=== PATIENT | male | born 1960 | race Caucasian/White ===

== ENCOUNTER → 2016-06-09 | Outpatient (CLI) | payer BC ==
[~2016-06-09] MED LIST: CEPH500C PO; LEVO75TA5 PO; LEVO88TA PO; LISI-729 PO
[2016-06-09 09:52] LABS: BASO % 1.8 %; BASO ABS # 0.08 K/uL (0-0.2); COMPLETE YES; EOS % 4.5 %; HEMATOCRIT 45.4 % (42-52); IG% 1.8 %; LYMPH % 21.5 %; LYMPH ABS # 0.96 K/uL (1.2-3.4); MEAN CELL VOLUME 89.7 fL (80-100); MEAN CORPUSCULAR HGB CONC 34.6 g/dl (32-36); MEAN PLATELET VOLUME 11.6 fL (7.4-10.4); NEUT % 57.4 %; PLATELET COUNT 213 K/uL (130-400); RED BLOOD COUNT 5.06 M/uL (4.7-6.1); WHITE BLOOD COUNT 4.46 K/uL (4.8-10.8)
[2016-06-09 10:09] LABS: ALB/GLOB RATIO 1.5 (0.9-2); ALKALINE PHOSPHATASE 71 U/L (45-117); ALT/SGPT 38 U/L (12-78); AST/SGOT 19 U/L (15-37); BLOOD UREA NITROGEN 24 mg/dl (7-18); BUN/CREATININE RATIO 25.1 (10-20); CARBON DIOXIDE 26 mmol/L (21-32); CHLORIDE 110 mmol/L (98-107); CHOLESTEROL 160 mg/dl (0-200); CHOLESTEROL/HDL RATIO 3.9; CREATININE 0.96 mg/dl (0.60-1.40); GLUCOSE 102 mg/dl (70-99); HDL CHOLESTEROL 41 mg/dl; LDL CHOLESTEROL CALCULATED 87 mg/dl; POTASSIUM 4.1 mmol/L (3.5-5.1); SODIUM 142 mmol/L (136-145); TRIGLYCERIDES 161 mg/dl (0-150); VERY LOW DENSITY LIPOPROT CALC 32 mg/dl
[2016-06-09 10:13] LABS: CALCIUM 9.3 mg/dl (8.5-10.1); ESTIMATED AVERAGE GLUCOSE 111 mg/dl; HA1C FLAG Normal (Normal)
== END | disposition home or self-care (01) ==
LOC: C.LAB1850 07:51
PROVIDERS: ATTEND Nurse Practitioner Family
DX: E03.9 Hypothyroidism, unspecified (principal); E88.81 Metabolic syndrome and other insulin resistance

== ENCOUNTER → 2016-07-31 | Outpatient (CLI) | payer BC ==
[2016-07-31 10:14] LABS: CALCIUM 9.8 mg/dl (8.5-10.1)
[2016-07-31 10:16] LABS: BLOOD UREA NITROGEN 22 mg/dl (7-18); BUN/CREATININE RATIO 22.1 (10-20); CARBON DIOXIDE 25 mmol/L (21-32); CHLORIDE 108 mmol/L (98-107); GLUCOSE 103 mg/dl (70-99); SODIUM 142 mmol/L (136-145)
== END | disposition home or self-care (01) ==
LOC: C.LAB1850 08:42
PROVIDERS: ATTEND Nurse Practitioner Family
DX: Z11.59 Encounter for screening for other viral diseases (principal); I10 Essential (primary) hypertension; E03.9 Hypothyroidism, unspecified

== ENCOUNTER 2016-08-12 15:04 | Emergency (ER) | payer BC ==
[~2016-08-12] VITALS: Ht 177.8 cm; Wt 97.3 kg
[~2016-08-12 15:04] MED LIST changes: -CEPH500C PO; -LEVO88TA PO; -LISI-729 PO
[2016-08-12 15:15] VITALS: TEMP 36.4; Ht 177.8 cm; Wt 97.3 kg
[2016-08-12] MEDS ORDERED: LEVO88TA PO (15:23)
[2016-08-12] MEDS ORDERED: LISI-729 PO (15:23)
[2016-08-12] MEDS ORDERED: XYLOCAINE 1%/SOD BICARB 20 ML VIAL INFIL ONE (15:45)
[2016-08-12] MEDS ORDERED: BUPIVACAINE 0.5 % 5 MG/1 ML MPF 30ML VIAL INFIL ONE (15:45)
[2016-08-12] MEDS ORDERED: DIPHTHERIA/TETANUS/PERTUSSIS 0.5 ML SYR/VIAL IM. ONE (16:15)
--- NOTE | 2016-08-12 16:40 | DIAGNOSTIC IMAGING REPORT ---
RIGHT HAND 3 VIEWS CLINICAL HISTORY: Right hand pain. Crushing injury. Fifth digit laceration. FINDINGS: 3 views of the right hand are obtained. No prior studies are available for comparison at the time of dictation. The skeletal structures are well mineralized. No fracture is seen. The joint spaces of the hand are well-maintained. Minimal degenerative change is seen at the distal radial ulnar joint. Soft tissue swelling is present dorsally, greatest overlying the fifth digit. No radiodense foreign body is seen. IMPRESSION: 1. There is no radiographic evidence of fracture in the right hand. 2. Soft tissue swelling is seen dorsally, greatest overlying the fifth finger. Electronically signed by: Aneesh Ivey M.D. 08/12/2016 4:39 PM Dictated Date/Time: 08/12/2016 4:37 PM
[2016-08-12] MEDS ORDERED: CEPH500C PO (17:14)
--- NOTE | 2016-08-12 17:18 | EMERGENCY ROOM VISIT NOTE ---
ED Visit Note First contact with patient: 15:30 CHIEF COMPLAINT: Finger laceration HISTORY OF PRESENT ILLNESS: This 55-year-old male patient presents to the emergency department approximately one hour after cutting the medial and lateral aspects of the right fifth finger as well as the dorsal aspect of his right hand when he dropped a transmission on his hand. The bleeding has mostly stopped, however he continues to experience bleeding with agitation of the wound. Denies weakness or numbness of the finger. The patient has full range of motion of the fingers. The patient rates the pain as throbbing and 9/10. The patient denies any other injuries. The patient's tetanus shot is not up to date. He should and is right-handed. He denies wrist discomfort. REVIEW OF SYSTEMS: A 6 system review of systems was completed with positives and pertinent negatives listed in the HPI. ALLERGIES: None MEDICATIONS: Synthroid, lisinopril PMH: Hypothyroidism, hypertension SOCIAL HISTORY: Lives locally with his family. He denies tobacco, alcohol, drug use. PHYSICAL EXAM: Vital Signs: Reviewed Nurse's notes, vital signs stable. GENERAL : 55-year-old male, in no acute distress, well developed, well nourished. SKIN : There are 2- 1.5 cm long lacerations on the medial and lateral aspect of the right fifth finger. There is also a 2 cm laceration on the medial, dorsal aspect of the right hand. The edges of all lacerations gape apart with traction. There are no foreign materials in the wounds and they look clean. There is minimal active bleeding. No deep structures such as tendons, bones, or significant blood vessels are seen in the base of the wounds. Extension and flexion of the finger is full and strong. Full range of motion of the wrist and other fingers. Capillary refill less than 2 seconds. Normal sensation to light and sharp touch. Strength in fingers and hand 5/5. EMERGENCY DEPARTMENT COURSE: I examined the patient. Verbal consent was obtained to perform the procedure. Using sterile technique the wound was cleansed with Betadine. 5 ml of 1% buffered lidocaine with 0.5% bupivocaine was used to perform a digital block to anesthetize the patient. 2ml of 1% buffered lidocaine was used to locally anesthetize the wound on the hand. The area was sterilely draped. Once the patient was anesthetized, the wound was copiously irrigated under pressure with sterile saline. The wounds were explored and there were no deep structures injured. The laceration of the hand was repaired using 7 simple interrupted 5-0 nylon sutures. The laceration on the medial aspect of the finger was repaired using 5 simple interrupted 5-0 nylon sutures. The laceration on the lateral aspect of the finger was repaired using 4 simple interrupted 5-0 nylon sutures. The patient tolerated the procedure well. Hemostasis was achieved. The area was cleaned with sterile saline and dressed with bacitracin ointment and bandage. The patient was given a tetanus booster. An X-ray of the hand was performed to r/o FB or fracture. Results were read by myself and radiology and are as follow: FINDINGS: 3 views of the right hand are obtained. No prior studies are available for comparison at the time of dictation. The skeletal structures are well mineralized. No fracture is seen. The joint spaces of the hand are well-maintained. Minimal degenerative change is seen at the distal radial ulnar joint. Soft tissue swelling is present dorsally, greatest overlying the fifth digit. No radiodense foreign body is seen. IMPRESSION: 1. There is no radiographic evidence of fracture in the right hand. 2. Soft tissue swelling is seen dorsally, greatest overlying the fifth finger. Results were reviewed and the patient was discharged home in good condition. DIAGNOSIS: Finger laceration, hand laceration DIFFERENTIAL DIAGNOSIS: Metacarpal fracture, phalange fracture, abrasion, contusion, soft-tissue damage such as tendon or ligamentous rupture or sprain, and others. DISCHARGE INSTRUCTIONS & TREATMENT: Cephalexin(Keflex) 500mg: Take one pill four times daily for 10 days for your skin infection. All antibiotics can cause diarrhea. If this occurs and you feel worse or it does not resolve in 1-2 days follow up with your doctor or return to the Emergency Department as this could be signs of serious underlying problems. Any medication can cause an allergic reaction, stop the pills immediately and return to the ER for rash, hives, breathing difficulties, or swelling. You have received 16 total sutures on your right pinky and hand. These sutures are NOT dissolvable and WILL need to be removed by a health care provider in 8- 10 days. You can return to the Emergency Department or contact your Primary Care Provider to have the sutures removed. Proper wound care is essential for adequate wound healing and infection prevention. You can shower and clean the wound with soap and water. Do not scour over the wound, pat dry with a towel. Do not submerse the wound (i.e. bathe or dish wash) until the sutures have been removed. You can use an antibiotic ointment with a dressing over the wound for the next 3-4 days. After this time you may leave the wound dry and open to the air. If crust develops over the wound you can use a Q-tip to apply a 1:1 peroxide:water solution to clean the wound. Look for signs of infection of the wound including: increased pain, swelling, foul discharge, streaking, or increased temperature. If any of these are noticed you should return to the Emergency Department for further assessment and treatment. As with any laceration you may have received nerve damage to the surrounding tissues. This damage may or may not be permanent. You should keep the area covered with sunscreen for the first 6 months to 1 year when at risk for exposure to help minimize scarring. You can also use scar reducing creams or Vitamin E oil to help minimize scarring. For pain control, you can use the following [id number] medicines (if >12 yo): - Regular strength (325mg/tab) Tylenol (acetaminophen) 2 tabs every 4-6 hours as needed. Do not exceed 12 tablets in a 24 hour period. Avoid taking more than 4 grams (4000 mg) of Tylenol per day. This includes any other sources of acetaminophen you may take on a regular basis. - Regular strength (200 mg/tab) Advil (ibuprofen) 1-2 tabs every 4-6 hours as needed. Do not exceed a dose of 3200 mg per day. Return to the emergency department if your symptoms worsen despite treatment course outlined above. Follow-up with your PCP in 2-3 days for recheck. Current/Historical Medications Scheduled Cephalexin Monohydrate (Keflex), 500 MG PO QID Levothyroxine Sodium (Synthroid), 88 MCG PO DAILY Lisinopril (Zestril), 5 MG PO DAILY Allergies Coded Allergies: No Known Allergies (Unverified , 12/29/15) Vital Signs Date Time Temp Pulse Resp B/P (MAP) Pulse Ox O2 Delivery O2 Flow Rate FiO2 08/12/16 17:26 62 18 120/62 97 08/12/16 15:15 36.4 59 18 115/56 96 Room Air Medications Administered Medications (Trade) Dose Ordered Sig/Ronnie Route Start Time Stop Time Status Last Admin Dose Admin Diphtheria/ Pertussis/Tetanus Vacc (Adacel Inj) 0.5 ml ONCE ONCE IM. 08/12/16 16:15 08/12/16 16:16 DC 08/12/16 16:18 0.5 ML Departure Information Impression Primary Impression: Laceration of finger Additional Impression: Laceration of hand Dispostion Home / Self-Care Condition GOOD Prescriptions Cephalexin Monohydrate (Keflex) 500 Mg Cap 500 MG PO QID for 10 Days, #40 CAP Prov: Tiffany Barney PA-C 08/12/16 Referrals No Doctor, Assigned (PCP) Patient Instructions [facility], [facility] Additional Instructions Cephalexin(Keflex) 500mg: Take one pill four times daily for 10 days for your skin infection. All antibiotics can cause diarrhea. If this occurs and you feel worse or it does not resolve in 1-2 days follow up with your doctor or return to the Emergency Department as this could be signs of serious underlying problems. Any medication can cause an allergic reaction, stop the pills immediately and return to the ER for rash, hives, breathing difficulties, or swelling. You have received 16 total sutures on your right pinky and hand. These sutures are NOT dissolvable and WILL need to be removed by a health care provider in 8- 10 days. You can return to the Emergency Department or contact your Primary Care Provider to have the sutures removed. Proper wound care is essential for adequate wound healing and infection prevention. You can shower and clean the wound with soap and water. Do not scour over the wound, pat dry with a towel. Do not submerse the wound (i.e. bathe or dish wash) until the sutures have been removed. You can use an antibiotic ointment with a dressing over the wound for the next 3-4 days. After this time you may leave the wound dry and open to the air. If crust develops over the wound you can use a Q-tip to apply a 1:1 peroxide:water solution to clean the wound. Look for signs of infection of the wound including: increased pain, swelling, foul discharge, streaking, or increased temperature. If any of these are noticed you should return to the Emergency Department for further assessment and treatment. As with any laceration you may have received nerve damage to the surrounding tissues. This damage may or may not be permanent. You should keep the area covered with sunscreen for the first 6 months to 1 year when at risk for exposure to help minimize scarring. You can also use scar reducing creams or Vitamin E oil to help minimize scarring. For pain control, you can use the following jucc-sth-rpqscia medicines (if >12 yo): - Regular strength (325mg/tab) Tylenol (acetaminophen) 2 tabs every 4-6 hours as needed. Do not exceed 12 tablets in a 24 hour period. Avoid taking more than 4 grams (4000 mg) of Tylenol per day. This includes any other sources of acetaminophen you may take on a regular basis. - Regular strength (200 mg/tab) Advil (ibuprofen) 1-2 tabs every 4-6 hours as needed. Do not exceed a dose of 3200 mg per day. Return to the emergency department if your symptoms worsen despite treatment course outlined above. Follow-up with your PCP in 2-3 days for recheck. Problem Qualifiers Primary Impression: Laceration of finger Encounter type: initial encounter Finger: little finger Damage to nail status: without damage Foreign body presence: without foreign body Laterality: right Qualified Codes: S61.216A - Laceration without foreign body of right little finger without damage to nail, initial encounter Additional Impression: Laceration of hand Encounter type: initial encounter Foreign body presence: without foreign body Laterality: right Qualified Codes: S61.411A - Laceration without foreign body of right hand, initial encounter
[2016-08-12 17:26] VITALS: BP 120/62; PULSE 62; O2SAT 97
== END 2016-08-12 17:26 | disposition home or self-care (01) ==
LOC: C.EDB 15:05 → C.EDD 17:26
DX: S61.216A Laceration without foreign body of right little finger without damage to nail, initial encounter (principal); S61.411A Laceration without foreign body of right hand, initial encounter; W22.8XXA Striking against or struck by other objects, initial encounter; I10 Essential (primary) hypertension; E03.9 Hypothyroidism, unspecified; Z79.899 Other long term (current) drug therapy; Z23 Encounter for immunization

== ENCOUNTER 2016-08-22 11:29 | Emergency (ER) | payer BC ==
[~2016-08-22] VITALS: Ht 177.8 cm; Wt 100.2 kg
[~2016-08-22 11:29] MED LIST changes: +CEPH500C PO; -LEVO75TA5 PO; +LEVO88TA PO; +LISI-729 PO
[2016-08-22 11:40] VITALS: BP 138/83; PULSE 62; TEMP 36.7; O2SAT 97; Ht 177.8 cm; Wt 100.2 kg
--- NOTE | 2016-08-22 15:43 | EMERGENCY ROOM VISIT NOTE ---
ED Visit Note First contact with patient: 11:47 CHIEF COMPLAINT: Suture removal This patient returns to the ED today for removal of sutures that were placed 10 days ago. There has been no swelling, redness, or drainage from the wound. The patient feels like the laceration is healing well. REVIEW OF SYSTEMS: Head: No headache, injury or neck pain. Skin: No rash, new lesions, or masses. General: No fever or chills, fatigue, loss of appetite , or significant recent weight gain or loss. PMH: Reviewed and unchanged from prior visit. SOCIAL HISTORY: Patient lives at home. PHYSICAL EXAM: Vital Signs: Reviewed Nurse's notes. There are 3 sutured wounds on the right fifth finger with no signs of infection. There is no erythema, swelling, or tenderness. EMERGENCY DEPARTMENT COURSE: The sutures were removed without any difficulty and there was no separation of the wound edges. DIAGNOSIS: Healing laceration and suture removal DISCHARGE INSTRUCTIONS AND TREATMENT: Wash any remaining crusts off of the wound today and resume your normal activities. Current/Historical Medications Scheduled Cephalexin Monohydrate (Keflex), 500 MG PO QID Levothyroxine Sodium (Synthroid), 88 MCG PO DAILY Lisinopril (Zestril), 5 MG PO DAILY Allergies Coded Allergies: No Known Allergies (Unverified , 08/22/16) Vital Signs Date Time Temp Pulse Resp B/P (MAP) Pulse Ox O2 Delivery O2 Flow Rate FiO2 08/22/16 11:40 36.7 62 18 138/83 97 Room Air Departure Information Impression Primary Impression: Encounter for removal of sutures Dispostion Home / Self-Care Condition GOOD Referrals No Doctor, Assigned (PCP) Forms HOME CARE DOCUMENTATION FORM, IMPORTANT VISIT INFORMATION Patient Instructions [facility]
== END 2016-08-22 12:07 | disposition home or self-care (01) ==
LOC: C.EDB 11:30 → C.EDD 12:07
DX: S61.216D Laceration without foreign body of right little finger without damage to nail, subsequent encounter (principal); X58.XXXD Exposure to other specified factors, subsequent encounter

== ENCOUNTER 2020-02-07 09:50 | Inpatient (IN) ==
[2020-02-07] MEDS ORDERED: NITROGLYCERIN SL 0.4 MG/TAB TAB SL PRN (10:00)
[2020-02-07] MEDS ORDERED: ASPIRIN CHEW 324 MG PO STA (10:00)
--- NOTE | 2020-02-07 10:04 | Emergency Department Note ---
Impression & Plan ST elevation (STEMI) myocardial infarction, Chest pain ED Provider Note NAME: MICHAEL CARTAGENA AGE: 59 SEX: M : 1960 ARRIVES VIA: Walk-In INFORMANT: Patient, ED PROVIDER(S): Miller Jay MD Chief Complaint: Chest pain HPI: Patient does present with chest pain beginning approximately 1 hour prior to arrival. The patient states he was drinking a protein shake and developed a centralized chest and throat discomfort. Patient does not have any difficulty swallowing but states that it improved after walking for about 15 minutes but recurred while sitting down at his computer and this presented. Patient denies any fevers chills or shortness of breath. The patient states that his pain does go into the bilateral arms. Patient denies any nausea or vomiting or lower extremity swelling. No prior history of DVT or PE. The patient denies any recent travel or surgical procedures. Patient does have family history of DC in his father who had an DC in his 50s. ROS: See HPI for pertinent positives and negatives. A total of 10 systems were reviewed and otherwise negative. Past medical history: See below Surgical history: See below Social history: See below Physical Exam: GENERAL: Patient wearing a mask. NAD, non-toxic. EYE EXAM: Normal conjunctiva. PERRL, no anisocoria and EOM's grossly intact w/o pain. NECK: Supple, no nuchal rigidity, no adenopathy, non-tender. No signs of meningismus. LUNGS: Clear to auscultation. Normal chest wall mechanics. HEART: NSR, no MRG. ABDOMEN: Abdomen soft, non-tender, normo-active bowel sounds, no masses, no rebound or guarding. BACK: No CVA TTP. SKIN: No rashes and no bruising. UPPER EXTREMITIES: Upper extremities are grossly normal. LOWER EXTREMITIES: Grossly normal, no edema. NEURO EXAM: A&O x3, cranial nerves II-XII grossly intact, normal speech, moves all 4 extremities on command w/o issue. Differential diagnoses: Cardiac ischemia, aortic dissection, pulmonary embolism, pneumothorax, pneumonia, pericarditis, myocarditis, esophageal rupture, GERD, cholecystitis, pancreatitis, musculoskeletal, as well as other pathologies. Course: Patient was seen and evaluated the bedside. Full history physical exam was performed. EKG: Indication: Chest pain Sinus rhythm rate of 74, normal intervals, normal axis, ST downward sloping inferiorly with possible hyperacute T waves in V3 and V4. No priors for comparison. Repeat EKG completed at 1005 Normal sinus rhythm, rate 87, normal intervals, normal axis, persistent downward sloping ST segment inferiorly with hyperacute T waves seen anteriorly. Imaging Studies: None Cardiac monitoring: An order was placed for continuous cardiac monitoring. The monitor shows a rate of 88 with sinus rhythm. MDM: Patient was seen due to concerns for chest pain. Repeat EKG was obtained which did show concern for hyperacute T waves. The patient did receive full dose aspirin 1 nitro with improvement in pain. Heparin bolus and drip were ordered. Heart alert had been initiated upon viewing the second EKG. I did speak with the patient's at the patient's behest. She understood the plan. I did talk with the loading unit tool setter Dr. Raman and the patient was taken to the S[facility]per. The patient was admitted to the medicine service by Dr. Gould. Critical Care: I have personally spent 55 minutes of critical care time in direct management of this patient. This includes bedside care, interpretation of diagnostic studies, and testing, discussion with consultants, patient, and family members, and other require inpatient management activities. This 55 minutes is in excess of all separately billable procedures. Past Med/Surg History Medical History (Updated 02/07/20 @ 11:47 by Miller Jay MD) BPH (benign prostatic hyperplasia) Dysmetabolic syndrome X Hypertension Hypothyroidism Surgical History History of bilateral cataract extraction History of colonoscopy History of tooth extraction [place] teeth removed Family History Sister Colonic polyp Mother Hypothyroidism Colorectal cancer Father Cardiac disorder Myocardial infarction Other No family history of adverse response to anesthesia Denies family history of Ovarian cancer Prostate cancer Breast cancer Social History Smoking Status: Former smoker Tobacco Type: Cigarettes Age Started Using Tobacco: 13; Age Quit Using Tobacco: 21; packs per day: 1; Years Smoked: 8; Second Hand Exposure: Yes (parents smoked); Hx Alcohol Use: No Hx Substance Use: No Preferred Language: Stateless Communication Ability: Effective Visual Impairment: No Limitations Hearing Ability: Normal Mainframe Systems Administrator Required: No Beliefs That Will Affect Care: None marital status: Current Living Situation: Spouse current occupational status: employed 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 Feels Safe at Home: Yes Childhood Exposure to Second-Hand Smoke: Yes Dental Care, Regularly: Yes Physical Activity Frequency: 5-6 Times per Week Seatbelt Use: always Sunscreen Use: No Assistive Devices: Glasses Allergies Allergies Allergy/AdvReac Type Severity Reaction Status Date / Time No Known Allergies Allergy Verified 02/07/20 10:14 Home Meds Home Medications Medication Instructions Recorded Confirmed levothyroxine 100 mcg PO QAM 02/07/20 02/07/20 Previous Rx's Medication Instructions Recorded tamsulosin 0.4 mg capsule 0.4 mg PO HS #30 cap 02/18/19 Results & Data (ED) Vital Signs Vital Signs - 24 hr 02/07/20 09:56 02/07/20 09:59 02/07/20 10:00 Temperature 36.6 C Temperature Source Oral Pulse Rate 90 100 H 93 H Pulse Rate from SpO2 Sensor 92 H 100 H 93 H Pulse Rhythm Respiratory Rate 12 17 19 Respiratory Effort / Characteristics Non-Labored Spontaneous Respiratory Depth Normal Respiratory Pattern Regular Blood Pressure 172/101 H 158/97 H Blood Pressure Mean 123 113 Blood Pressure Position Lying Pulse Oximetry 100 100 100 Oxygen Delivery Method Room Air Sepsis Recent Fever Within 48 Hours No Sepsis New/Unexplained Change in Mental Status N/A Sepsis Action Taken by Nursing No Action Required 02/07/20 10:01 02/07/20 10:15 02/07/20 10:19 Temperature Temperature Source Pulse Rate 92 H 85 77 Pulse Rate from SpO2 Sensor 93 H 84 78 Pulse Rhythm Regular Respiratory Rate 18 19 18 Respiratory Effort / Characteristics Respiratory Depth Respiratory Pattern Blood Pressure 134/88 Blood Pressure Mean 102 Blood Pressure Position Pulse Oximetry 100 100 100 Oxygen Delivery Method Room Air Sepsis Recent Fever Within 48 Hours Sepsis New/Unexplained Change in Mental Status Sepsis Action Taken by Nursing 02/07/20 10:30 02/07/20 10:31 02/07/20 10:44 Temperature 36.6 C Temperature Source Oral Pulse Rate 72 69 69 Pulse Rate from SpO2 Sensor 72 72 Pulse Rhythm Respiratory Rate 20 20 20 Respiratory Effort / Characteristics Respiratory Depth Respiratory Pattern Blood Pressure 145/89 H 145/89 H Blood Pressure Mean 95 Blood Pressure Position Pulse Oximetry 97 99 99 Oxygen Delivery Method Room Air Sepsis Recent Fever Within 48 Hours Sepsis New/Unexplained Change in Mental Status Sepsis Action Taken by [facility] Medications Current Medication List: was personally reviewed by me Laboratory Data Attestation: I reviewed the patient's lab results. Result diagrams: 02/07/20 10:05 02/07/20 10:05 Lab Results 02/07/20 02/07/20 02/07/20 Range/Units 10:05 10:05 10:05 WBC 6.41 (4.8-10.8) K/uL RBC 5.20 (4.7-6.1) M/uL Hgb 16.5 (14.0-18.0) g/dL Hct 46.4 (42-52) % MCV 89.2 (80-100) fL MCH 31.7 (25-34) pg MCHC 35.6 (32-36) g/dL RDW Std Deviation 40.9 (36.4-46.3) fL RDW Coeff of Gary 12.6 (11.5-14.5) % Plt Count 222 (130-400) K/uL MPV 11.0 H (7.4-10.4) fL Immature Gran % (Auto) 1.4 % Neut % (Auto) 61.3 % Lymph % (Auto) 21.2 % [place] % (Auto) 11.9 % Eos % (Auto) 3.7 % Baso % (Auto) 0.5 % Neut # (Auto) 3.93 (1.4-6.5) K/uL Lymph # (Auto) 1.36 (1.2-3.4) K/uL [place] # (Auto) 0.76 H (0.11-0.59) K/uL Eos # (Auto) 0.24 (0-0.5) K/uL Baso # (Auto) 0.03 (0-0.2) K/uL Immature Gran # (Auto) 0.09 H (0.00-0.02) K/uL PT 11.4 (9.0-12.0) Seconds INR 1.1 (0.9-1.1) APTT 24.3 (21.0-31.0) Seconds PTT Ratio 0.9 Sodium 140 (136-145) mmol/L Potassium 3.3 L (3.5-5.1) mmol/L Chloride 107 (98-107) mmol/L Carbon Dioxide 26 (21-32) mmol/L Anion Gap 7.0 (3-11) BUN 19 H (7-18) mg/dl Creatinine 1.07 (0.6-1.4) mg/dl Est Cr Clr Drug Dosing 87.5 ml/min Est GFR ( Amer) 87.0 Est GFR (Non-Af Amer) 75.1 BUN/Creatinine Ratio 17.5 (10-20) Glucose 139 H (70-99) mg/dl Calcium 9.1 (8.5-10.1) mg/dl Total Bilirubin 0.9 (0.2-1) mg/dl AST 29 (15-37) U/L ALT 43 (12-78) U/L Alkaline Phosphatase 84 (45-117) U/L Troponin I 0.036 (0-0.045) ng/ml Total Protein 7.6 (6.4-8.2) gm/dl Albumin 4.3 (3.4-5.0) gm/dl Globulin 3.3 (2.5-4.0) gm/dl Albumin/Globulin Ratio 1.3 (0.9-2) Lipase 122 (73-393) U/L Specimen Hemolysis COVID-19 Eval Order SARS-CoV-2, RNA, NAAT (NEGATIVE) 02/07/20 02/07/20 Range/Units 10:10 10:10 WBC (4.8-10.8) K/uL RBC (4.7-6.1) M/uL Hgb (14.0-18.0) g/dL Hct (42-52) % MCV (80-100) fL MCH (25-34) pg MCHC (32-36) g/dL RDW Std Deviation (36.4-46.3) fL RDW Coeff of Gary (11.5-14.5) % Plt Count (130-400) K/uL MPV (7.4-10.4) fL Immature Gran % (Auto) % Neut % (Auto) % Lymph % (Auto) % [place] % (Auto) % Eos % (Auto) % Baso % (Auto) % Neut # (Auto) (1.4-6.5) K/uL Lymph # (Auto) (1.2-3.4) K/uL [place] # (Auto) (0.11-0.59) K/uL Eos # (Auto) (0-0.5) K/uL Baso # (Auto) (0-0.2) K/uL Immature Gran # (Auto) (0.00-0.02) K/uL PT (9.0-12.0) Seconds INR (0.9-1.1) APTT (21.0-31.0) Seconds PTT Ratio Sodium (136-145) mmol/L Potassium (3.5-5.1) mmol/L Chloride (98-107) mmol/L Carbon Dioxide (21-32) mmol/L Anion Gap (3-11) BUN (7-18) mg/dl Creatinine (0.6-1.4) mg/dl Est Cr Clr Drug Dosing ml/min Est GFR ( Amer) Est GFR (Non-Af Amer) BUN/Creatinine Ratio (10-20) Glucose (70-99) mg/dl Calcium (8.5-10.1) mg/dl Total Bilirubin (0.2-1) mg/dl AST (15-37) U/L ALT (12-78) U/L Alkaline Phosphatase (45-117) U/L Troponin I (0-0.045) ng/ml Total Protein (6.4-8.2) gm/dl Albumin (3.4-5.0) gm/dl Globulin (2.5-4.0) gm/dl Albumin/Globulin Ratio (0.9-2) Lipase (73-393) U/L Specimen Hemolysis COVID[facility]19 [facility], [facility], NAAT NEGATIVE (NEGATIVE) Administered Medications Heparin Sodium/Dextrose (Heparin Sodium/Dextrose) 25,000 units in 500 mls @ 20 mls/hr IV .Q24H [facility]; Protocol Stop: 03/08/20 10:14 Last Admin: 02/07/20 10:21 Dose: 1,000 units/hr, 20 mls/hr Documented by: [id number] Cosigned by: [id number] Nitroglycerin (Nitroglycerin Sl 0.4 Mg/Tab Tab) 0.4 mg SL UD PRN PRN Reason: Chest Pain Stop: 03/08/20 09:59 Last Admin: 02/07/20 10:06 Dose: 0.4 mg Documented by: [id number] Discontinued Medications Aspirin (Aspirin Chew 324 Mg) 324 mg PO NOW STA Stop: 02/07/20 10:01 Last Admin: 02/07/20 10:06 Dose: 324 mg Documented by: [id number] Heparin Sodium (Porcine) (Heparin Sod (Porcine) 1000 Unit/Ml 10 Ml Vial) 4,000 units IV NOW STA Stop: 02/07/20 10:16 Last Admin: 02/07/20 10:21 Dose: 4,000 units Documented by: [id number] Cosigned by: [id number] Heparin Sodium/Dextrose (Heparin Iv Low Dose With Bolus) 1 ea IV NOW STA; Protocol Stop: 02/07/20 10:11 Last Admin: 02/07/20 10:26 Dose: Not Given Documented by: [id number] Discharge Plan Visit Data Chief Complaint: Chest Pain Stated Complaint: CHEST PAIN ED Provider: Miller Jay Discharge Problem: ST elevation (STEMI) myocardial infarction, Chest pain Discharge Instructions Interventions: ED Discharge Assessment Last Done: 02/07/20 10:44 Discharge Problem: ST elevation (STEMI) myocardial infarction Qualifiers: Involved coronary artery: unspecified coronary artery Qualified Code(s): I21.3 - ST elevation (STEMI) myocardial infarction of unspecified site Chest pain Qualifiers: Chest pain type: unspecified Qualified Code(s): R07.9 - Chest pain, unspecified
[2020-02-07] MEDS ORDERED: Heparin IV Adult Wt-Based Low-Dose WITH Bolus Protocol IV STA (10:10)
[2020-02-07 10:12] LABS: Basophils # (auto) 0.03 K/uL (0-0.2); Basophils % (auto) 0.5 %; Eosinophils # (auto) 0.24 K/uL (0-0.5); Eosinophils % (auto) 3.7 %; Hematocrit (blood only) 46.4 % (42-52); Hemoglobin 16.5 g/dL (14.0-18.0); Immature Granulocytes # (auto) 0.09 K/uL (0.00-0.02); Immature Granulocytes % (auto) 1.4 %; Lymphocytes # (auto) 1.36 K/uL (1.2-3.4); Lymphocytes % (auto) 21.2 %; Mean Corpuscular Hemoglobin 31.7 pg (25-34); Mean Corpuscular Hgb Conc 35.6 g/dL (32-36); Mean Corpuscular Volume 89.2 fL (80-100); Monocytes # (auto) 0.76 K/uL (0.11-0.59); Monocytes % (auto) 11.9 %; Neutrophils # (auto) 3.93 K/uL (1.4-6.5); Neutrophils % (auto) 61.3 %; Platelet Count 222 K/uL (130-400); RDW Coefficient of Variation 12.6 % (11.5-14.5); RDW Standard Deviation 40.9 fL (36.4-46.3); White Blood Count 6.41 K/uL (4.8-10.8)
[2020-02-07] MEDS ORDERED: HEPARIN SODIUM/DEXTROSE 25,000 UNITS/500 ML BAG IV SCH (10:15)
[2020-02-07] MEDS ORDERED: HEPARIN SOD (PORCINE) 1000 UNIT/ML 10 ML VIAL IV STA (10:15)
[2020-02-07] MEDS ORDERED: niCARdipine HCL INJ 2.5 MG/ML 10 ML AMP ONE (10:30)
[2020-02-07] MEDS ORDERED: HEPARIN (PORCINE) 1000 UNIT/ML 10 ML (CATH LAB USE ONLY) ONE ×2 (10:30→11:14)
[2020-02-07] MEDS ORDERED: MIDAZOLAM HCL 1 MG/ML 2ML VIAL ONE ×2 (10:30→11:01)
[2020-02-07] MEDS ORDERED: fentaNYL citrate 100 MCG/2 ML VIAL ONE (10:31)
[2020-02-07] MEDS ORDERED: NITROGLYCERIN/D5W 100MCG/ML 20ML SYR ONE (10:31)
[2020-02-07 10:43] LABS: Albumin Globulin Ratio 1.3 (0.9-2); Albumin Level 4.3 gm/dl (3.4-5.0); BUN Creatinine Ratio 17.5 (10-20); Bilirubin,Total 0.9 mg/dl (0.2-1); Calcium 9.1 mg/dl (8.5-10.1); Creatinine Clr Calc Pharmacy 87.5 ml/min; Est GFR (Non-African American) 75.1; Globulin 3.3 gm/dl (2.5-4.0); Potassium 3.3 mmol/L (3.5-5.1); Total Protein 7.6 gm/dl (6.4-8.2); Troponin I 0.036 ng/ml (0-0.045)
[2020-02-07 10:47] LABS: INR 1.1 (0.9-1.1); Partial Thromboplastin Ratio 0.9; Partial Thromboplastin Time 24.3 Seconds (21.0-31.0); Prothrombin Time 11.4 Seconds (9.0-12.0)
--- NOTE | 2020-02-07 10:49 | Pre Anesthesia Assessment ---
Date of Service February 07, 2020 Pre Sedation Assessment Vital Signs Temp Pulse Resp BP Pulse Ox 02/07/20 10:44 97.9 F 69 20 145/89 H 99 02/07/20 10:31 69 20 99 02/07/20 10:30 72 20 145/89 H 97 02/07/20 10:19 77 18 134/88 100 02/07/20 10:15 85 19 100 02/07/20 10:01 92 H 18 100 02/07/20 10:00 93 H 19 158/97 H 100 02/07/20 09:59 100 H 17 100 02/07/20 09:56 97.9 F 90 12 172/101 H 100 Cardiovascular RRR, no murmur, no edema Respiratory normal respiratory effort, lungs clear to auscultation Pre-Sedation Airway Assessment Smoking Status: Former smoker Hx Sleep Apnea: No Hx Difficult Intubation: No Short, Thick Neck: No Thyromental Distance: > or= 3.5 Finger Breadths Oral Cavity: + WNL Mallampati Class: III ASA: ASA3 Procedure Planning Contraindications for Sedation: none Current Medications Reviewed: Yes Notes The planned sedation has been discussed with the patient. Informed Consent was obtained. I have identified the patient, determined the appropriateness of sedation and have assessed the patient immediately prior to the procedure. All medicine(s) and interventions are by my order.
--- NOTE | 2020-02-07 10:53 | Cardiology Consultation ---
Date of Consultation February 07, 2020 Assessment & Plan (1) Acute [place]: Presentation consistent with anterior STEMI and recommend proceeding with emergent cardiac catheterization and likely primary PCI. No apparent contraindications to procedure. Discussed risks, benefits, alternatives of procedure with patient and they are willing to proceed. Given IV heparin in the ED. Further recommendations pending findings of coronary angiography. History of Present Illness History of Present Illness 59-year-old man here with acute chest pain and ECG concerning for acute NY. Patient seen emergently in the ED after heart alert activated upon arrival. No prior cardiac history. Cardiac risk factors include family history of CAD, father had an [place] at 59, from cardiac complications age 60. Other medical issues include BPH, hypothyroidism. Chest pain began approximately 830 this morning while getting ready to exercise, approximately an hour and a half before arrival to ED. Describes diffuse chest pain with associated nausea and weakness in both arms. Denies similar symptoms in the past. Given aspirin, heparin, nitroglycerin in ED. Chest pain at its worst 6 out of 10, currently 2 out of 10. Hemodynamically stable. EKG showed anterior ST the patient with hyperacute T waves. Allergies Allergy/AdvReac Type Severity Reaction Status Date / Time No Known Allergies Allergy Verified 02/07/20 10:14 Home Medications Medication Instructions Recorded Confirmed Type tamsulosin 0.4 mg capsule 0.4 mg PO HS #30 cap 02/18/19 02/07/20 Rx levothyroxine 100 mcg PO QAM 02/07/20 02/07/20 History Patient History Medical History (Updated 02/07/20 @ 11:47 by Miller Jay MD) BPH (benign prostatic hyperplasia) Dysmetabolic syndrome X Hypertension Hypothyroidism Surgical History History of bilateral cataract extraction History of colonoscopy History of tooth extraction [place] teeth removed Family History Sister Colonic polyp Mother Hypothyroidism Colorectal cancer Father Cardiac disorder Myocardial infarction Other No family history of adverse response to anesthesia Denies family history of Ovarian cancer Prostate cancer Breast cancer Social History Smoking Status: Former smoker Tobacco Type: Cigarettes Age Started Using Tobacco: 13; Age Quit Using Tobacco: 21; packs per day: 1; Years Smoked: 8; Second Hand Exposure: Yes (parents smoked); Hx Alcohol Use: No Hx Substance Use: No Preferred Language: Danish Communication Ability: Effective Visual Impairment: No Limitations Hearing Ability: Normal Hospital Corpsman Required: No Beliefs That Will Affect Care: None marital status: Current Living Situation: Spouse current occupational status: employed 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 Feels Safe at Home: Yes Childhood Exposure to Second-Hand Smoke: Yes Dental Care, Regularly: Yes Physical Activity Frequency: 5-6 Times per Week Seatbelt Use: always Sunscreen Use: No Assistive Devices: Glasses Review of Systems Review of Systems: Not completed in the setting of emergent situation Physical Exam Physical Exam: General: Comfortable, no acute distress Eyes: Sclerae anicteric, extraocular movements intact HENT: Mask in place Lungs: Clear anteriorly Cardiac: Regular rate and rhythm, no murmurs Abdomen: Soft, nontender Neuro: Nonfocal Psych: Alert orient x3, normal affect and mood Extremities/Vascular: -- 2+ radial bilaterally -- No edema Results & Data ([facility]) Vital Signs (Past 12 Hours) Vital Signs Temp Pulse Resp BP Pulse Ox 02/07/20 10:44 97.9 F 69 20 145/89 H 99 02/07/20 10:31 69 20 99 02/07/20 10:30 72 20 145/89 H 97 02/07/20 10:19 77 18 134/88 100 02/07/20 10:15 85 19 100 02/07/20 10:01 92 H 18 100 02/07/20 10:00 93 H 19 158/97 H 100 02/07/20 09:59 100 H 17 100 02/07/20 09:56 97.9 F 90 12 172/101 H 100 PG Care Time/CCT Total # of Minutes Spent Total Time Spent with Patient: Total time spent is greater than 50% in coordination of care (as documented) at patient's floor/unit and/or counseling patient: Coding Level of Care Code 46034 Inpt Consult Level 5 Diagnoses Acute [place] I21.9
[2020-02-07] MEDS ORDERED: TICAGRELOR 90 MG TAB PO ONE (11:45)
[2020-02-07] MEDS ORDERED: PROTAMINE SULFATE 10 MG/ML 5 ML VIAL ONE (11:46)
[2020-02-07] MEDS ORDERED: ONDANSETRON INJ 2 MG/ML 2 ML VIAL IV PRN (12:37)
[2020-02-07] MEDS ORDERED: ACETAMINOPHEN 325 MG TAB PO PRN (12:37)
[2020-02-07] MEDS ORDERED: SODIUM CHLORIDE 0.9% 1000ML 1,000 ML IV SCH (12:45)
[2020-02-07] MEDS ORDERED: ICU PROTOCOL FOR HYPERGLYCEMIA PRN (12:50)
[2020-02-07] MEDS ORDERED: INFLUENZA ADMINISTRATION CHARGE ONE (13:29)
[2020-02-07] MEDS ORDERED: INFLUENZA VIRUS QUAD VACCINE 0.5 ML SYR IM ONE (13:29)
--- NOTE | 2020-02-07 13:33 | Cardiac Catheterization ---
[facility] Data: Glass Inserter Cardiac Status Clinical evaluation leading to the procedure CAD Presenation: STEMI Anginal Classification: CCS IV Heart Failure: No Cardiogenic Shock within 24 Hours: No Cardiac Arrest within 24 Hours: No Imaging Studies Past 6 Months: No Stress Studies Past 6 Months: No Diagnostic Physicians Name: Ronal Raman MD Status: Emergency Closure Device Percutaneous Entry Location: Radial Closure Device: Radial Band Recommendations: PCI without planned CABG PCI Indication: Immediate PCI for STEMI First Noted: First EKG Lesion Segment Name: Mid LAD Culprit Artery: Yes Stenosis Prior to Rx (%): 100 Chronic Total Occlusion: No IVUS: No FFR: No Pre-Procedure JENNIFER Flow: 0 Previously Treated Lesion: No Lesion Complexity: Non-High/Non-C Lesion Length (mm): 15 Thrombus Present: Yes Bifurcation Lesion: Yes Guidewire Across Lesion: Stenosis Post-Procedure (%): 0 Post-Procedure JENNIFER Flow: 3 Devices(s) Deployed: Yes Yes Intraprocedure Events Significant Disection: No Perforation: No Cardiac Cath Procedure Full Procedure Date February 07, 2020 Pre-Procedure Diagnosis Pre-Procedure Diagnosis: STEMI AUC Score AUC Score: 9 Post-Procedure Diagnosis Post-Procedure Diagnosis: Severe CAD and Successful PCI Procedure(s) Performed Procedure(s) Performed: Coronary Angiography, Left Heart Cath and Drug Eluting Stent Insole Lip Turner Ronal Raman MD Detective Lieutenant(s) [place] Estimated Blood Loss Estimated Blood Loss: 20 Medication(s) Medication(s): Fentanyl, Heparin, Lidocaine 1%, Nicardipine, Nitroglycerin and Versed Medication(s): Ticagrelor, protamine Summary of Findings Indication: STEMI/Heart Alert Access: 6Fr right radial artery Catheters: EBU 3.5 guide, diagnostic JR4 Findings: LM - Large caliber, no significant disease LAD -medium caliber, calcified, 20 to 30% proximal disease, 100% acute mid occlusion after first septal. After flow reestablished 80% latemid stenosis after takeoff of large second diagonal. Distal vessel small, mild diffuse disease extends to apex. Circumflex -large caliber vessel, proximal/mid luminal regularities, 30% distal disease. OM 3, left PLB without significant disease. RCA -very large caliber vessel, dominant, proximal irregularities, distal vessel tortuous, mildly ectatic. Large PDA, PLB without significant disease. LVEDP -28 -- PCI -- Antithrombotic therapy: Heparin, ticagrelor Procedure: Left main cannulated with EBU 3.5 guide BMW wire wire passed across lesion into distal D2 Mid LAD lesion predilated with 2.5 compliant balloon Dilated lesion stented with 3.5 x 18 mm [place] drug-eluting stent Stent post-dilated with 4.0 noncompliant balloon IC vasodilators administered for spasm JENNIFER-3 flow and stent. JENNIFER I flow and jailed first diagonal. Hazy 80% stenosis in latemid LAD after takeoff of D2. Late to distal LAD dilated with 2.5 balloon Late to distal LAD stented right after takeoff of D2 with 2.25 x 18 mm [place] drug-eluting Stent postdilated with stent balloon Questionable contrast extravasation noted from small distal branch off of apical LAD Prolonged balloon inflation completed with 1.5 balloon in small branch of LAD. Given 10 mg of protamine Post balloon inflation contrast extravasation again noted. In addition contrast appeared to flow into the ventricular cavity Bedside echocardiogram performed. No pericardial effusion noted. Normal RV function. No clear fistula noted. Patient remained hemodynamically, electrically stable. Chest pain resolved Post procedure JENNIFER 3 flow and stents well expanded. Apparent coronarycameral fistula persists Arterial Closure: TR Band Summary: 1. Anterior STEMI/acute 100% mid LAD occlusion 2. Minimal non-culprit coronary artery disease 3. Elevated intracardiac filling pressure 4. Successful PCI of earlymid LAD with 3.5 x 18 mm [place] drug-eluting stent (postdilated with 4.0 NC). 5. Successful PCI of latemid LAD with 2.25 x 18 mm [place] drug-eluting stent. 6. 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 No evidence of pericardial effusion or tamponade. 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 Trend troponins until peak Repeat limited echocardiogram later this afternoon to rule out pericardial effusion Hold off on beta-jose m, ALTAGRACIA initially High-dose statin Consult cardiac Rehab Hemodynamics Rest Ao:: 118/79/103 Final Ao: 136/82/20 LV: 127/28 Recommendations Recommendations: PCI without planned CABG Specimens Specimens: None Radiation Exposure (mGy) 2931 Contrast (mls) 140 Fluids (cc crystalloids) Fluids (cc crystalloids): 165 Drains Drains: None Anesthesia Moderate Procedural Complication(s) None Disposition PCU I attest to the content of the Intraoperative Record and any orders documented therein. Any exceptions are noted below. [facility] Card Cath Procedure Codes Cardiac Catheterization Procedure 1: Cardiovascular Cath Procedures: 48422 Coronaries and LHC (+/-LV) Moderate Sedation Procedure 1: Sedation/Anesthesia: 70076 Mod Sedation by the same physician;Init15 Min Child Age 5 & Up Procedure 2: Sedation/Anesthesia: 92066 Mod Sedation by the same physician; Ea [id number] Minutes Stenting Procedure 1: Cardiovascular Stent Procedures: 33356 Perc transluminal revascularization of acute sub/total occl, aMI PG Care Time/CCT Total # of Minutes Spent Total Time Spent with Patient: Total time spent is greater than 50% in coordination of care (as documented) at patient's floor/unit and/or counseling patient:
--- NOTE | 2020-02-07 14:04 | History & Physical Report ---
Date of Service February 07, 2020 Assessment & Plan (1) ST elevation (STEMI) myocardial infarction: s/p PCI and x2 MIKE to LAD Continue aspirin 81mg PO daily, Brilinta 90mg PO BID Atorvastatin 80mg PO daily Metoprolol/lisinopril per cardiology recommendations (holding off initially). Repeat limited echo due to concern for possible perforation of distal vessel per cardiology recommendations to assess for pericardial effusion. Appreciate ongoing cardiology management (2) Hypothyroidism: Continue levothyroxine 100 mcg PO daily (3) BPH associated with nocturia: Continue tamsulosin 0.4mg PO HS Admission and Anticipated Discharge Date Admission Date: February 07, 2020 History of Present Illness Chief Complaint: STEMI Primary Care Provider: Abdon Soto III, CRNP Armando Castaneda is a 59 year old male who presents to the ER as a heart alert due to chest pain with ST elevation in anterior leads. Chest pain was substernal with radiation down both arms, sudden onset, severity 6/10, occurred at 830 this morning after drinking a protein shake, currently chest pain-free post cardiac catheterization. Significant family history of his father having an AL in 59 and dying the ER after this from complications. He was taken emergently to the [facility]. Discussed with Dr. Raman post cardiac catheterization The patient was seen after cardiac catheterization. He was given aspirin, heparin and nitroglycerin in the ED. PCI with x2 MIKE to LAD, some concern for possible perforation/coronary-cameral fistula and patient will be monitored with serial echocardiograms to assess for pericardial effusion. Allergies Allergy/AdvReac Type Severity Reaction Status Date / Time No Known Allergies Allergy Verified 02/07/20 10:14 Home Medications Medication Instructions Recorded Confirmed Type tamsulosin 0.4 mg capsule 0.4 mg PO HS #30 cap 02/18/19 02/07/20 Rx levothyroxine 100 mcg PO QAM 02/07/20 02/07/20 History Past Med/Surg History Medical History BPH (benign prostatic hyperplasia) Dysmetabolic syndrome X Hypertension Hypothyroidism Surgical History History of bilateral cataract extraction History of colonoscopy History of tooth extraction [place] teeth removed Family History Sister Colonic polyp Mother Hypothyroidism Colorectal cancer Father Cardiac disorder Myocardial infarction Other No family history of adverse response to anesthesia Denies family history of Ovarian cancer Prostate cancer Breast cancer Social History Smoking Status: Former smoker Tobacco Type: Cigarettes Age Started Using Tobacco: 13; Age Quit Using Tobacco: 21; packs per day: 1; Years Smoked: 8; Second Hand Exposure: No; Hx Alcohol Use: No Hx Substance Use: No Preferred Language: [place] Citizen Communication Ability: Effective Visual Impairment: No Limitations Hearing Ability: Normal Machine Steak Tenderizer Required: No Beliefs That Will Affect Care: None marital status: Current Living Situation: Spouse current occupational status: employed 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 Feels Safe at Home: Yes Childhood Exposure to Second-Hand Smoke: Yes Dental Care, Regularly: Yes Physical Activity Frequency: 5-6 Times per Week Seatbelt Use: always Sunscreen Use: No Assistive Devices: None Review of Systems Review of Systems: All systems reviewed & are unremarkable except as noted in HPI & below Genitourinary: + nocturia Physical Exam Constitutional: well developed and well nourished; no acute distress Eyes: PERRL, conjunctivae normal, anicteric sclerae ENMT: external ear and nose normal, oropharynx normal Neck: trachea midline, no thyromegaly Respiratory: normal respiratory effort, lungs clear to auscultation Cardiovascular: RRR, no murmur, no edema Gastrointestinal (Abdomen): normal bowel sounds, soft, nontender, no hepatosplenomegaly Musculoskeletal: no cyanosis or clubbing, extremities motor strength 5/5 Skin: no rashes, warm and dry Neurologic: moves all extremities and awake; no focal motor deficits and not confused Psychiatric: A+Ox3, euthymic affect Results & Data Results & Data ([facility]) Vital Signs (Past 12 Hours) Vital Signs Temp Pulse Pulse Resp BP BP Pulse Ox 02/07/20 13:32 72 18 159/87 H 98 02/07/20 13:17 78 20 159/87 H 98 02/07/20 13:15 74 17 02/07/20 13:00 71 14 159/87 H 02/07/20 12:54 74 02/07/20 12:52 158/94 H 02/07/20 10:44 36.6 C 69 20 145/89 H 99 02/07/20 10:31 69 20 99 02/07/20 10:30 72 20 145/89 H 97 02/07/20 10:19 77 18 134/88 100 02/07/20 10:15 85 19 100 02/07/20 10:01 92 H 18 100 02/07/20 10:00 93 H 19 158/97 H 100 02/07/20 09:59 100 H 17 100 02/07/20 09:56 36.6 C 90 12 172/101 H 100 Diagnostic Findings SINGLE VIEW CHEST IMPRESSION: No active disease in the chest. Medications Administered ER medications given: Aspirin 324 mg p.o. Nitroglycerin 0.4 mg SL IV heparin bolus and drip ECG Indication: chest pain Rate (beats per minute): 74 Findings: + ST elevation (Anterior) Comparison ECG Date: no prior available Code Status & VTE Plan Code Status Full VTE Prophylaxis Plan VTE Prophylaxis will be ordered: Yes PG Care Time/CCT Total # of Minutes Spent Total Time Spent with Patient: Total time spent is greater than 50% in coordination of care (as documented) at patient's floor/unit and/or counseling patient: Coding Level of Care Code 10158 Initial Inpt Care Lvl [address] elevation (STEMI) myocardial infarction I21.3 Involved coronary artery: unspecified coronary artery Hypothyroidism E03.9 BPH associated with nocturia N40.1; R35.1 (1) ST elevation (STEMI) myocardial infarction Involved coronary artery: unspecified coronary artery Qualified Code(s): I21.3 - ST elevation (STEMI) myocardial infarction of unspecified site
--- NOTE | 2020-02-07 14:13 | XRay Report ---
SINGLE VIEW CHEST CLINICAL HISTORY: Atypical chest pain. FINDINGS: An AP, portable, upright chest radiograph is compared to study dated 10/13/2015. The heart i s top normal for projection. The mediastinal contour is within normal limits. The lungs and pleural s paces are clear. No pneumothorax is seen. The bony thorax is grossly intact. IMPRESSION: No active disease in the chest. ACT 112: Negative or not required by law. Electronically signed by: Aneesh Ivey M.D. 02/07/2020 2:12 PM
--- NOTE | 2020-02-07 15:56 | Critical Care Consultation ---
Date of Consultation February 07, 2020 Assessment & Plan (1) Acute [place]: Continue usual post PCI care. Continue ICU monitoring today. He was loaded with Brilinta in the Water [facility]. Continue dual antiplatelet therapy as per cardiology recommendation. Will trend troponins. Echocardiogram later this afternoon was ordered by cardiology to rule out pericardial effusion. Cardiology recommends holding off on beta-blockers and ALTAGRACIA inhibitors initially. Continue high-dose statin. Likely transfer out of the ICU tomorrow. (2) Chest pain: (3) Hypertension: History of Present Illness Reason for Consultation: ICU monitoring status post cardiac catheterization and stenting Requesting Physician: Dr. Ronal Raman Attending Physician: Ronal Raman MD History of Present Illness 59-year-old male with a past medical history of BPH, this metabolic syndrome and hypertension who presented to the hospital due to chest pain that occurred this morning prior to exercise. He notes that he drank his protein shake and subsequently felt a grabbing sensation in his chest and then weakness in his arms. The pain lasted approximately 15 minutes and then improved. He subsequently had a second bout of pain and then ultimately decided to go to the emergency department. He notes that he had a lot of stress recently in his life as is son is living in his house since August. 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 He was previously a smoker in his early 20s. He denies any illicit drug abuse. He has a strong family history of heart disease including a father that at the age of 59. His sister also has a history of coronary artery disease requiring stenting. He underwent a cardiac catheterization today at 1:04 PM. An anterior STEMI was found with 100% mid LAD occlusion. He had successful PCI in the mid LAD in the late LAD with drug- eluting stents. 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 Limited echocardiogram is ordered. Allergies Allergy/AdvReac Type Severity Reaction Status Date / Time No Known Allergies Allergy Verified 02/07/20 10:14 Home Medications Medication Instructions Recorded Confirmed Type tamsulosin 0.4 mg capsule 0.4 mg PO HS #30 cap 02/18/19 02/07/20 Rx levothyroxine 100 mcg PO QAM 02/07/20 02/07/20 History Patient History Medical History BPH (benign prostatic hyperplasia) Dysmetabolic syndrome X Hypertension Hypothyroidism Surgical History History of bilateral cataract extraction History of colonoscopy History of tooth extraction [place] teeth removed Family History Sister Colonic polyp Mother Hypothyroidism Colorectal cancer Father Cardiac disorder Myocardial infarction Other No family history of adverse response to anesthesia Denies family history of Ovarian cancer Prostate cancer Breast cancer Social History Smoking Status: Former smoker Tobacco Type: Cigarettes Age Started Using Tobacco: 13; Age Quit Using Tobacco: 21; packs per day: 1; Years Smoked: 8; Second Hand Exposure: No; Do You Dip or Chew Tobacco: No; Tobacco Cessation Education Requested by Patient: No Hx Alcohol Use: No Hx Substance Use: No Preferred Language: [place] Communication Ability: Effective Visual Impairment: No Limitations Hearing Ability: Normal Bobbin Painter Required: No Beliefs That Will Affect Care: None marital status: Current Living Situation: Spouse current occupational status: employed 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 Other Information That Helps Us Care for You: No Feels Safe at Home: Yes Safety Concerns: Feels Safe At This Time Childhood Exposure to Second-Hand Smoke: Yes Dental Care, Regularly: Yes Physical Activity Frequency: 5-6 Times per Week Seatbelt Use: always Sunscreen Use: No Assistive Devices: Glasses Review of Systems Review of Systems: All systems reviewed & are unremarkable except as noted in HPI & below Physical Exam Constitutional: WD/WN, vitals as above Eyes: PERRL, conjunctivae normal, anicteric sclerae ENMT: external ear and nose normal, oropharynx normal Neck: normal visual inspection Respiratory: normal respiratory effort, lungs clear to auscultation Cardiovascular: RRR, no murmur, no edema Gastrointestinal (Abdomen): normal bowel sounds, soft, nontender, no hepatosplenomegaly Musculoskeletal: no cyanosis or clubbing, extremities motor strength 5/5 Skin: no rashes, warm and dry Neurologic: PERRL, EOMI, accommodation nl, no face palsy, no dysarthria Psychiatric: A+Ox3, euthymic affect Results & Data Results & Data ([facility]) Vital Signs (Past 12 Hours) Vital Signs Temp Pulse Pulse Resp BP BP Pulse Ox 02/07/20 14:02 74 18 139/102 H 68 L 02/07/20 14:00 78 16 139/102 H 96 02/07/20 13:46 71 24 146/98 H 100 02/07/20 13:45 70 17 99 02/07/20 13:37 68 16 143/87 H 96 02/07/20 13:32 72 18 159/87 H 98 02/07/20 13:30 70 15 02/07/20 13:17 78 20 159/87 H 98 02/07/20 13:15 74 17 02/07/20 13:00 71 14 159/87 H 02/07/20 12:54 74 02/07/20 12:52 158/94 H 02/07/20 10:44 97.9 F 69 20 145/89 H 99 02/07/20 10:31 69 20 99 02/07/20 10:30 72 20 145/89 H 97 02/07/20 10:19 77 18 134/88 100 02/07/20 10:15 85 19 100 02/07/20 10:01 92 H 18 100 02/07/20 10:00 93 H 19 158/97 H 100 02/07/20 09:59 100 H 17 100 02/07/20 09:56 97.9 F 90 12 172/101 H 100 reviewed vital signs, labs and imaging Coding Level of Care Code 45640 Inpt Consult Level 4 Diagnoses Acute [place] I21.9 Chest pain R07.9 Chest pain type: unspecified Hypertension I10 (1) Chest pain Chest pain type: unspecified Qualified Code(s): R07.9 - Chest pain, unspecified
[2020-02-07] MEDS: NITROGLYCERIN SL 0.4 MG/TAB TAB SL PRN ×2 (20:04→21:54)
[2020-02-07] MEDS ORDERED: MELATONIN 3 MG TAB PO PRN (20:08)
[2020-02-07] MEDS: TAMSULOSIN HCL 0.4 MG CAP PO SCH (20:20)
[2020-02-07] MEDS: TICAGRELOR 90 MG TAB PO SCH (21:54)
[2020-02-08 04:33] LABS: Basophils # (auto) 0.03 K/uL (0-0.2); Basophils % (auto) 0.4 %; Eosinophils # (auto) 0.17 K/uL (0-0.5); Hematocrit (blood only) 43.2 % (42-52); Hemoglobin 15.3 g/dL (14.0-18.0); Immature Granulocytes # (auto) 0.06 K/uL (0.00-0.02); Immature Granulocytes % (auto) 0.7 %; Lymphocytes # (auto) 0.88 K/uL (1.2-3.4); Lymphocytes % (auto) 10.5 %; Mean Corpuscular Hemoglobin 31.7 pg (25-34); Mean Corpuscular Hgb Conc 35.4 g/dL (32-36); Mean Corpuscular Volume 89.6 fL (80-100); Mean Platelet Volume 10.9 fL (7.4-10.4); Monocytes # (auto) 1.17 K/uL (0.11-0.59); Neutrophils # (auto) 6.04 K/uL (1.4-6.5); Neutrophils % (auto) 72.4 %; Platelet Count 199 K/uL (130-400); RDW Coefficient of Variation 12.8 % (11.5-14.5); RDW Standard Deviation 41.9 fL (36.4-46.3); Red Blood Count 4.82 M/uL (4.7-6.1); White Blood Count 8.35 K/uL (4.8-10.8)
[2020-02-08 04:55] LABS: Magnesium 2.2 mg/dl (1.8-2.4)
[2020-02-08] MEDS: LEVOTHYROXINE SODIUM 100 MCG TABLET PO SCH (05:15)
--- NOTE | 2020-02-08 07:25 | Hospitalist Progress Note ---
Date of Service February 08, 2020 Assessment & Plan (1) ST elevation (STEMI) myocardial infarction: Patient is a 59 year old male with PMHx BPH and hypothyroidism that presented initially on the morning of 02/07/20 with substernal chest pain while drinking a protein shake in his kitchen prior to exercise. Patient was evaluated in the ED and had an EKG concerning for anterior infarction, a heart alert called, and underwent PCI with placement of 2 stents in patients LAD. Subsequently transferred to the ICU for observation with downgrade to Telemetry unit. ACS/STEMI -s/p PCI and x2 MIKE to LAD -Loaded with Brilinta post cath -Continue dual antiplatelet therapy with ASA 81mg QD and Brilinta 90mg BID -Continue Atorvastatin 80mg QD -Metoprolol and Lisinopril initially held due to concerns for pericardial effusion -Echo this AM without pericardial effusion -Start Metoprolol 25mg BID and Lisinopril 2.5mg QD BPH -Continue home Flomax Hypothyroidism -Continue home Levothyroxine 100mcg QD Dispo: Downgrade to Med/Tele today FEN: HH diet DVT: Ambulation Code: Fll (2) Chest pain: (3) Acute [place]: (4) BPH associated with nocturia: (5) Hypothyroidism: Admission and Anticipated Discharge Date Admission Date: February 07, 2020 Supervising Physician Co-Signing Physician Notes Resident Physician Supervision Note: I independently interviewed and examined the patient and verified the christy history and physical, reviewed labs and image studies, discussed the case with the resident Dr. Dubois and agree with the findings and care plan. Subjective Patient evaluated at the bedside this AM. Patient noted that post cath overnight he had slight chest discomfort that resolved with nitro. States that since then he has not had any recurrence of chest pain, pressure, or burning. Denies any SOB, rapid heart beats, abdominal pain, fever, chills, dizziness. Otherwise feels well as though he could "ride my bike everywhere." No other concerns at this time. Review of Systems Review of Systems: All systems reviewed & are unremarkable except as noted in Subjective Physical Exam Constitutional: WD/WN, vitals as above Eyes: PERRL, conjunctivae normal, anicteric sclerae Respiratory: normal respiratory effort, lungs clear to auscultation Cardiovascular: RRR, no murmur, no edema Vessels: posterior tibial pulses present, dorsalis pedis pulses present, radial pulses present and ulnar pulses present Extremities: no edema Gastrointestinal (Abdomen): normal bowel sounds, soft, nontender, no hepatosplenomegaly Musculoskeletal: no cyanosis or clubbing, extremities motor strength 5/5 Skin: no rashes, warm and dry Psychiatric: A+Ox3, euthymic affect Results & Data Results & Data ([facility]) Vital Signs (Past 12 Hours) Vital Signs Temp Pulse Resp BP Pulse Ox 02/08/20 06:30 58 L 15 95 02/08/20 06:00 55 L 14 123/64 96 02/08/20 05:30 59 L 14 95 02/08/20 05:00 56 L 12 146/86 H 96 02/08/20 04:30 66 18 95 02/08/20 04:00 37.1 C 55 L 17 145/82 H 94 02/08/20 03:30 60 16 94 02/08/20 03:00 59 L 16 132/70 95 02/08/20 02:30 60 12 95 02/08/20 02:00 55 L 12 136/82 96 02/08/20 01:30 61 14 96 02/08/20 01:00 59 L 12 134/88 94 02/08/20 00:30 60 12 93 02/08/20 00:00 36.7 C 60 14 145/88 H 96 02/07/20 23:30 57 L 12 96 02/07/20 23:00 59 L 18 138/83 98 02/07/20 22:30 57 L 14 93 02/07/20 22:00 61 17 151/81 H 95 02/07/20 21:30 61 19 97 02/07/20 21:00 65 19 145/92 H 95 02/07/20 20:30 83 20 96 02/07/20 20:06 36.6 C 76 23 144/81 H 96 02/07/20 19:30 67 19 96 Resident Activity Tracking Resident Involvement: Resident Care Provided Care Provided: Adult Hospital Medicine (1) ST elevation (STEMI) myocardial infarction Involved coronary artery: unspecified coronary artery Qualified Code(s): I21.3 - ST elevation (STEMI) myocardial infarction of unspecified site (2) Chest pain Chest pain type: unspecified Qualified Code(s): R07.9 - Chest pain, unspecified
[2020-02-08] MEDS: ASPIRIN 81 MG ECTAB PO SCH (07:47)
[2020-02-08] MEDS: ATORVASTATIN 40 MG TAB PO SCH (07:47)
[2020-02-08] MEDS: TICAGRELOR 90 MG TAB PO SCH ×2 (07:47→21:51)
--- NOTE | 2020-02-08 08:21 | XCELERA ---
[id number] \\[id number]\PDF_[id number]}___[id number]
--- NOTE | 2020-02-08 08:23 | XCELERA ---
[id number] \\[id number]}___[id number]
[2020-02-08 09:17] LABS: BUN Creatinine Ratio 14.1 (10-20); Calcium 9.2 mg/dl (8.5-10.1); Creatinine Clr Calc Pharmacy 90.1 ml/min; Est GFR (Non-African American) 77.7; Magnesium 2.3 mg/dl (1.8-2.4); Potassium 3.9 mmol/L (3.5-5.1)
[2020-02-08] MEDS: METOPROLOL TARTRATE 25 MG TAB PO SCH ×2 (09:17→21:50)
[2020-02-08] MEDS: lisinopril 2.5 MG TAB PO SCH (09:17)
[2020-02-08 09:26] LABS: Phosphorus 2.5 mg/dl (2.5-4.9); Troponin I 26.2 ng/ml (0-0.045)
--- NOTE | 2020-02-08 10:40 | XCELERA ---
[id number] \\[id number]}___[id number]
--- NOTE | 2020-02-08 10:49 | Cardiology Progress Note ---
Date of Service February 08, 2020 Assessment & Plan (1) ST elevation (STEMI) myocardial infarction: Patient did have some residual symptoms subsequent to his percutaneous intervention. This is possibly related to a jailed diagonal. In any event, his symptoms appear to have resolved entirely. No recurrent ischemic symptoms. One episode of very brief nonsustained VT which occurred early after his intervention. No additional arrhythmias. No evidence of heart failure or significant mechanical complication. I ordered him metoprolol and lisinopril this morning. Will continue dual anti- platelet therapy with aspirin and Brilinta. We will continue high-dose atorvastatin. Echocardiography reveals relatively preserved LV systolic function with presumed stunned myocardium. I think he could be transferred to the regular telemetry gupta with an anticipated discharge tomorrow. Plan for referral to cardiac rehab. (2) Coronary arterio-cameral fistula: Unclear if this is represented by a mild Doppler signal on echocardiography. However, not currently of clinical significance. It is likely that this will never be of any clinical significance. No hemodynamic instability or symptoms. It is possible this will simply resolve on its own. Periodic imaging of the ventricular chambers and monitoring for symptoms can be performed in the outpatient setting. (3) Aortic root dilation: Noted on echocardiography today. Patient will be receiving periodic echocardiography and this can be monitored over time. Will continue beta- blockade in good blood pressure management. Admission and Anticipated Discharge Date Admission Date: February 07, 2020 Subjective This morning patient claims to be feeling well. He did report some mild residual burning discomfort in the precordial area subsequent to his intervention yesterday. He was administered some sublingual nitroglycerin over the course of several hours with eventual resolution of his symptoms. He has been ambulatory around the room this morning without any recurrent symptoms. He denies dizziness or lightheadedness. No sense of palpitation. No chest discomfort of any sort. No breathing difficulty. Review of Systems Review of Systems: Per HPI. Physical Exam Physical Exam: The patient is alert and oriented. Mood and affect appeared normal. He answered all questions appropriately. HEENT: Pupils are equal and reactive to light and accommodation. Extraocular movements are intact. The sclerae are anicteric. Neuro: Cranial nerves intact Neck: Patient's neck is supple. He has palpable carotid pulses bilaterally without bruits on auscultation. There is no evidence of jugular venous distention. The thyroid is not enlarged. Lungs: Clear to auscultation bilaterally. He has good air movement without use of accessory muscles. No rales wheezes or rhonchi. Cardiac: Heart demonstrates a regular rate and rhythm. Normal S1 and S2. Soft systolic murmur. Pulses: The patient has palpable radial pulses bilaterally that are equal in intensity. Radial access site in the right wrist without significant ecchymosis. Good perfusion of the right hand Extremities: There was no evidence of hypoperfusion. There is no cyanosis or clubbing. There is no edema. Skin: I did not appreciate any rashes on examination today. Results & Data ([facility]) Vital Signs (Past 12 Hours) Vital Signs Temp Pulse Resp BP Pulse Ox 02/08/20 08:00 58 L 02/08/20 06:30 58 L 15 95 02/08/20 06:00 55 L 14 123/64 96 02/08/20 05:30 59 L 14 95 02/08/20 05:00 56 L 12 146/86 H 96 02/08/20 04:30 66 18 95 02/08/20 04:00 37.1 C 55 L 17 145/82 H 94 02/08/20 03:30 60 16 94 02/08/20 03:00 59 L 16 132/70 95 02/08/20 02:30 60 12 95 02/08/20 02:00 55 L 12 136/82 96 02/08/20 01:30 61 14 96 02/08/20 01:00 59 L 12 134/88 94 02/08/20 00:30 60 12 93 02/08/20 00:00 36.7 C 60 14 145/88 H 96 02/07/20 23:30 57 L 12 96 02/07/20 23:00 59 L 18 138/83 98 Laboratory Results Abnormal Lab Results 02/07/20 02/07/20 02/07/20 10:05 10:05 10:10 WBC RBC Hgb Hct MCV MCH MCHC RDW Std Deviation RDW Coeff of Gary Plt Count MPV Immature Gran % (Auto) Neut % (Auto) Lymph % (Auto) [place] % (Auto) Eos % (Auto) Baso % (Auto) Neut # (Auto) Lymph # (Auto) [place] # (Auto) Eos # (Auto) Baso # (Auto) Immature Gran # (Auto) PT 11.4 INR 1.1 APTT 24.3 PTT Ratio 0.9 Sodium 140 Potassium 3.3 L Chloride 107 Carbon Dioxide 26 Anion Gap 7.0 BUN 19 H Creatinine 1.07 Est Cr Clr Drug Dosing 87.5 Est GFR ( Amer) 87.0 Est GFR (Non-Af Amer) 75.1 BUN/Creatinine Ratio 17.5 Glucose 139 H POC Glucose Calcium 9.1 Phosphorus Magnesium Total Bilirubin 0.9 AST 29 ALT 43 Alkaline Phosphatase 84 Troponin I 0.036 Total Protein 7.6 Albumin 4.3 Globulin 3.3 Albumin/Globulin Ratio 1.3 Triglycerides Cholesterol LDL Cholesterol, Calc VLDL Cholesterol, Calc HDL Cholesterol Cholesterol/HDL Ratio Lipase 122 Specimen Hemolysis Nasal Screen MRSA (PCR) SARS-CoV-2, RNA, NAAT NEGATIVE 02/07/20 02/07/20 02/07/20 13:00 18:54 20:23 WBC RBC Hgb Hct MCV MCH MCHC RDW Std Deviation RDW Coeff of Gary Plt Count MPV Immature Gran % (Auto) Neut % (Auto) Lymph % (Auto) [place] % (Auto) Eos % (Auto) Baso % (Auto) Neut # (Auto) Lymph # (Auto) [place] # (Auto) Eos # (Auto) Baso # (Auto) Immature Gran # (Auto) PT INR APTT PTT Ratio Sodium Potassium Chloride Carbon Dioxide Anion Gap BUN Creatinine Est Cr Clr Drug Dosing Est GFR ( Amer) Est GFR (Non-Af Amer) BUN/Creatinine Ratio Glucose POC Glucose 115 H Calcium Phosphorus Magnesium Total Bilirubin AST ALT Alkaline Phosphatase Troponin I 57.000 H* Total Protein Albumin Globulin Albumin/Globulin Ratio Triglycerides Cholesterol LDL Cholesterol, Calc VLDL Cholesterol, Calc HDL Cholesterol Cholesterol/HDL Ratio Lipase Specimen Hemolysis Nasal Screen MRSA (PCR) Negative SARS-CoV-2, RNA, NAAT 02/08/20 02/08/20 02/08/20 00:13 04:20 04:20 WBC 8.35 RBC 4.82 Hgb 15.3 Hct 43.2 MCV 89.6 MCH 31.7 MCHC 35.4 RDW Std Deviation 41.9 RDW Coeff of Gary 12.8 Plt Count 199 MPV 10.9 H Immature Gran % (Auto) 0.7 Neut % (Auto) 72.4 Lymph % (Auto) 10.5 Rosebud % (Auto) 14.0 Eos % (Auto) 2.0 Baso % (Auto) 0.4 Neut # (Auto) 6.04 Lymph # (Auto) 0.88 L [place] # (Auto) 1.17 H Eos # (Auto) 0.17 Baso # (Auto) 0.03 Immature Gran # (Auto) 0.06 H PT INR APTT PTT Ratio Sodium Potassium Chloride Carbon Dioxide Anion Gap BUN Creatinine Est Cr Clr Drug Dosing Est GFR ( Amer) Est GFR (Non-Af Amer) BUN/Creatinine Ratio Glucose POC Glucose Calcium Phosphorus Magnesium 2.2 Total Bilirubin AST ALT Alkaline Phosphatase Troponin I 59.300 H* Total Protein Albumin Globulin Albumin/Globulin Ratio Triglycerides 76 Cholesterol 170 LDL Cholesterol, Calc 101 VLDL Cholesterol, Calc 15 HDL Cholesterol 54 Cholesterol/HDL Ratio 3 Lipase Specimen Hemolysis Nasal Screen MRSA (PCR) SARS-CoV-2, RNA, NAAT 02/08/20 02/08/20 05:17 08:33 WBC RBC Hgb Hct MCV MCH MCHC RDW Std Deviation RDW Coeff of Gary Plt Count MPV Immature Gran % (Auto) Neut % (Auto) Lymph % (Auto) [place] % (Auto) Eos % (Auto) Baso % (Auto) Neut # (Auto) Lymph # (Auto) [place] # (Auto) Eos # (Auto) Baso # (Auto) Immature Gran # (Auto) PT INR APTT PTT Ratio Sodium 141 Potassium 3.9 D Chloride 108 H Carbon Dioxide 27 Anion Gap 6.0 BUN 15 Creatinine 1.04 Est Cr Clr Drug Dosing 90.1 Est GFR ( Amer) 90.0 Est GFR (Non-Af Amer) 77.7 BUN/Creatinine Ratio 14.1 Glucose 91 POC Glucose 115 H Calcium 9.2 Phosphorus 2.5 Magnesium 2.3 Total Bilirubin AST ALT Alkaline Phosphatase Troponin I 26.200 H* Total Protein Albumin Globulin Albumin/Globulin Ratio Triglycerides Cholesterol LDL Cholesterol, Calc VLDL Cholesterol, Calc HDL Cholesterol Cholesterol/HDL Ratio Lipase Specimen Hemolysis Nasal Screen MRSA (PCR) SARS-CoV-2, RNA, NAAT Diagnostic Findings Chest x-ray obtained at the time of admission did not reveal any acute cardiopulmonary disease Coronary angiography revealed 100% occlusion of the mid LAD. Patient had right dominant circulation with only mild nonobstructive disease in the left circumflex. Patient underwent percutaneous intervention to the mid and distal LAD. The did appear to be development of a coronary cameral fistula in the very distal LAD and right ventricular septum. Echocardiogram obtained today revealed generally preserved overall LV systolic function with regional wall motion abnormalities consistent with his known LAD occlusion. Normal right ventricular function. No pericardial effusion. Sclerotic looking aortic valve with thickening of the right coronary cusp. Mild left atrial dilation and mild aortic root dilation. 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
--- NOTE | 2020-02-08 13:06 | Electrocardiogram Report ---
Test Reason : Blood Pressure : / mmHG Vent. Rate : 087 BPM Atrial Rate : 087 BPM P-R Int : 174 ms QRS Dur : 098 ms QT Int : 382 ms P-R-T Axes : 070 075 -19 degrees QTc Int : 459 ms Normal sinus rhythm Anterior infarct (cited on or before 07-FEB-2020) ACUTE [place] / STEMI Abnormal ECG When compared with ECG of 07-FEB-2020 09:57, (unconfirmed) Premature supraventricular complexes are no longer Present Serial changes of Anterior infarct Present Confirmed by Ronal Key ([id number]) on 02/08/2020 1:06:18 PM Referred By: REFERRED SELF Confirmed By:Akhil Key
--- NOTE | 2020-02-08 13:16 | Electrocardiogram Report ---
Test Reason : Blood Pressure : / mmHG Vent. Rate : 074 BPM Atrial Rate : 074 BPM P-R Int : 168 ms QRS Dur : 100 ms QT Int : 394 ms P-R-T Axes : 074 076 -04 degrees QTc Int : 437 ms Sinus rhythm with Premature supraventricular complexes Anterior infarct , possibly acute ACUTE [place] / STEMI Abnormal ECG No previous ECGs available Confirmed by Ronal Key ([id number]) on 02/08/2020 1:15:39 PM Referred By: REFERRED SELF Confirmed By:Akhil Key
[2020-02-08] MEDS: TAMSULOSIN HCL 0.4 MG CAP PO SCH (21:52)
[2020-02-09] MEDS: LEVOTHYROXINE SODIUM 100 MCG TABLET PO SCH (06:15)
[2020-02-09 06:27] LABS: Basophils # (auto) 0.03 K/uL (0-0.2); Basophils % (auto) 0.5 %; Eosinophils # (auto) 0.24 K/uL (0-0.5); Eosinophils % (auto) 3.9 %; Hematocrit (blood only) 43.9 % (42-52); Immature Granulocytes # (auto) 0.07 K/uL (0.00-0.02); Immature Granulocytes % (auto) 1.1 %; Lymphocytes # (auto) 1.11 K/uL (1.2-3.4); Lymphocytes % (auto) 17.8 %; Mean Corpuscular Hemoglobin 31.1 pg (25-34); Mean Corpuscular Hgb Conc 34.2 g/dL (32-36); Mean Corpuscular Volume 91.1 fL (80-100); Mean Platelet Volume 10.7 fL (7.4-10.4); Monocytes # (auto) 1.03 K/uL (0.11-0.59); Monocytes % (auto) 16.5 %; Neutrophils # (auto) 3.75 K/uL (1.4-6.5); Neutrophils % (auto) 60.2 %; Platelet Count 193 K/uL (130-400); RDW Coefficient of Variation 12.9 % (11.5-14.5); RDW Standard Deviation 42.8 fL (36.4-46.3); Red Blood Count 4.82 M/uL (4.7-6.1); White Blood Count 6.23 K/uL (4.8-10.8)
[2020-02-09 06:54] LABS: Creatinine Clr Calc Pharmacy 85.2 ml/min; Est GFR (African American) 84.1; Est GFR (Non-African American) 72.6; Potassium 4.1 mmol/L (3.5-5.1)
[2020-02-09] MEDS: ASPIRIN 81 MG ECTAB PO SCH (07:17)
[2020-02-09] MEDS: lisinopril 2.5 MG TAB PO SCH (07:17)
[2020-02-09] MEDS: METOPROLOL TARTRATE 25 MG TAB PO SCH (07:18)
[2020-02-09] MEDS: TICAGRELOR 90 MG TAB PO SCH (07:18)
[2020-02-09 07:34] LABS: Estimated Average Glucose 108 mg/dl; Hemoglobin A1C 5.4 % (4.5-5.6)
[2020-02-09] MEDS: ATORVASTATIN 40 MG TAB PO SCH (08:25)
[2020-02-09] MEDS ORDERED: METOPROLOL SUCC 25MG EXT REL TAB PO SCH (09:00)
--- NOTE | 2020-02-09 10:02 | Cardiology Progress Note ---
Date of Service February 09, 2020 Assessment & Plan (1) ST elevation (STEMI) myocardial infarction: no recurrent symptoms. Doing well. No arrhythmias noted on telemetry. No evidence of congestive heart failure. he seems to be tolerating his medications well. Think it would be ready for discharge today. I would suggest discharging him on: metoprolol succinate 25 mg daily lisinopril 2.5 mg daily atorvastatin 80 mg daily aspirin 81 mg daily Ticagrelor 90 mg twice daily I will place a referral for cardiac rehab. He should refrain from using the right hand or wrist in a vigorous fashion for 4 more days. (2) Coronary arterio-cameral fistula: Perhaps a very small signal on his echocardiogram performed yesterday consistent with what is believed to be a coronary cameral fistula. However, no symptoms. No murmur on examination. We will monitor this in the outpatient setting. (3) Aortic root dilation: This can be followed in the outpatient setting. Continue good blood pressure control and beta-blockers. Admission and Anticipated Discharge Date Admission Date: February 07, 2020 Subjective This morning the patient claims to be feeling well. He reported walking around the gupta without any recurrent symptoms. No dyspnea. No chest discomfort. No dizziness or lightheadedness. In fact, he stated that "he is feeling more energetic" than he did before he came into the hospital. Review of Systems Review of Systems: Per HPI Physical Exam Physical Exam: The patient is alert and oriented. Mood and affect appeared normal. He answered all questions appropriately. HEENT: Pupils are equal and reactive to light and accommodation. Extraocular movements are intact. The sclerae are anicteric. Neuro: Cranial nerves intact Lungs: Clear to auscultation bilaterally. He has good air movement without use of accessory muscles. No rales wheezes or rhonchi. Cardiac: Heart demonstrates a regular rate and rhythm. Normal S1 and S2. Soft systolic murmur. Pulses: The patient has palpable radial pulses bilaterally that are equal in intensity. Radial access site in the right wrist without significant ecchymosis. Good perfusion of the right hand Extremities: There was no evidence of hypoperfusion. There is no cyanosis or clubbing. There is no edema. Skin: I did not appreciate any rashes on examination today. Results & Data ([facility]) Vital Signs (Past 12 Hours) Vital Signs Temp Pulse Pulse Resp BP Pulse Ox 02/09/20 07:28 36.9 C 73 16 106/61 99 02/09/20 04:00 36.8 C 63 20 113/56 L 94 02/09/20 00:00 59 L 02/08/20 23:00 36.7 C 56 L 20 119/76 97 Laboratory Results Abnormal Lab Results 02/08/20 02/08/20 02/08/20 04:20 10:59 16:52 WBC RBC Hgb Hct MCV MCH MCHC RDW Std Deviation RDW Coeff of Gary Plt Count MPV Immature Gran % (Auto) Neut % (Auto) Lymph % (Auto) [place] % (Auto) Eos % (Auto) Baso % (Auto) Neut # (Auto) Lymph # (Auto) [place] # (Auto) Eos # (Auto) Baso # (Auto) Immature Gran # (Auto) Sodium Potassium Chloride Carbon Dioxide Anion Gap BUN Creatinine Est Cr Clr Drug Dosing Est GFR ( Amer) Est GFR (Non-Af Amer) BUN/Creatinine Ratio Glucose POC Glucose 101 H 93 Estimat Average Glucose 108 Hemoglobin A1c 5.4 Calcium 02/08/20 02/09/20 02/09/20 20:15 05:59 05:59 WBC 6.23 RBC 4.82 Hgb 15.0 Hct 43.9 MCV 91.1 MCH 31.1 MCHC 34.2 RDW Std Deviation 42.8 RDW Coeff of Gary 12.9 Plt Count 193 MPV 10.7 H Immature Gran % (Auto) 1.1 Neut % (Auto) 60.2 Lymph % (Auto) 17.8 [place] % (Auto) 16.5 Eos % (Auto) 3.9 Baso % (Auto) 0.5 Neut # (Auto) 3.75 Lymph # (Auto) 1.11 L [place] # (Auto) 1.03 H Eos # (Auto) 0.24 Baso # (Auto) 0.03 Immature Gran # (Auto) 0.07 H Sodium 139 Potassium 4.1 Chloride 107 Carbon Dioxide 29 Anion Gap 3.0 BUN 18 Creatinine 1.10 Est Cr Clr Drug Dosing 85.2 Est GFR ( Amer) 84.1 Est GFR (Non-Af Amer) 72.6 BUN/Creatinine Ratio 16.0 Glucose 98 POC Glucose 111 H Estimat Average Glucose Hemoglobin A1c Calcium 9.0 02/09/20 07:51 WBC RBC Hgb Hct MCV MCH MCHC RDW Std Deviation RDW Coeff of Gary Plt Count MPV Immature Gran % (Auto) Neut % (Auto) Lymph % (Auto) [place] % (Auto) Eos % (Auto) Baso % (Auto) Neut # (Auto) Lymph # (Auto) [place] # (Auto) Eos # (Auto) Baso # (Auto) Immature Gran # (Auto) Sodium Potassium Chloride Carbon Dioxide Anion Gap BUN Creatinine Est Cr Clr Drug Dosing Est GFR ( Amer) Est GFR (Non-Af Amer) BUN/Creatinine Ratio Glucose POC Glucose 101 H Estimat Average Glucose Hemoglobin A1c Calcium PG Care Time/CCT Total # of Minutes Spent Total Time Spent with Patient: Total time spent is greater than 50% in coordination of care (as documented) at patient's floor/unit and/or counseling patient: Coding Level of Care Code 00893 Subseq Hosp Care Lvl [address] elevation (STEMI) myocardial infarction I21.3 Involved coronary artery: unspecified coronary artery 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
--- NOTE | 2020-02-09 10:27 | Discharge Summary ---
Date of Service February 09, 2020 Admission HPI Per Admitting Provider Armando Castaneda is a 59 year old male who presents to the ER as a heart alert due to chest pain with ST elevation in anterior leads. Chest pain was substernal with radiation down both arms, sudden onset, severity 6/10, occurred at 830 this morning after drinking a protein shake, currently chest pain-free post cardiac catheterization. Significant family history of his father having an PR in 59 and dying the ER after this from complications. He was taken emergently to the [facility]. Discussed with Dr. Raman post cardiac catheterization The patient was seen after cardiac catheterization. He was given aspirin, h eparin and nitroglycerin in the ED. PCI with x2 MIKE to LAD, some concern for possible perforation/coronary-cameral fistula and patient will be monitored with serial echocardiograms to assess for pericardial effusion. Admission Exam Per Admitting Provider Armando Castaneda is a 59 year old male who presents to the ER as a heart alert due to chest pain with ST elevation in anterior leads. Chest pain was substernal with radiation down both arms, sudden onset, severity 6/10, occurred at 830 this morning after drinking a protein shake, currently chest pain-free post cardiac catheterization. Significant family history of his father having an PR in 59 and dying the ER after this from complications. He was taken emergently to the [facility]. Discussed with Dr. Raman post cardiac catheterization The patient was seen after cardiac catheterization. He was given aspirin, heparin and nitroglycerin in the ED. PCI with x2 MIKE to LAD, some concern for possible perforation/coronary-cameral fistula and patient will be monitored with serial echocardiograms to assess for pericardial effusion. Principal Diagnosis STEMI s/p PCI X2 LAD BPH Hypothyroidism Discharge Exam Constitutional well developed and well nourished; no acute distress Eyes PERRL, conjunctivae normal, anicteric sclerae ENMT external ear and nose normal, oropharynx normal Neck normal visual inspection Respiratory normal respiratory effort, lungs clear to auscultation Cardiovascular RRR, no murmur, no edema no JVD, no bruit Chest (Breasts) normal inspection/palpation of breasts Gastrointestinal (Abdomen) normal bowel sounds, soft, nontender, no hepatosplenomegaly Skin no rashes, warm and dry Discharge Data Allergies Allergy/AdvReac Type Severity Reaction Status Date / Time No Known Allergies Allergy Verified 02/07/20 10:14 Consultations 02/07/20 10:39 ED Decision to Admit Stat 02/07/20 12:45 Consult Cardiac Rehabilitation Routine 02/07/20 12:51 Consult Case Management - Discharge Planning Routine Consult [facility] Routine Procedures Performed Operation Date: 02/07/20 10:25 Actual Procedures s Cineradiography w/Routine Exam - Duc Raman MD p Aspiration/PCI w/MIKE for Stemi - Duc Raman MD Ordered Studies 02/07/20 10:25 CL Cath Imgs for PACS use only Stat Hospital Course (1) ST elevation (STEMI) myocardial infarction: Patient is a 59 year old male with PMHx BPH and hypothyroidism that presented initially on the morning of 02/07/20 with substernal chest pain while drinking a protein shake in his kitchen prior to exercise. Patient was evaluated in the ED and had an EKG concerning for anterior infarction, a heart alert called, and underwent PCI with placement of 2 stents in patients LAD. Subsequently observed and discharged day after procedure. ACS/STEMI -s/p PCI and x2 MIKE to LAD -Loaded with Brilinta post cath -Continue dual antiplatelet therapy with ASA 81mg QD and Brilinta 90mg BID -Continue Atorvastatin 80mg QD -Metoprolol and Lisinopril initially held due to concerns for pericardial effusion -Echo this AM without pericardial effusion -Started Metoprolol 25mg BID and Lisinopril 2.5mg QD BPH -Continue home Flomax Hypothyroidism -Continue home Levothyroxine 100mcg QD Total Time Total Time Spent Total Time Spent (In Minutes): per attending attestation Discharge Plan Discharge Items Patient Disposition: Home - Self-Care Reason For Visit: STEMI Discharge Diagnosis: STEMI Activity: Per Instructions section Non-emergency contact: Primary Care Provider and Acls Nurse Call non-emergency contact if: you have any medication questions Follow-up/Referrals: Abdon Soto III, CRNP [Primary Care Provider] - 02/12/20 9:20 am Duc Raman MD [Physician] - 02/17/20 10:00 am Diet: Heart Healthy Addtl Attending Provider Instructions: Heart attack You came to the hospital for chest pain. You suffered a heart attack. This is when you have blockage of blood vessels that supply your heart. Stents were placed in these vessels to open up the blood vessels supplying your heart. You will need to start several medications to prevent blockage of these vessels and other vessels that supply your heart. You will also need to go to cardiac rehabilitation to build your strength and improve your outcome. You will be started on new medications that are listed, these medications may be adjusted in the future. Follow up You will follow up with cardiology, cardiac rehabilitation, and your primary care doctor. Return precautions If you develop chest pain, fast or irregular heart beat, leg swelling, or shortness of breath or any other concerns your should call or come in to get evaluated. Pending Studies at Discharge: No Stand-Alone Forms: [facility], Smoking Cessation Medications and DC Order Prescriptions: New Brilinta 90 mg tablet 90 mg PO BID Qty: 60 RF: 0 atorvastatin [Lipitor] 80 mg tablet 80 mg PO DAILY Qty: 30 RF: 0 lisinopril 2.5 mg tablet 2.5 mg PO DAILY Qty: 30 RF: 0 metoprolol tartrate 25 mg tablet 12.5 mg PO BID Qty: 30 RF: 0 aspirin [Aspirin Low Dose] 81 mg tablet,delayed release (DR/EC) 81 mg PO DAILY Qty: 30 RF: 0 Continued tamsulosin [Flomax] 0.4 mg capsule 0.4 mg PO HS Qty: 30 RF: 8 levothyroxine 100 mcg tablet 100 mcg PO QAM RF: 0 Discharge Orders: Discharge Order (Routine); Ordered 02/09/20 Ordered By: Juventino Merchant/Other Patient Handouts: Heart Attack Dc, Heart Attack Meds, Heart Attack Questions Admission Data Admit Date/Time: 02/07/20 12:51 Attending Provider: Ya Wiley Admit Provider: Quirino Gould Primary Care Provider: Abdon Soto III Other Providers: Duc Raman ; Quirino Gould ; Thomas Thompson Other Interventions: Discharge Summary Assessment (RN) Last Done: 02/09/20 11:18 Supervising Physician Co-Signing Physician Notes Resident Physician Supervision Note: I independently interviewed and examined the patient and verified the christy history and physical, reviewed labs and image studies, discussed the case with the resident Dr. Jose and agree with the findings and care plan. Resident Activity Tracking Resident Involvement: Resident Care Provided Care Provided: Adult Hospital Medicine CBC Results Results Complete Blood Count Results: RBC 4.82 M/uL (4.7-6.1) 02/09/20 WBC 6.23 K/uL (4.8-10.8) 02/09/20 Hgb 15.0 g/dL (14.0-18.0) 02/09/20 Hct 43.9 % (42-52) 02/09/20 Plt Count 193 K/uL (130-400) 02/09/20 Chemistry (BMP) Results BMP Results: Sodium 139 mmol/L (136-145) 02/09/20 Potassium 4.1 mmol/L (3.5-5.1) 02/09/20 Chloride 107 mmol/L (98-107) 02/09/20 BUN 18 mg/dl (7-18) 02/09/20 Creatinine 1.10 mg/dl (0.6-1.4) 02/09/20 Glucose 98 mg/dl (70-99) 02/09/20
== END 2020-02-09 12:36 | disposition home or self-care (01) | DRG 247 ==
LOC: ED 09:50 → CC 10:46 → 1E 10:47 → SUATTDRO 12:51 → 1E 12:51 → 2N 02-08 14:01

== ENCOUNTER 2024-07-30 11:21 | Observation (INO) ==
[2024-07-30 12:52] LABS: Basophils # (auto) 0.02 K/uL (0.00-0.20); Basophils % (auto) 0.4 %; Eosinophils # (auto) 0.05 K/uL (0.00-0.50); Eosinophils % (auto) 1.1 %; Hematocrit (blood only) 40.8 % (42.0-52.0); Hemoglobin 14.4 g/dl (14.0-18.0); Immature Granulocytes # (auto) 0.04 K/uL (0.01-0.20); Immature Granulocytes % (auto) 0.9 %; Lymphocytes # (auto) 0.45 K/uL (1.20-3.40); Lymphocytes % (auto) 9.8 %; Mean Corpuscular Hemoglobin 31.7 pg (25.0-34.0); Mean Corpuscular Hgb Conc 35.3 g/dL (32.0-36.0); Mean Corpuscular Volume 89.9 fL (80.0-100.0); Mean Platelet Volume 10.5 fL (9.4-12.4); Monocytes # (auto) 0.79 K/uL (0.11-0.59); Monocytes % (auto) 17.1 %; Neutrophils # (auto) 3.26 K/uL (1.40-6.50); Neutrophils % (auto) 70.7 %; Platelet Count 139 K/uL (130-400); RDW Coefficient of Variation 12.4 % (11.5-14.5); RDW Standard Deviation 41.1 fL (36.4-46.3); Red Blood Count 4.54 M/uL (4.70-6.10); White Blood Count 4.61 K/ul (4.8-10.8)
[2024-07-30 12:59] LABS: Albumin Globulin Ratio 1.5 (0.9-2); BUN Creatinine Ratio 19.4 (10-20); Bilirubin,Total 1.2 mg/dl (0.2-1.0); Calcium 9.3 mg/dl (8.6-10.3); Creatinine Clr Calc Pharmacy 78.6 ml/min; Globulin 2.5 gm/dl (2.5-4.0); Potassium 3.3 mmol/L (3.5-5.1); Total Protein 6.3 gm/dl (6.0-8.3)
--- NOTE | 2024-07-30 13:17 | CT Scan Report ---
CT head/brain wo con CLINICAL HISTORY: 63 years-old Male with dysequilibrium. Acutely altered mental status TECHNIQUE: Multiple axial CT images of the head were obtained without contrast. A dose lowering tech nique was utilized adhering to the principles of ALARA. CT DOSE: 625.8 mGy.cm COMPARISON: None. FINDINGS: No acute intracranial hemorrhage, midline shift, intracranial mass, hydrocephalus, territorial ischem ia or abnormal extra-axial collection. Involutional changes. Mild white matter hypodensities may repr esent chronic microvascular ischemic disease. Cerebral vascular calcifications. The calvarium is intact. The paranasal sinuses, mastoid air cells, and middle ear cavities are clear . IMPRESSION: No acute intracranial abnormality. ACT 112: Negative or not required by law. The above report was generated using voice recognition software. It may contain grammatical, syntax o r spelling errors. Electronically signed by: Venancio Prince M.D. 07/30/2024 1:16 PM
[2024-07-30 13:18] LABS: Troponin I High Sensitivity 236.5 pg/ml (0-20)
--- NOTE | 2024-07-30 13:19 | Emergency Department Note ---
History of Present Illness General Chief complaint: Flu Like Symptoms Stated complaint: SEVERE FATIGUE, DIZZY Time Seen by Provider: 07/30/24 11:48 Source: patient Mode of arrival: ambulatory Limitations: no limitations History of Present Illness Patient is a 63 y.o. M with h/o CAD s/p stent placement, HTN, aortic root dilation, and hypothyroidism who presents with subjective fever, chills, fatigue, and brain fog. Symptoms started last Sunday when he was walking his dogs. He had sudden onset of neck pain followed by subjective fever and chills. He did not take his temperature at the time. Neck pain has since resolved but he feels like he is still "not back to normal". He did take a road trip on Sunday to [place]. No h/o PE or DVT. Does report some head pressure and brain fog since symptoms began. No sick contacts at home. No recent tick exposure or rash. Is any chest pain, shortness of breath, nausea, vomiting, abdominal pain. No drug or alcohol use reported. Home Medications Medication Instructions Recorded Confirmed Type aspirin 81 mg tablet,delayed 81 mg PO QPM 09/06/22 07/30/24 History release (Rowdy Low Dose Aspirin) tamsulosin 0.4 mg capsule (Flomax) 0.4 mg PO HS #90 caps 03/11/24 07/30/24 Rx atorvastatin 80 mg tablet (Lipitor) 80 mg PO QPM #90 tabs 03/20/24 07/30/24 Rx tirzepatide (weight loss) 10 10 mg (0.5 mL) subcut Q7D #2 mL 07/01/24 07/30/24 Rx mg/0.5 mL subcutaneous pen injector creatine monohydrate 5,000 mg oral 5,000 mg PO DAILY 07/30/24 07/30/24 History powder packet levothyroxine 100 mcg tablet 100 mcg PO DAILYBB 07/30/24 07/30/24 History (Euthyrox) lisinopril 10 mg tablet 10 mg PO QPM 07/30/24 07/30/24 History Allergies Allergy/AdvReac Type Severity Reaction Status Date / Time No Known Allergies Allergy Verified 07/30/24 13:55 Past Med/Surg History Problem List (Updated 07/30/24 @ 14:36 by Mic Alfred MD) Acute non-ST elevation myocardial infarction (NSTEMI) (Acute) BPH loc w/o ur obs/LUTS (Chronic) History of ST elevation myocardial infarction (STEMI) (~01/2020) hx 01/2020--had heart cath with 2 stents placed Hypertension (Chronic) Aortic root dilation 4.2cm per 12/2020 ECHO Hypothyroidism (Chronic) Coronary artery disease Anterior STEMI 01/2020 - s/p two nonoverlapping MIKE to mid LAD; minimal nonculprit disease per cardio Dysmetabolic syndrome X (Chronic) Medical History Acute urinary retention Chronic prostatitis History of COVID-19 Coronary arterio-cameral fistula BPH (benign prostatic hyperplasia) Surgical History H/O umbilical hernia repair (01/16/22) H/O right inguinal hernia repair (01/16/22) S/P cardiac catheterization History of colonoscopy History of tooth extraction History of bilateral cataract extraction Flanagan teeth removed History of dental surgery Family History Sister Colonic polyp Mother Hypothyroidism Colorectal cancer Hypertension Father Cardiac disorder Myocardial infarction Other No family history of adverse response to anesthesia Denies family history of Ovarian cancer Prostate cancer Breast cancer Social History Smoking Status: Former smoker Tobacco Type: Cigarettes Age Started Using Tobacco: 13; Age Quit Using Tobacco: 21; packs per day: 1; Second Hand Exposure: No; Do You Dip or Chew Tobacco: No; Hx Alcohol Use: No Hx Substance Use: No Preferred Language: [place] Communication Ability: Effective Visual Impairment: No Limitations Hearing Ability: Normal Fiberglass Grinder Required: No Beliefs That Will Affect Care: None marital status: Current Living Situation: Spouse 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 Physical Exam Vital Signs Vital Signs - 24 hr 07/30/24 11:25 07/30/24 11:41 07/30/24 11:59 Temperature 36.4 C L Temperature Source Skin Pulse Rate 99 H 92 H Pulse Rate [Apical] 90 Pulse Rhythm [Apical] Regular Pulse Strength [Apical] Normal Respiratory Rate 16 12 Respiratory Effort / Characteristics Non-Labored Spontaneous Non-Labored Spontaneous Respiratory Depth Normal Normal Respiratory Pattern Regular Regular Blood Pressure 124/78 Blood Pressure [Right Arm] 115/87 Blood Pressure Mean 93 Blood Pressure Mean [Right Arm] 96 Blood Pressure Position [Right Arm] Lying Pulse Oximetry 98 100 Oxygen Delivery Method Room Air Room Air Sepsis Recent Fever Within 48 Hours No Sepsis New/Unexplained Change in Mental Status N/A Sepsis Action Taken by Nursing No Action Required 07/30/24 13:22 Temperature Temperature Source Pulse Rate Pulse Rate [Apical] 67 Pulse Rhythm [Apical] Regular Pulse Strength [Apical] Normal Respiratory Rate 12 Respiratory Effort / Characteristics Non-Labored Spontaneous Respiratory Depth Normal Respiratory Pattern Regular Blood Pressure Blood Pressure [Right Arm] 122/78 Blood Pressure Mean Blood Pressure Mean [Right Arm] 92 Blood Pressure Position [Right Arm] Lying Pulse Oximetry 98 Oxygen Delivery Method Room Air Sepsis Recent Fever Within 48 Hours Sepsis New/Unexplained Change in Mental Status Sepsis Action Taken by Nursing See below Constitutional WD/WN, vitals as above ENMT external ear and nose normal, oropharynx normal Minimal fluid behind the Respiratory normal respiratory effort, lungs clear to auscultation Cardiovascular RRR, no murmur, no edema Gastrointestinal (Abdomen) normal bowel sounds, soft, nontender, no hepatosplenomegaly Musculoskeletal no cyanosis or clubbing, extremities motor strength 5/5 Skin no rashes, warm and dry Course Administered Medications Heparin Sodium/Dextrose (Heparin 20197 Unit/500 Ml D5w) 25,000 units in 500 mls @ 28 mls/hr IV .[id number] [facility]; Protocol Stop: 08/29/24 13:29 Last Admin: 07/30/24 14:05 Dose: 1,400 units/hr, 28 mls/hr Documented By: THEODORE Co-signed By: FRANCY Discontinued Medications Aspirin (Aspirin Chew 324 Mg) 324 mg PO NOW STA Stop: 07/30/24 13:15 Last Admin: 07/30/24 14:06 Dose: 324 mg Documented By: THEODORE Heparin Sodium (Porcine) (Heparin Sod (Porcine) 1000 Unit/Ml) 1 units IV NOW ONE Stop: 07/30/24 13:31 Last Admin: 07/30/24 14:05 Dose: 6,000 units Documented By: THEODORE Co-signed By: FRANCY Heparin Sodium/Dextrose (Heparin Iv Adult Wt-Based Standard W/ Initial Bolus Protocol) 1 each IV NOW STA; Protocol Stop: 07/30/24 13:15 Last Admin: 07/30/24 14:06 Dose: Not Given Documented By: THEODORE Medical Decision Making Differential Diagnosis NSTEMI, ACS, myocarditis, pericarditis, pneumonia, sinusitis Medical Records Attestation: I reviewed the patient's medical records. Home Medications Current Medication List: was personally reviewed by me Laboratory Data Attestation: I reviewed the patient's lab results. 07/30/24 11:48 07/30/24 11:48 Lab Results 07/30/24 07/30/24 07/30/24 Range/Units 11:48 12:34 12:41 WBC 4.61 L (4.8-10.8) K/ul RBC 4.54 L (4.70-6.10) M/uL Hgb 14.4 (14.0-18.0) g/dl Hct 40.8 L (42.0-52.0) % MCV 89.9 (80.0-100.0) fL MCH 31.7 (25.0-34.0) pg MCHC 35.3 (32.0-36.0) g/dL RDW Std Deviation 41.1 (36.4-46.3) fL RDW Coeff of Gary 12.4 (11.5-14.5) % Plt Count 139 (130-400) K/uL MPV 10.5 (9.4-12.4) fL Immature Gran % (Auto) 0.9 % Neut % (Auto) 70.7 % Lymph % (Auto) 9.8 % Weber % (Auto) 17.1 % Eos % (Auto) 1.1 % Baso % (Auto) 0.4 % Neut # (Auto) 3.26 (1.40-6.50) K/uL Lymph # (Auto) 0.45 L (1.20-3.40) K/uL Weber # (Auto) 0.79 H (0.11-0.59) K/uL Eos # (Auto) 0.05 (0.00-0.50) K/uL Baso # (Auto) 0.02 (0.00-0.20) K/uL Immature Gran # (Auto) 0.04 (0.01-0.20) K/uL Sodium 139 (136-145) mmol/L Potassium 3.3 L (3.5-5.1) mmol/L Chloride 104 (98-107) mmol/L Carbon Dioxide 28 (21-32) mmol/L Anion Gap 7 (3-11) BUN 19 (6-23) mg/dl Creatinine 0.98 (0.6-1.4) mg/dl Est Cr Clr Drug Dosing 78.6 ml/min eGFR 86.11 BUN/Creatinine Ratio 19.4 (10-20) Glucose 115 H (70-99(Fasting)) mg/dl Lactate 1.0 (0.4-2.0) mmol/L Calcium 9.3 (8.6-10.3) mg/dl Total Bilirubin 1.2 H (0.2-1.0) mg/dl AST 43 H (13-39) U/L ALT 63 H (7-52) U/L Alkaline Phosphatase 59 (34-104) U/L Troponin I High Sens 236.5 H* (0-20) pg/ml Total Protein 6.3 (6.0-8.3) gm/dl Albumin 3.8 (3.4-5.0) gm/dl Globulin 2.5 (2.5-4.0) gm/dl Albumin/Globulin Ratio 1.5 (0.9-2) Adenovirus (PCR) Not Detected (NotDetected) B. pertussis DNA (PCR) Not Detected (NotDetected) B.parapertussis DNA PCR Not Detected (NotDetected) C. pneumoniae DNA (PCR) Not Detected (NotDetected) Coronavirus OC43 (PCR) Not Detected (NotDetected) Coronavirus HKU1 (PCR) Not Detected (NotDetected) Coronavirus 229E (PCR) Not Detected (NotDetected) SARS-CoV-2 (PCR) Not Detected (NotDetected) Coronavirus NL63 (PCR) Not Detected (NotDetected) Human Metapneumovir PCR Not Detected (NotDetected) Influenza Type A (PCR) Not Detected (NotDetected) Influenza Type B (PCR) Not Detected (NotDetected) M. pneumoniae (PCR) Not Detected (NotDetected) Parainfluenza 1 (PCR) Not Detected (NotDetected) Parainfluenza 2 (PCR) Not Detected (NotDetected) Parainfluenza 3 (PCR) Not Detected (NotDetected) Parainfluenza 4 (PCR) Not Detected (NotDetected) RSV (PCR) Not Detected (NotDetected) Entero/Rhino (PCR) Not Detected (NotDetected) Imaging Data Attestation: I personally reviewed and interpreted this imaging study as follows: Radiologist's Impression: Head CT 07/30/24 12:27 CT head/brain wo con CLINICAL HISTORY: 63 years-old Male with dysequilibrium. Acutely altered mental status TECHNIQUE: Multiple axial CT images of the head were obtained without contrast. A dose lowering technique was utilized adhering to the principles of ALARA. CT DOSE: 625.8 mGy.cm COMPARISON: None. FINDINGS: No acute intracranial hemorrhage, midline shift, intracranial mass, hydrocephalus, territorial ischemia or abnormal extra-axial collection. Involutional changes. Mild white matter hypodensities may represent chronic microvascular ischemic disease. Cerebral vascular calcifications. The calvarium is intact. The paranasal sinuses, mastoid air cells, and middle ear cavities are clear. IMPRESSION: No acute intracranial abnormality. ACT 112: Negative or not required by law. The above report was generated using voice recognition software. It may contain grammatical, syntax or spelling errors. Electronically signed by: Venancio Prince M.D. 07/30/2024 1:16 PM Chest X-Ray 07/30/24 12:28 XR chest 2V PA/lateral CLINICAL HISTORY: fever/ chills COMPARISON STUDY: 02/07/2020 FINDINGS: Heart size and pulmonary vasculature are normal. No effusion or consolidation. IMPRESSION: No pneumonia seen. ACT 112: Negative or not required by law. Electronically signed by: James Ricketts M.D. 07/30/2024 1:28 PM ECG Data Attestation: I personally reviewed and interpreted this ECG as follows: Indication: + back/shoulder pain Rate (beats per minute): 88 Rhythm: + normal sinus ECG Intervals/blocks: + Normal QRS, + Normal QT and + Normal IA ECG [place]: + Normal ECG ST segments: + Normal ST segments Change: the following changes noted Additional Comments: Hyperacute T waves and ST elevation from prior ECG have resolved. Blood Pressure Blood Pressure Findings: Normal blood pressure MDM Narrative Patient is a 63-year-old male presents with nonspecific symptoms of neck pain, subjective fevers and chills. Neck pain has resolved. Afebrile nontoxic- appearing here today. No clinical signs or concerns for meningitis. Lab work was obtained. No leukocytosis or bandemia noted. Troponin elevated to 236 here today. EKG without any ischemic changes. Patient not having any chest pain or anginal equivalent symptoms here in the ED. P.o. aspirin and NSTEMI heparin protocol was initiated. Low suspicion for dissection or PE based on clinical presentation. Will admit for management of NSTEMI. Hospitalist service requesting that I reach out to cardiology. Impression & Plan Acute non-ST elevation myocardial infarction (NSTEMI) Discharge Plan Visit Data Chief Complaint: Flu Like Symptoms Stated Complaint: SEVERE FATIGUE, DIZZY ED Provider: Mic Alfred Discharge Problem: Acute non-ST elevation myocardial infarction (NSTEMI) Patient Disposition: Admitted As Inpatient Condition: Good Forms Stand Alone Forms: My [facility] [place] [employer] Prescriptions Prescriptions: No Action atorvastatin [Lipitor] 80 mg tablet 80 mg PO QPM Qty: 90 3RF tirzepatide (weight loss) 10 mg/0.5 mL pen injector 10 mg subcut Q7D Qty: 2 2RF Rx Instructions: tamsulosin [Flomax] 0.4 mg capsule 0.4 mg PO HS Qty: 90 3RF aspirin [Rowdy Low Dose Aspirin] 81 mg tablet,delayed release (DR/EC) 81 mg PO QPM creatine monohydrate 5,000 mg Powder In Packet 5,000 mg PO DAILY Rx Instructions: Mixed in morning shake levothyroxine [Euthyrox] 100 mcg tablet 100 mcg PO DAILYBB Rx Instructions: TAKE 1 TABLET BY MOUTH ONCE DAILY IN THE MORNING lisinopril 10 mg tablet 10 mg PO QPM Referrals Referrals: Mic Lange, [Primary Care Provider] -
--- NOTE | 2024-07-30 13:29 | XRay Report ---
XR chest 2V PA/lateral CLINICAL HISTORY: fever/ chills COMPARISON STUDY: 02/07/2020 FINDINGS: Heart size and pulmonary vasculature are normal. No effusion or consolidation. IMPRESSION: No pneumonia seen. ACT 112: Negative or not required by law. Electronically signed by: James Ricketts M.D. 07/30/2024 1:28 PM
[2024-07-30 13:34] LABS: Adenovirus PCR Not Detected (NotDetected); Bordetella parapertussis PCR Not Detected (NotDetected); Bordetella pertussis PCR Not Detected (NotDetected); Chlamydia pneumoniae PCR Not Detected (NotDetected); Coronavirus 229E PCR Not Detected (NotDetected); Coronavirus CoV-2 (COVID19)PCR Not Detected (NotDetected); Coronavirus HKU1 PCR Not Detected (NotDetected); Coronavirus NL63 PCR Not Detected (NotDetected); Coronavirus OC43PCR Not Detected (NotDetected); Human Metapneumovirus PCR Not Detected (NotDetected); Influenza A PCR Not Detected (NotDetected); Influenza B PCR Not Detected (NotDetected); Mycoplasma pneumoniae PCR Not Detected (NotDetected); Parainfluenza Virus 1 PCR Not Detected (NotDetected); Parainfluenza Virus 2 PCR Not Detected (NotDetected); Parainfluenza Virus 3 PCR Not Detected (NotDetected); Parainfluenza Virus 4 PCR Not Detected (NotDetected); Respiratory Syncytial VirusPCR Not Detected (NotDetected); Rhinovirus/Enterovirus PCR Not Detected (NotDetected)
[2024-07-30] MEDS: HEPARIN SOD (PORCINE) 1000 UNIT/ML IV ONE (14:05)
[2024-07-30] MEDS: HEPARIN 25000 UNIT/500 ML D5W 25,000 UNITS/500 ML BAG IV SCH (14:05)
[2024-07-30] MEDS: Heparin IV Adult Wt-Based Standard w/ INITIAL Bolus Protocol IV STA (14:06)
[2024-07-30] MEDS: ASPIRIN CHEW 324 MG PO STA (14:06)
--- NOTE | 2024-07-30 14:44 | Emergency Department Note ---
ED Visit Note Spoke with Dr. Key. He recommends holding the Heparin for now if patient not having active chest pain. Recommends trending troponins. .
--- NOTE | 2024-07-30 15:06 | History & Physical Report ---
<Statement entered by Agustina Jackson MD - 07/30/24 18:42> I have reviewed vital signs, chart notes, labs and imaging. I have personally seen, evaluated and examined the patient. I have also discussed the management of the patient with the [facility] and I agree with the exam findings documented in the history and physical examination and the documented assessment and plan unless otherwise stated below. 63-year-old man with coronary disease has had days of malaise seems to be improving but has not completely cleared up still feels unsteady and with brain fog. Symptoms started Sunday while he was walking his dog he had pretty abrupt onset of bilateral neck pain in the upper trapezius area that was nonradiating. This was relatively brief less than a few hours resolved but he had malaise all weekend felt like he needed to curl up in a dark room with the lights off included fever chills subjectively, he had a sensation of head fullness and some possibly pulsatile tinnitus but not specifically headache, no vision changes other than he felt like his visual perception was off while driving, no history of migraine. He has had some right upper quadrant fullness or very slight pain ever since being on tirzepatide which has been quite a while approximately a year. he a lot of nausea but no vomiting no abdominal pain no chest pain no upper back pain. He did not have any clear-cut visual changes, no speech or language disturbance, no face arm or leg weakness or numbness that was focal he fell like he had generalized weakness. ED workup pretty unremarkable except for troponin elevated at 236 mild AST/ALT/bilirubin elevation with normal alk phos. Respiratory bio fire was negative potassium was 3.3 my exam is unremarkable he is healthy appearing he does not have any tenderness of his neck no meningeal signs able to chin to his chest, heart is regular no murmurs rubs or gallops extraocular movements intact no nystagmus coordination normal and [id number] and [id number] A/P: overall seems like he may have a resolving viral syndrome with some persistent disequilibrium and brain fog. Differential diagnosis includes an PR which occurred Sunday and residual symptoms/troponin however he never had chest pain or dyspnea. EKG personally reviewed shows normal sinus rhythm evidence of an old anterior infarct which corresponds with the last EKG tracing in 2019 which shows an anterior STEMI. Considered carotid/vertebral or aortic dissection, however, seems unlikely since no chest/back pain and neck pain was symmetric and brief. Some symptoms sound migrainous but no history of this and new onset in a male age 63 would be unlikely. -admit for observation, monitor troponin, TTE. Ed discussed with Dr. Key -tickborne tests prelim neg, biofire neg, will check EBV/CMV serology Date of Service July 30, 2024 Assessment & Plan (1) Neck pain: (2) History of ST elevation myocardial infarction (STEMI): (3) Hypertension: (4) Aortic root dilation: (5) Hypothyroidism: (6) Coronary artery disease: Plan #Subjective fever/chills, Neck Pain (resolved) #Leukopenia, elevated TB/AST/ALT #Elevated Troponin Patient reporting subjective fever/chills and brain fog with neck pain started on Sunday walking dogs. Did report some brain fog. Last dose Zepbound (not DM, doesn't check BSGs, ?hypoglycemic contributing). Trip to [place] on Sunday evening/returned Sunday, no leg edema/calf tenderness or pleuritic chest pain or hx DVT/PE and no hypoxia, CXR negative. Biofire negative. Lactic 1.0 CT head negative for acute CVA. Nonfocal on exam/no meningeal signs but did have elevated troponin however no CP but does have aortic root dilatation but does not appear c/w dissection. No recent Tylenol use and denies alcohol use w/ elevation in TB/AST/ALT 1.2, 43, ALT but no RUQ pain on exam and normal ALP and associated leukopenia/lymphopenia and borderline plt on admission labs consider tick bourne illness Admit telemetry Heparin gtt initiated in ER for troponin 236 -per cards no need to continue as without symptoms and has been stopped --> repeat troponin trended down to 206 and will monitor repeat EKG and third troponin, heparin SQ BID, EKG w/ CP and continue usual ASA/statin Cardiology consulted to weigh in Check ECHO Check lyme/tick studies, CRP/ESR for possible carditis from tick if + studies, can send for blood cultures but defer abx for now/monitor for fever Telemetry monitoring Check BSG AC/HS in event having hypoglycemia from zepbound in non DM patient. ?viral syndrome from other viral infection 1L LR @ 80cc/hr Monitor labs in AM, trend LFTs. If further elevated can check hepatitis panel/further testing #CAD - hx STEMI, follows with Dr Raman, as above troponin elevation suspected demand from possible viral syndrome vs other. No CP or pleuritic pain reported. Heparin gtt discontinued w/ troponin trending down but will continue to trend/obtain echo and cards consult and repeat EKG. Continue usual ASA/statin, lisinopril EKG w/ CP, monitor on telemetry and f/u ECHO. Appreciate recs from cards #Hypothyroidism - on 100mch Synthroid daily. TSH added to labs given reports brain fog and wnl and can continue current dose #HTN - continue lisinopril 10mg daily #Hypokalemia - 3.3, ?2nd to poor PO intake. PO replacement ordered and will check mag. F/u labs in AM Is on mounjaro for weight loss and reports ~40lb weight loss --> as above, ?hypoglycemia and will check BSG AC/HS to monitor DVT proph: Heparin SQ Dispo: PCU History of Present Illness Chief Complaint: fever/chills, brain fog Primary Care Provider: Mic Lange, 63yo male with PMHx significant for CAD s/p stent 2019, aortic root dilatation (4.2cm), HTN, hypothyroidism presented with subjective fever/chills, fatigue and brain fog since last Sunday when walking his dogs with acute sudden onset of neck pain followed by subjective fever/chills. Neck pain since resolved but not feeling "back to normal" Patient evaluated in A10, reports symptoms started on Sunday when walking dogs with acute onset of neck pain/fever/chills but no temp at home. He reports he felt he had a virus and went home to lay down and slept for about a day or so and by Sunday had been feeling well enough to travel to [place] to be with who was having medical procedure but then slept most of that evening and traveled back Sunday evening and has not felt right. Reports his neck pain is currently gone. He denies any leg swelling/edema or history of clot. No CP but was concerned about having a stroke. CT head is negative for acute CVA. No hx of DM but is on Zepbound for weight loss and increased and has been on 10mg but never checked his sugars. Last administration Zepbound was on SUNDAY. Troponin initially elevated 236--> 206 on repeat. No CP at present time or pain between shoulder blades. No cough/sputum production. No meningeal signs at present. Discussed obtaining ECHO, further testing for evaluation for cause including tick panel. No bites/ticks recently reported but does walk in the [place] per patient. No bulls-eye rash on exam noticeable however slight pink like rash anterior chest. Hx of heavy alcohol use/marijuana/psychedelics but quit >40 years ago this sunday. No recent alcohol or Tylenol Heparin gtt initiated in ER however placed on hold for now per Dr Key. Have ordered ECHO and repeat troponin to trend and patient to alert if any issues. CT head negative CXR negative, no hypoxia. Biofire negative WBC leukopenia/lymphopenia, plt 139, K 3.3. Lactic 1.0. TSH added and wnl 4.3. BUN/Cr 19/0.98, TB 1.2, AST 43, ALT 63, ALP 59 Allergies Allergy/AdvReac Type Severity Reaction Status Date / Time No Known Allergies Allergy Verified 07/30/24 13:55 Home Medications Medication Instructions Recorded Confirmed Type aspirin 81 mg tablet,delayed 81 mg PO QPM 09/06/22 07/30/24 History release (Rowdy Low Dose Aspirin) tamsulosin 0.4 mg capsule (Flomax) 0.4 mg PO HS #90 caps 03/11/24 07/30/24 Rx atorvastatin 80 mg tablet (Lipitor) 80 mg PO QPM #90 tabs 03/20/24 07/30/24 Rx tirzepatide (weight loss) 10 10 mg (0.5 mL) subcut Q7D #2 mL 07/01/24 07/30/24 Rx mg/0.5 mL subcutaneous pen injector creatine monohydrate 5,000 mg oral 5,000 mg PO DAILY 07/30/24 07/30/24 History powder packet levothyroxine 100 mcg tablet 100 mcg PO DAILYBB 07/30/24 07/30/24 History (Euthyrox) lisinopril 10 mg tablet 10 mg PO QPM 07/30/24 07/30/24 History Past Med/Surg History Problem List Neck pain Acute non-ST elevation myocardial infarction (NSTEMI) (Acute) BPH loc w/o ur obs/LUTS (Chronic) History of ST elevation myocardial infarction (STEMI) (~01/2020) hx 01/2020--had heart cath with 2 stents placed Hypertension (Chronic) Aortic root dilation 4.2cm per 12/2020 ECHO Hypothyroidism (Chronic) Coronary artery disease Anterior STEMI 01/2020 - s/p two nonoverlapping MIKE to mid LAD; minimal nonculprit disease per cardio Dysmetabolic syndrome X (Chronic) Medical History Acute urinary retention Chronic prostatitis History of COVID-19 Mid september,-home test- body aches, fever, fatigue, no hospitalization, resolved 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 Dr. Contreras H/O right inguinal hernia repair (01/16/22) Right inguinal hernia repair and umbilical hernia repair. Dr. Contreras S/P cardiac catheterization 01/2020- w/ 2 stents placed- follows [facility]/ Ronal Raman last visit 11/2021 History of colonoscopy 08/2019 Repeat 3 yrs History of tooth extraction History of bilateral cataract extraction [place] teeth removed History of dental surgery Family History Sister Colonic polyp Mother Hypothyroidism Colorectal cancer Hypertension Father Cardiac disorder Myocardial infarction Other No family history of adverse response to anesthesia Denies family history of Ovarian cancer Prostate cancer Breast cancer Social History Smoking Status: Former smoker Tobacco Type: Cigarettes Age Started Using Tobacco: 13; Age Quit Using Tobacco: 21; packs per day: 1; Second Hand Exposure: No; Do You Dip or Chew Tobacco: No; Hx Alcohol Use: No Hx Substance Use: No Preferred Language: Belarusian Communication Ability: Effective Visual Impairment: No Limitations Hearing Ability: Normal Amf Mechanic Required: No Beliefs That Will Affect Care: None marital status: Current Living Situation: Spouse current occupational status: retired 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 How many Children do You have: 1 Feels Safe at Home: Yes Childhood Exposure to Second-Hand Smoke: Yes Diet: regular caffeine: Yes during the past year weight has: remained stable Dental Care, Regularly: Yes Physical Activity Frequency: 5-6 Times per Week Seatbelt Use: always Sunscreen Use: No Do you think of yourself as: straight/heterosexual Assistive Devices: None Physical Exam 2 Physical Exam: General: 63yo male sitting up in bed, NAD HEENT: head atraumatic, normocephalic, mm slightly dry, trachea midline Resp: even, unlabored, no wheezing/rales, 98% on RA CV: regular, no significant mrg, NO pitting edema or calf tenderness, pulses present, cap refill wnl GI: +BS, soft/NT MSK/Neuro: nonfocal, able to answer questions appropriately, not confused but some "brain fog", no meningeal signs/bony step offs Psych:AOx3, cooperative and pleasant during exam Results & Data Results & Data Vital Signs (Past 12 Hours) Vital Signs Temp Pulse Pulse Resp BP BP Pulse Ox 07/30/24 13:22 67 12 122/78 98 07/30/24 11:59 92 H 07/30/24 11:41 90 12 115/87 100 07/30/24 11:25 36.4 C L 99 H 16 124/78 98 O2 Del Method 07/30/24 13:22 Room Air 07/30/24 11:59 07/30/24 11:41 Room Air 07/30/24 11:25 Room Air Laboratory Results 07/30/24 07/30/24 07/30/24 Range/Units 14:25 12:41 12:34 WBC (4.8-10.8) K/ul RBC (4.70-6.10) M/uL Hgb (14.0-18.0) g/dl Hct (42.0-52.0) % MCV (80.0-100.0) fL MCH (25.0-34.0) pg MCHC (32.0-36.0) g/dL RDW Std Deviation (36.4-46.3) fL RDW Coeff of Gary (11.5-14.5) % Plt Count (130-400) K/uL MPV (9.4-12.4) fL Immature Gran % (Auto) % Neut % (Auto) % Lymph % (Auto) % [place] % (Auto) % Eos % (Auto) % Baso % (Auto) % Neut # (Auto) (1.40-6.50) K/uL Lymph # (Auto) (1.20-3.40) K/uL [place] # (Auto) (0.11-0.59) K/uL Eos # (Auto) (0.00-0.50) K/uL Baso # (Auto) (0.00-0.20) K/uL Immature Gran # (Auto) (0.01-0.20) K/uL PT INR APTT PTT Ratio Sodium (136-145) mmol/L Potassium (3.5-5.1) mmol/L Chloride (98-107) mmol/L Carbon Dioxide (21-32) mmol/L Anion Gap (3-11) BUN (6-23) mg/dl Creatinine (0.6-1.4) mg/dl Est Cr Clr Drug Dosing ml/min eGFR BUN/Creatinine Ratio (10-20) Glucose (70-99(Fasting)) mg/dl Lactate 1.0 (0.4-2.0) mmol/L Calcium (8.6-10.3) mg/dl Total Bilirubin (0.2-1.0) mg/dl AST (13-39) U/L ALT (7-52) U/L Alkaline Phosphatase (34-104) U/L Troponin I High Sens 206.7 H* (0-20) pg/ml C-Reactive Protein Total Protein (6.0-8.3) gm/dl Albumin (3.4-5.0) gm/dl Globulin (2.5-4.0) gm/dl Albumin/Globulin Ratio (0.9-2) TSH Adenovirus (PCR) Not Detected (NotDetected) Anaplasma Smear Babesia Smear B. pertussis DNA (PCR) Not Detected (NotDetected) B.parapertussis DNA PCR Not Detected (NotDetected) Lyme Disease Screen C. pneumoniae DNA (PCR) Not Detected (NotDetected) Coronavirus OC43 (PCR) Not Detected (NotDetected) Coronavirus HKU1 (PCR) Not Detected (NotDetected) Coronavirus 229E (PCR) Not Detected (NotDetected) SARS-CoV-2 (PCR) Not Detected (NotDetected) Coronavirus NL63 (PCR) Not Detected (NotDetected) Human Metapneumovir PCR Not Detected (NotDetected) Influenza Type A (PCR) Not Detected (NotDetected) Influenza Type B (PCR) Not Detected (NotDetected) M. pneumoniae (PCR) Not Detected (NotDetected) Parainfluenza 1 (PCR) Not Detected (NotDetected) Parainfluenza 2 (PCR) Not Detected (NotDetected) Parainfluenza 3 (PCR) Not Detected (NotDetected) Parainfluenza 4 (PCR) Not Detected (NotDetected) RSV (PCR) Not Detected (NotDetected) Entero/Rhino (PCR) Not Detected (NotDetected) 07/30/24 Range/Units 11:48 WBC 4.61 L (4.8-10.8) K/ul RBC 4.54 L (4.70-6.10) M/uL Hgb 14.4 (14.0-18.0) g/dl Hct 40.8 L (42.0-52.0) % MCV 89.9 (80.0-100.0) fL MCH 31.7 (25.0-34.0) pg MCHC 35.3 (32.0-36.0) g/dL RDW Std Deviation 41.1 (36.4-46.3) fL RDW Coeff of Gary 12.4 (11.5-14.5) % Plt Count 139 (130-400) K/uL MPV 10.5 (9.4-12.4) fL Immature Gran % (Auto) 0.9 % Neut % (Auto) 70.7 % Lymph % (Auto) 9.8 % [place] % (Auto) 17.1 % Eos % (Auto) 1.1 % Baso % (Auto) 0.4 % Neut # (Auto) 3.26 (1.40-6.50) K/uL Lymph # (Auto) 0.45 L (1.20-3.40) K/uL [place] # (Auto) 0.79 H (0.11-0.59) K/uL Eos # (Auto) 0.05 (0.00-0.50) K/uL Baso # (Auto) 0.02 (0.00-0.20) K/uL Immature Gran # (Auto) 0.04 (0.01-0.20) K/uL PT Pending INR Pending APTT Pending PTT Ratio Pending Sodium 139 (136-145) mmol/L Potassium 3.3 L (3.5-5.1) mmol/L Chloride 104 (98-107) mmol/L Carbon Dioxide 28 (21-32) mmol/L Anion Gap 7 (3-11) BUN 19 (6-23) mg/dl Creatinine 0.98 (0.6-1.4) mg/dl Est Cr Clr Drug Dosing 78.6 ml/min eGFR 86.11 BUN/Creatinine Ratio 19.4 (10-20) Glucose 115 H (70-99(Fasting)) mg/dl Lactate (0.4-2.0) mmol/L Calcium 9.3 (8.6-10.3) mg/dl Total Bilirubin 1.2 H (0.2-1.0) mg/dl AST 43 H (13-39) U/L ALT 63 H (7-52) U/L Alkaline Phosphatase 59 (34-104) U/L Troponin I High Sens 236.5 H* (0-20) pg/ml C-Reactive Protein Pending Total Protein 6.3 (6.0-8.3) gm/dl Albumin 3.8 (3.4-5.0) gm/dl Globulin 2.5 (2.5-4.0) gm/dl Albumin/Globulin Ratio 1.5 (0.9-2) TSH Pending Adenovirus (PCR) (NotDetected) Anaplasma Smear Pending Babesia Smear Pending B. pertussis DNA (PCR) (NotDetected) B.parapertussis DNA PCR (NotDetected) Lyme Disease Screen Pending C. pneumoniae DNA (PCR) (NotDetected) Coronavirus OC43 (PCR) (NotDetected) Coronavirus HKU1 (PCR) (NotDetected) Coronavirus 229E (PCR) (NotDetected) SARS-CoV-2 (PCR) (NotDetected) Coronavirus NL63 (PCR) (NotDetected) Human Metapneumovir PCR (NotDetected) Influenza Type A (PCR) (NotDetected) Influenza Type B (PCR) (NotDetected) M. pneumoniae (PCR) (NotDetected) Parainfluenza 1 (PCR) (NotDetected) Parainfluenza 2 (PCR) (NotDetected) Parainfluenza 3 (PCR) (NotDetected) Parainfluenza 4 (PCR) (NotDetected) RSV (PCR) (NotDetected) Entero/Rhino (PCR) (NotDetected) Diagnostic Findings Head CT 07/30/24 12:27 CT head/brain wo con CLINICAL HISTORY: 63 years-old Male with dysequilibrium. Acutely altered mental status TECHNIQUE: Multiple axial CT images of the head were obtained without contrast. A dose lowering technique was utilized adhering to the principles of ALARA. CT DOSE: 625.8 mGy.cm COMPARISON: None. FINDINGS: No acute intracranial hemorrhage, midline shift, intracranial mass, hydrocephalus, territorial ischemia or abnormal extra-axial collection. Involutional changes. Mild white matter hypodensities may represent chronic microvascular ischemic disease. Cerebral vascular calcifications. The calvarium is intact. The paranasal sinuses, mastoid air cells, and middle ear cavities are clear. IMPRESSION: No acute intracranial abnormality. ACT 112: Negative or not required by law. The above report was generated using voice recognition software. It may contain grammatical, syntax or spelling errors. Electronically signed by: Venancio Prince M.D. 07/30/2024 1:16 PM Chest X-Ray 07/30/24 12:28 XR chest 2V PA/lateral CLINICAL HISTORY: fever/ chills COMPARISON STUDY: 02/07/2020 FINDINGS: Heart size and pulmonary vasculature are normal. No effusion or consolidation. IMPRESSION: No pneumonia seen. ACT 112: Negative or not required by law. Electronically signed by: James Ricketts M.D. 07/30/2024 1:28 PM ECG Additional Comments: EKG NSR 88bpm, nonspecific ST segment change inferior leads PG Care Time/CCT Total # of Minutes Spent Total Time Spent with Patient: Total time spent is greater than 50% in coordination of care (as documented) at patient's floor/unit and/or counseling patient: Coding Level of Care Code 25717 INT INP/OBS CARE 3/75MIN Diagnoses Neck pain M54.[address] elevation myocardial infarction (STEMI) I25.2 Hypertension I10 Aortic root dilation I77.810 Hypothyroidism E03.9 Coronary artery disease I25.10
[2024-07-30 15:10] LABS: Troponin I High Sensitivity 206.7 pg/ml (0-20)
[2024-07-30] MEDS: POTASSIUM CHLORIDE CRTAB 20 MEQ TABCR PO STA (15:17)
[2024-07-30 15:22] LABS: C Reactive Protein 4.67 mg/dl (0-0.5)
[2024-07-30 15:36] LABS: INR 1.1 (0.9-1.1); Partial Thromboplastin Ratio 1.2; Partial Thromboplastin Time 33 Seconds (21-31); Prothrombin Time 11.5 Seconds (9.0-12.0)
[2024-07-30 15:37] LABS: Thyroid Stimulating Hormone 4.337 uIu/ml (0.300-4.500)
[2024-07-30] MEDS ORDERED: ACETAMINOPHEN 325 MG TAB PO PRN (17:23)
[2024-07-30] MEDS ORDERED: ONDANSETRON INJ 2 MG/ML 2 ML VIAL IV PRN (17:23)
[2024-07-30] MEDS: LACTATED RINGER'S 1,000 ML IV SCH (17:33)
[2024-07-30 19:58] LABS: Appearance Urine Clear (Clear); Bacteria Urine Automated 2+ (None Seen); Bilirubin Urine Negative (Negative); Blood Urine Trace (Negative); Cast Urine Automated 0-2 /lpf (0-2); Color Urine Yellow; Epithelial Cell Urine Auto 0-2 /hpf (0-2); Glucose Urine UA Negative (Negative); Ketones Urine Trace (Negative); Leukocyte Esterase Urine Trace (Negative); Nitrite Urine Positive (Negative); Protein Urine Trace (Negative); RBC Urine Automated 0-2 /hpf (0-2); Specific Gravity Urine 1.031 (1.000-1.030); Urobilinogen Urine Negative (Negative); WBC Urine Automated 0-5 /hpf (0-5); pH Urine 5.5 (4.5-7.5)
[2024-07-30] MEDS: HEPARIN SOD 5,000 UNIT/0.5 ML VIAL SQ SCH (20:11)
[2024-07-30] MEDS: ASPIRIN 81 MG ECTAB PO SCH (20:12)
[2024-07-30] MEDS: ATORVASTATIN 40 MG TAB PO SCH (20:12)
[2024-07-30] MEDS: TAMSULOSIN HCL 0.4 MG CAP PO SCH (20:12)
[2024-07-30 21:02] LABS: ANTI-Xa, UFH(UnfractionatedHep < 0.10 IU/ml (0.3-0.7)
[2024-07-31] MEDS: cefTRIAXone SODIUM 2,000 MG/50 ML BAG IV SCH (04:13)
[2024-07-31] MEDS: hydrOXYzine HCl 25 MG TAB PO PRN (04:13)
[2024-07-31] MEDS: LEVOTHYROXINE SODIUM 100 MCG TABLET PO SCH (05:53)
[2024-07-31 06:36] LABS: Basophils # (auto) 0.03 K/uL (0.00-0.20); Basophils % (auto) 0.5 %; Eosinophils # (auto) 0.07 K/uL (0.00-0.50); Eosinophils % (auto) 1.1 %; Hematocrit (blood only) 37.7 % (42.0-52.0); Hemoglobin 13.2 g/dl (14.0-18.0); Immature Granulocytes # (auto) 0.04 K/uL (0.01-0.20); Immature Granulocytes % (auto) 0.6 %; Lymphocytes # (auto) 0.47 K/uL (1.20-3.40); Lymphocytes % (auto) 7.3 %; Mean Corpuscular Hemoglobin 31.2 pg (25.0-34.0); Mean Corpuscular Volume 89.1 fL (80.0-100.0); Mean Platelet Volume 10.5 fL (9.4-12.4); Monocytes # (auto) 0.93 K/uL (0.11-0.59); Monocytes % (auto) 14.4 %; Neutrophils % (auto) 76.1 %; Platelet Count 130 K/uL (130-400); RDW Coefficient of Variation 12.5 % (11.5-14.5); RDW Standard Deviation 41.1 fL (36.4-46.3); Red Blood Count 4.23 M/uL (4.70-6.10); White Blood Count 6.44 K/ul (4.8-10.8)
[2024-07-31 07:07] LABS: Bilirubin Direct 0.2 mg/dl (0-0.2); Magnesium 1.9 mg/dl (1.7-2.4); Potassium 3.9 mmol/L (3.5-5.1)
[2024-07-31 07:14] LABS: BUN Creatinine Ratio 17.5 (10-20); Creatinine Clr Calc Pharmacy 96.3 ml/min; Total Protein 5.7 gm/dl (6.0-8.3)
--- NOTE | 2024-07-31 08:40 | Hospitalist Progress Note ---
Date of Service July 31, 2024 Assessment & Plan (1) Neck pain: (2) History of ST elevation myocardial infarction (STEMI): (3) Hypertension: (4) Aortic root dilation: (5) Hypothyroidism: (6) Coronary artery disease: Plan #Leukopenia, elevated TB/AST/ALT, subjective fever/chills, Neck Pain (resolved), Patient reporting subjective fever/chills and brain fog with neck pain started on Sunday walking dogs. Did report some brain fog. Last dose Zepbound (no hx DM/BSG checks at home). Trip to [place] over the weekend but no leg edema/pleuritic pain/hypoxia or hx DVT/PE. CXR negative. Biofire negative. Lactic 1.0. CRP elevated 4.67 but normal ESR. Tick studies unremarkable. No hx etoh use or tylenol reported CT head negative for CVA, nonfocal/no meningeal signs. Possible VIRAL SYNDROME, supportive care Troponin elevated 236 on admission and placed on heparing gtt by ER provider however no CP and discussion w/ cards and was stopped. Notable was also given asa 324mg and was continued on Heparin SQ BID for DVT proph and ECHO ordered and cardiology consulted and now w/ urinary retention and hematuria in setting of reporting straight cath for underlying BPH (on flomax once daily) with last cath ~48hr prior on Sunday #Hematuria, Possible UTI, BPH- hematuria developed overnight 07/30-07/31 - suspected 2nd to heparin/aspirin and straight cath but given subjective fever/chills and UA ordered from admission w/ + nitrites/leuk esterase, 2+ bacteria and no epis, could have underlying UTI. Prior followed w/ urology and on flomax daily which has been continued Continue Ceftriaxone IV 3 way catheter to be placed for bladder scan >400cc, irrigate as needed Renal US ordered Urology consulted - appreciate recs/assistance Hold Heparin SQ for now Monitor blood counts (stable at 13.2 s/p 1L IVF on admissin - follow up urine/blood cx from admission #Elevated Troponin - suspected 2nd to demand ischemia. Some ST changes but no CP reported and troponin trended down on repeat. Peak 236 on admission and if had CA suspect would have been last week. Heparin gtt discontinued, heparin SQ on hold ECHO ordered and obtained this morning, pending Continue home CAD medications. Cards consult pending, appreciated recs/assistance Telemetry monitoring #CAD - hx STEMI, follows with Dr Raman, as above troponin elevation suspected demand from possible viral syndrome vs other. No CP or pleuritic pain reported. but will f/u ECHO, appreciate cards recs and remains on ASA/statin/lisinopril and monitoring on telemetry #Hypothyroidism - TSH wnl and remains on 100mcg Synthroid daily #HTN - Continue lisinopril 10mg daily #Hypokalemia - 3.3 on admit w/ PO replacement ordered and stable 3.9 on repeat. Mag wnl Is on mounjaro for weight loss and reports ~40lb weight loss --> as above, ?hypoglycemia and will check BSG AC/HS to monitor -- POC 103 and will monitor DVT proph: Heparin SQ place on HOLD, SCDs for now/ambulation Dispo: continued inpatient stay, now w/ hematuria. Follow cultures and appreciate recs/assistance from consults Admission and Anticipated Discharge Date Admission Date: July 30, 2024 Subjective Eval this morning, developed hematuria overnight around 3-4am. UA appeared possibly infected. He reports having straight cath every other day, has increased frequency as of late and things it "got ahead of him". Feeling better from viral syndrome standpoint and pacing room, no CP/SOB and ECHO obtained this morning and troponin trended down. Heparin placed on hold w/ hematuria and urology consulted and 3 way catheter to be placed and abx continued w/ ceftriaxone. He reports saw urology in past but they left and only saw the new one once. Discussed will consult to weigh in /assistance. Questions/concerns addressed at this time. Physical Exam 2 Physical Exam: General: 63yo male anxiously ambulating in the room due to need to empty his bladder, mild distress from feeling like he needs to empty, +suprapubic fullness HEENT: head atraumatic, normocephalic, mm improved, trachea midline Resp: even, unlabored, no wheezing/rales, 98% on RA CV: regular, no significant mrg, NO pitting edema or calf tenderness, pulses present, cap refill wnl GI: +BS, slight distension/suprapubic fullness/discomfort, no overt rebound/guarding MSK/Neuro: nonfocal, able to answer questions appropriately, not confused, no meningeal signs, ambulating in the room with steady gate and no assistive device Psych:AOx3, cooperative during exam Results & Data Results & Data Vital Signs (Past 12 Hours) Vital Signs Temp Pulse Pulse Resp BP BP Pulse Ox 07/31/24 08:00 36.5 C 71 18 133/81 98 07/31/24 07:23 99 H 07/31/24 02:40 36.8 C 64 16 121/79 94 07/30/24 22:57 36.9 C 71 18 110/74 97 07/30/24 22:01 69 O2 Del Method 07/31/24 08:00 Room Air 07/31/24 07:23 07/31/24 02:40 Room Air 07/30/24 22:57 Room Air 07/30/24 22:01 Laboratory Results 07/31/24 05:49 07/31/24 05:49 AST 53 CRP 4.67,ESR17 CK 87 Lyme negative, anaplasmosis smear unremarkable Diagnostic Findings Head CT 07/30/24 12:27 CT head/brain wo con CLINICAL HISTORY: 63 years-old Male with dysequilibrium. Acutely altered mental status TECHNIQUE: Multiple axial CT images of the head were obtained without contrast. A dose lowering technique was utilized adhering to the principles of ALARA. CT DOSE: 625.8 mGy.cm COMPARISON: None. FINDINGS: No acute intracranial hemorrhage, midline shift, intracranial mass, hydrocephalus, territorial ischemia or abnormal extra-axial collection. Involutional changes. Mild white matter hypodensities may represent chronic microvascular ischemic disease. Cerebral vascular calcifications. The calvarium is intact. The paranasal sinuses, mastoid air cells, and middle ear cavities are clear. IMPRESSION: No acute intracranial abnormality. ACT 112: Negative or not required by law. The above report was generated using voice recognition software. It may contain grammatical, syntax or spelling errors. Electronically signed by: Venancio Prince M.D. 07/30/2024 1:16 PM Chest X-Ray 07/30/24 12:28 XR chest 2V PA/lateral CLINICAL HISTORY: fever/ chills COMPARISON STUDY: 02/07/2020 FINDINGS: Heart size and pulmonary vasculature are normal. No effusion or consolidation. IMPRESSION: No pneumonia seen. ACT 112: Negative or not required by law. Electronically signed by: James Ricketts M.D. 07/30/2024 1:28 PM PG Care Time/CCT Total # of Minutes Spent Total Time Spent with Patient: Total time spent is greater than 50% in coordination of care (as documented) at patient's floor/unit and/or counseling patient: Coding Level of Care Code 55467 SUB INP/OBS CARE 3/50MIN Diagnoses Neck pain M54.[address] elevation myocardial infarction (STEMI) I25.2 Hypertension I10 Aortic root dilation I77.810 Hypothyroidism E03.9 Coronary artery disease I25.10
[2024-07-31] MEDS ORDERED: CREATINE MONOHYDRATE PO SCH (09:00)
[2024-07-31 09:31] LABS: EBV Nuclear Antigen IgG Ab Positive; EBV Nuclear Antigen IgG Quant > 600.0 U/mL (< 18.0)
[2024-07-31 09:32] LABS: EBV Early Antigen IgG Ab Negative (Negative); EBV Early Antigen IgG Quant 6.3 U/mL (< 9.0); EBV IgM Quant < 10.0 U/mL (< 36.0)
--- NOTE | 2024-07-31 10:53 | Ultrasound Report ---
RENAL ULTRASOUND CLINICAL HISTORY: Hematuria. COMPARISON STUDY: None. TECHNIQUE: Sonography of the kidneys and the urinary bladder was performed. FINDINGS: Several hepatic cysts are incidentally noted. The largest cyst measures 5.4 cm and contains a few thin septations The right kidney measures 13.5 x 5.4 x 6.4 cm and the left kidney measures 13. 3 x 5.4 x 6.3 cm. There is mild right collecting system dilatation without herb hydronephrosis. Ther e is no left hydronephrosis. 8.1 cm right lower pole renal cyst is present. There are left-sided para pelvic cysts. A Marquis catheter within the bladder is present. The prostate is enlarged. Echogenic mat erial within the bladder suggests clot. IMPRESSION: 1. Mild right collecting system dilatation without herb hydronephrosis. No left hydronephrosis. 2. Echogenic material within the bladder suggestive of clot. A coexistent bladder mass is difficult t o exclude by sonography although not definitively identified. Findings could be correlated with cysto scopy. 3. 8 cm right renal cyst. 4. Enlarged prostate. ACT 112: Negative or not required by law. Electronically signed by: Anson Angel M.D. 07/31/2024 10:52 AM
--- NOTE | 2024-07-31 11:20 | XCELERA ---
[id number]\[id number]
--- NOTE | 2024-07-31 12:34 | Cardiology Consultation ---
Date of Consultation July 31, 2024 Assessment & Plan (1) Elevated troponin: (2) Aortic root dilation: (3) Coronary artery disease: Plan 1. Elevated troponin: Is not clear to me why cardiac biomarkers were evaluated at the time of admission. His symptoms were not really suggestive of an acute coronary syndrome. The overall elevation is quite minimal and there is no significant rise or fall suggesting an acute event. I suppose we could be seeing the tail end of a cardiac event which occurred a few days ago, but his symptoms are not characteristic of an acute coronary syndrome. I would not treated as such. Preserved LV systolic function on echocardiography without r egional wall motion abnormalities. No pericardial effusion. I do not believe he requires any additional cardiovascular testing or change in treatment in the absence of new or worsening symptoms. 2. Coronary disease: Status post acute anterior myocardial infarction in 2019. PCI to the LAD. Continue aggressive secondary prevention with daily aspirin and high-dose atorvastatin. 3. Dilated aortic root: Measured at 4.2 cm previously. Normal dimensions on echocardiogram today. Certainly no enlargement or worsening dilation. History of Present Illness Reason for Consultation: Elevated troponin Requesting Physician: Betsy Attending Physician: Agustina Jackson MD History of Present Illness The patient is a 63-year-old gentleman with a history of an anterior myocardial infarction in 2019. At that time he presented with burning and severe chest discomfort as well as bilateral arm paresthesias. He underwent percutaneous intervention to the LAD. He has been maintained on aggressive secondary prevention since that time. 6 days ago the patient noticed the acute onset of diaphoresis, fatigue and subjective fevers after experiencing a brief episode of posterior neck discomfort. He had some abdominal complaints such as nausea as well. Due to the severity of his symptoms he stayed in bed for nearly 2 days. He recalls fevers and rigors during that time. His symptoms began to improve on Sunday evening and into Sunday. He continued to feel somewhat weak, tired and had an element of cognitive dysfunction. Based on the persistent nature of his symptoms and his belief that he should feel better sooner he contacted his physician who according to the patient was concerned about a stroke and sent him to the emergency room. In the emergency room cardiac biomarkers were obtained. These were elevated. The patient was told that he had a heart attack and will require a heart catheterization. He was started on a heparin infusion. This morning the patient claims to be feeling well. His symptoms continue to improve. It seems that his cognitive dysfunction is also improved. At no time was he having symptoms of chest discomfort or symptoms similar to that which he experienced in 2020. He is tolerating a normal diet. He is generally quite an active individual who rides a bicycle and does some resistance training without symptom. He denied dizziness, lightheadedness, presyncope or syncope. He has not been aware of any palpitations. No orthopnea or limiting dyspnea. No lower extremity edema. He does require urinary catheterization which he performs himself routinely. Last evening he had some evidence of obstruction and required Marquis catheter placement. Now experiencing some hematuria. Allergies Allergy/AdvReac Type Severity Reaction Status Date / Time No Known Allergies Allergy Verified 07/30/24 13:55 Home Medications Medication Instructions Recorded Confirmed Type aspirin 81 mg tablet,delayed 81 mg PO QPM 09/06/22 07/30/24 History release (Rowdy Low Dose Aspirin) tamsulosin 0.4 mg capsule (Flomax) 0.4 mg PO HS #90 caps 03/11/24 07/30/24 Rx atorvastatin 80 mg tablet (Lipitor) 80 mg PO QPM #90 tabs 03/20/24 07/30/24 Rx tirzepatide (weight loss) 10 10 mg (0.5 mL) subcut Q7D #2 mL 07/01/24 07/30/24 Rx mg/0.5 mL subcutaneous pen injector creatine monohydrate 5,000 mg oral 5,000 mg PO DAILY 07/30/24 07/30/24 History powder packet levothyroxine 100 mcg tablet 100 mcg PO DAILYBB 07/30/24 07/30/24 History (Euthyrox) lisinopril 10 mg tablet 10 mg PO QPM 07/30/24 07/30/24 History Patient History Medical History Acute urinary retention Chronic prostatitis History of COVID-19 Mid september,-home test- body aches, fever, fatigue, no hospitalization, resolved 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 Dr. Contreras H/O right inguinal hernia repair (01/16/22) Right inguinal hernia repair and umbilical hernia repair. Dr. Contreras S/P cardiac catheterization 01/2020- w/ 2 stents placed- follows w/ Ronal Raman last visit 11/2021 History of colonoscopy 08/2019 Repeat 3 yrs History of tooth extraction History of bilateral cataract extraction [place] teeth removed History of dental surgery Family History Sister Colonic polyp Mother Hypothyroidism Colorectal cancer Hypertension Father Cardiac disorder Myocardial infarction Other No family history of adverse response to anesthesia Denies family history of Ovarian cancer Prostate cancer Breast cancer Social History Smoking Status: Never smoker Tobacco Type: Cigarettes Age Started Using Tobacco: 13; Age Quit Using Tobacco: 21; packs per day: 1; Second Hand Exposure: No; Do You Dip or Chew Tobacco: No; Tobacco Cessation Education Requested by Patient: No Hx Alcohol Use: No Hx Substance Use: No Preferred Language: Israeli Communication Ability: Effective Visual Impairment: No Limitations Hearing Ability: Normal Straightedge Man Required: No Beliefs That Will Affect Care: None marital status: Current Living Situation: Spouse 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 occupational 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 Mood and affect appeared normal. He answered all questions appropriately. HEENT: Pupils are equal and reactive to light and accommodation. Extraocular movements are intact. The sclerae are anicteric. Neuro: Cranial nerves intact Lungs: Clear to auscultation bilaterally. He has good air movement without use of accessory muscles. No rales wheezes or rhonchi. Cardiac: Heart demonstrates a regular rate and rhythm. Normal S1 and S2. Crescendo systolic murmur variable intensity Pulses: The patient has palpable radial pulses bilaterally that are equal in intensity Urinary catheter draining bloody urine Extremities: There was no evidence of hypoperfusion. There is no cyanosis or clubbing. There is no edema. Skin: I did not appreciate any rashes on examination today. Results & Data Vital Signs (Past 12 Hours) Vital Signs Temp Pulse Pulse Resp BP Pulse Ox O2 Del Method 07/31/24 11:15 36.3 C L 71 18 122/75 98 Room Air 07/31/24 08:00 36.5 C 71 18 133/81 98 Room Air 07/31/24 07:23 99 H 07/31/24 02:40 36.8 C 64 16 121/79 94 Room Air Laboratory Results Abnormal Lab Results 07/30/24 07/30/24 07/30/24 11:48 12:34 12:41 WBC 4.61 L RBC 4.54 L Hgb 14.4 Hct 40.8 L MCV 89.9 MCH 31.7 MCHC 35.3 RDW Std Deviation 41.1 RDW Coeff of Gary 12.4 Plt Count 139 MPV 10.5 Immature Gran % (Auto) 0.9 Neut % (Auto) 70.7 Lymph % (Auto) 9.8 [place] % (Auto) 17.1 Eos % (Auto) 1.1 Baso % (Auto) 0.4 Neut # (Auto) 3.26 Lymph # (Auto) 0.45 L [place] # (Auto) 0.79 H Eos # (Auto) 0.05 Baso # (Auto) 0.02 Immature Gran # (Auto) 0.04 ESR 15 PT 11.5 INR 1.1 APTT 33 H PTT Ratio 1.2 Heparin Anti-Xa, Unfract Sodium 139 Potassium 3.3 L Chloride 104 Carbon Dioxide 28 Anion Gap 7 BUN 19 Creatinine 0.98 Est Cr Clr Drug Dosing 78.6 eGFR 86.11 BUN/Creatinine Ratio 19.4 Glucose 115 H POC Glucose Lactate 1.0 Calcium 9.3 Magnesium Total Bilirubin 1.2 H Direct Bilirubin AST 43 H ALT 63 H Alkaline Phosphatase 59 Total Creatine Kinase Troponin I High Sens 236.5 H* C-Reactive Protein 4.67 H Total Protein 6.3 Albumin 3.8 Globulin 2.5 Albumin/Globulin Ratio 1.5 TSH 4.337 Urine Color Urine Appearance Urine pH Ur Specific [place] Urine Protein Urine Glucose (UA) Urine Ketones Urine Blood Urine Nitrite Urine Bilirubin Urine Urobilinogen Ur Leukocyte Esterase Urine WBC (Auto) Urine RBC (Auto) U Hyaline Cast (Auto) U Epithel Cells (Auto) Urine Bacteria (Auto) Urine Comment Adenovirus (PCR) Not Detected Anaplasma Smear See Comment Babesia Smear See Comment B. pertussis DNA (PCR) Not Detected B.parapertussis DNA PCR Not Detected Lyme Disease Screen Negative C. pneumoniae DNA (PCR) Not Detected Coronavirus OC43 (PCR) Not Detected Coronavirus HKU1 (PCR) Not Detected Coronavirus 229E (PCR) Not Detected SARS-CoV-2 (PCR) Not Detected Coronavirus NL63 (PCR) Not Detected EBV Capsid Ag IgG Ab EBV Caps Ag IgG Sig Str EBV Capsid Ag IgM Ab EBV Caps Ag IgM Sig Str EBV Early Antigen IgG EBV EA Signal Strength EBV Nuclear Antigen Ab EBV Nucl Ag IgG Sig Str EBV Interpretation Human Metapneumovir PCR Not Detected Influenza Type A (PCR) Not Detected Influenza Type B (PCR) Not Detected M. pneumoniae (PCR) Not Detected Parainfluenza 1 (PCR) Not Detected Parainfluenza 2 (PCR) Not Detected Parainfluenza 3 (PCR) Not Detected Parainfluenza 4 (PCR) Not Detected RSV (PCR) Not Detected Entero/Rhino (PCR) Not Detected 07/30/24 07/30/24 07/30/24 14:25 16:09 20:12 WBC RBC Hgb Hct MCV MCH MCHC RDW Std Deviation RDW Coeff of Gary Plt Count MPV Immature Gran % (Auto) Neut % (Auto) Lymph % (Auto) [place] % (Auto) Eos % (Auto) Baso % (Auto) Neut # (Auto) Lymph # (Auto) [place] # (Auto) Eos # (Auto) Baso # (Auto) Immature Gran # (Auto) ESR PT INR APTT PTT Ratio Heparin Anti-Xa, Unfract < 0.10 L Sodium Potassium Chloride Carbon Dioxide Anion Gap BUN Creatinine Est Cr Clr Drug Dosing eGFR BUN/Creatinine Ratio Glucose POC Glucose 103 H Lactate Calcium Magnesium 2.0 Total Bilirubin Direct Bilirubin AST ALT Alkaline Phosphatase Total Creatine Kinase Troponin I High Sens 206.7 H* 190.4 H* C-Reactive Protein Total Protein Albumin Globulin Albumin/Globulin Ratio TSH Urine Color Urine Appearance Urine pH Ur Specific [place] Urine Protein Urine Glucose (UA) Urine Ketones Urine Blood Urine Nitrite Urine Bilirubin Urine Urobilinogen Ur Leukocyte Esterase Urine WBC (Auto) Urine RBC (Auto) U Hyaline Cast (Auto) U Epithel Cells (Auto) Urine Bacteria (Auto) Urine Comment Adenovirus (PCR) Anaplasma Smear Babesia Smear B. pertussis DNA (PCR) B.parapertussis DNA PCR Lyme Disease Screen C. pneumoniae DNA (PCR) Coronavirus OC43 (PCR) Coronavirus HKU1 (PCR) Coronavirus 229E (PCR) SARS-CoV-2 (PCR) Coronavirus NL63 (PCR) EBV Capsid Ag IgG Ab EBV Caps Ag IgG Sig Str EBV Capsid Ag IgM Ab EBV Caps Ag IgM Sig Str EBV Early Antigen IgG EBV EA Signal Strength EBV Nuclear Antigen Ab EBV Nucl Ag IgG Sig Str EBV Interpretation Human Metapneumovir PCR Influenza Type A (PCR) Influenza Type B (PCR) M. pneumoniae (PCR) Parainfluenza 1 (PCR) Parainfluenza 2 (PCR) Parainfluenza 3 (PCR) Parainfluenza 4 (PCR) RSV (PCR) Entero/Rhino (PCR) 07/30/24 07/31/24 Unknown 05:49 WBC 6.44 RBC 4.23 L Hgb 13.2 L Hct 37.7 L MCV 89.1 MCH 31.2 MCHC 35.0 RDW Std Deviation 41.1 RDW Coeff of Gary 12.5 Plt Count 130 MPV 10.5 Immature Gran % (Auto) 0.6 Neut % (Auto) 76.1 Lymph % (Auto) 7.3 [place] % (Auto) 14.4 Eos % (Auto) 1.1 Baso % (Auto) 0.5 Neut # (Auto) 4.90 Lymph # (Auto) 0.47 L [place] # (Auto) 0.93 H Eos # (Auto) 0.07 Baso # (Auto) 0.03 Immature Gran # (Auto) 0.04 ESR PT INR APTT PTT Ratio Heparin Anti-Xa, Unfract Sodium 139 Potassium 3.9 Chloride 106 Carbon Dioxide 27 Anion Gap 6 BUN 14 Creatinine 0.80 Est Cr Clr Drug Dosing 96.3 eGFR 98.83 BUN/Creatinine Ratio 17.5 Glucose 102 H POC Glucose Lactate Calcium 9.0 Magnesium 1.9 Total Bilirubin 1.0 Direct Bilirubin 0.2 AST 32 ALT 53 H Alkaline Phosphatase 51 Total Creatine Kinase 87 Troponin I High Sens C-Reactive Protein Total Protein 5.7 L Albumin 3.6 Globulin Albumin/Globulin Ratio TSH Urine Color Yellow Urine Appearance Clear Urine pH 5.5 Ur Specific [place] 1.031 H Urine Protein Trace H Urine Glucose (UA) Negative Urine Ketones Trace H Urine Blood Trace H Urine Nitrite Positive A Urine Bilirubin Negative Urine Urobilinogen Negative Ur Leukocyte Esterase Trace H Urine WBC (Auto) 0-5 Urine RBC (Auto) 0-2 U Hyaline Cast (Auto) 0-2 U Epithel Cells (Auto) 0-2 Urine Bacteria (Auto) 2+ H Urine Comment Adenovirus (PCR) Anaplasma Smear Babesia Smear B. pertussis DNA (PCR) B.parapertussis DNA PCR Lyme Disease Screen C. pneumoniae DNA (PCR) Coronavirus OC43 (PCR) Coronavirus HKU1 (PCR) Coronavirus 229E (PCR) SARS-CoV-2 (PCR) Coronavirus NL63 (PCR) EBV Capsid Ag IgG Ab Positive EBV Caps Ag IgG Sig Str 124.0 EBV Capsid Ag IgM Ab Negative EBV Caps Ag IgM Sig Str < 10.0 EBV Early Antigen IgG Negative EBV EA Signal Strength 6.3 EBV Nuclear Antigen Ab Positive EBV Nucl Ag IgG Sig Str > 600.0 EBV Interpretation See Comment Human Metapneumovir PCR Influenza Type A (PCR) Influenza Type B (PCR) M. pneumoniae (PCR) Parainfluenza 1 (PCR) Parainfluenza 2 (PCR) Parainfluenza 3 (PCR) Parainfluenza 4 (PCR) RSV (PCR) Entero/Rhino (PCR) Diagnostic Findings Echocardiogram 07/31/2024: Normal LV systolic function with ejection fraction of 60 to 65%. Stage I diastolic dysfunction. Aortic valve sclerosis without stenosis. Mildly elevated estimated pulmonary pressures. Normal aortic root diameter Chest x-ray obtained at the time of admission did not reveal any acute cardiopulmonary process PG Care Time/CCT Total # of Minutes Spent Total Time Spent with Patient: Total time spent is greater than 50% in coordination of care (as documented) at patient's floor/unit and/or counseling patient: Coding Level of Care Code 07069 IN/OBS CONSULT LVL 4,60M Diagnoses Elevated troponin R79.89 Aortic root dilation I77.810 Coronary artery disease I25.10
--- NOTE | 2024-07-31 13:09 | Electrocardiogram Report ---
Test Reason : Blood Pressure : */* mmHG Vent. Rate : 88 BPM Atrial Rate : 88 BPM P-R Int : 144 ms QRS Dur : 94 ms QT Int : 360 ms P-R-T Axes : 57 80 47 degrees QTcB Int : 435 ms Normal sinus rhythm When compared with ECG of 07-Feb-2020 10:05, Non-specific change in ST segment in Inferior leads ST no longer elevated in Anterior leads T wave inversion no longer evident in Inferior leads Nonspecific T wave abnormality now evident in Anterior leads Confirmed by Ronal Key ([id number]) on 07/31/2024 1:09:05 PM Referred By: REFERRED SELF Confirmed By: Ronal Key
--- NOTE | 2024-07-31 13:15 | Electrocardiogram Report ---
Test Reason : Blood Pressure : */* mmHG Vent. Rate : 65 BPM Atrial Rate : 65 BPM P-R Int : 180 ms QRS Dur : 90 ms QT Int : 398 ms P-R-T Axes : 69 66 62 degrees QTcB Int : 413 ms Normal sinus rhythm When compared with ECG of 30-Jul-2024 11:35, (unconfirmed) No significant change was found Confirmed by Ronal Key ([id number] on 07/31/2024 1:14:58 PM Referred By: REFERRED SELF Confirmed By: Ronal Key
[2024-07-31] MEDS: OPTIRAY 320 100ml IV ONE (15:03)
--- NOTE | 2024-07-31 15:36 | CT Scan Report ---
CT abdomen pelvis wo/w con HISTORY: 63 years-old Male gross hematuria COMPARISON: Renal ultrasound 07/31/2024 TECHNIQUE: Multiple axial CT images of the abdomen and pelvis were obtained with and without IV contr ast utilizing a hematuria protocol with delayed postcontrast images. A dose lowering technique was us ed consistent with the principals of KUMAR. FINDINGS: Trace pleural effusions with mild dependent subsegmental bibasilar atelectasis. Extensive coronary ar estee calcifications. No pneumatosis or pneumoperitoneum. Spleen is enlarged measuring up to 14.4 cm. Unremarkable pancreas and adrenal glands. Mildly contracted gallbladder. Fluid attenuating foci throu ghout the liver are suggestive of cysts measuring up to 5.4 cm, some which are partially septated. Pa tency of the hepatic and portal veins. Bilateral perinephric stranding. No renal or ureteral calculi or hydronephrosis. Exophytic cyst of th e mid to inferior pole right kidney measures 8.3 x 7.2 x 8.0 cm. Bilateral renal sinus cysts. No enha ncing renal mass lesions are seen. No upper urothelial lesion is identified. Partially decompressed b ladder with Marquis catheter in place. There is a large amount of intraluminal debris/blood products in the bladder lumen. Bladder wall thickening with perivesicular stranding. Prostatomegaly. Trace free pelvic fluid. Colonic diverticulosis without acute diverticulitis. Normal appendix. No acute fracture or destructiv e bone lesion. IMPRESSION: 1. No renal or ureteral calculi, hydronephrosis or upper urothelial lesion. 2. Prostamegaly with evidence of chronic outlet obstruction. 3. There is a large amount of intraluminal hemorrhagic debris within the urinary bladder lumen is aga in noted. A bladder mass is not definitively seen, however findings could be correlated with cystosco py. 4. Bilateral renal cysts. 5. Colonic diverticulosis. 6. Trace pleural effusions with bibasilar atelectasis. ACT 112: Negative or not required by law. The above report was generated using voice recognition software. It may contain grammatical, syntax o r spelling errors. Electronically signed by: Venancio Prince M.D. 07/31/2024 3:33 PM
--- NOTE | 2024-07-31 17:27 | Urology Consultation ---
Date of Consultation July 31, 2024 Assessment & Plan (1) Gross hematuria: Plan 63yo male admitted with leukopenia, elevated TB/AST/ALT, subjective fever/chills, Neck Pain - Urology consulted for hematuria Hx of BPH with CIC 1x/day. Pt developed hematuria overnight. Three-way Marquis catheter placed by nursing staff earlier today. He is afebrile with stable vitals at present Labs-WBC 6.44, hemoglobin 13.2, creatinine 0.80 Urine culture preliminary E. coli Marquis catheter draining maroon colored urine with 1200 mL output in the bag. Renal ultrasound -mild right collecting system dilation without herb hydronephrosis, no left-sided hydronephrosis, echogenic material within the bladder suggestive of clot vs possible mass Maintain Marquis catheter and monitor urine output, can hand irrigate as needed for clots, retention, suprapubic pain. Continue antibiotics and tailor per culture sensitivities. Will obtain CT abdomen pelvis with/without contrast for further evaluation of gross hematuria. Continue supportive care. Urology will follow, please call with any questions/concerns. History of Present Illness Attending Physician: Agustina Jackson MD History of Present Illness 63 year old male who presented to the ED on 07/30/24 with subjective fever/chills, fatigue and brain fog since last Sunday when walking his dogs with acute sudden onset of neck pain followed by subjective fever/chills. He was admitted to medicine service for further workup and management. Pt developed hematuria overnight 07/30-07/31 Had been started on heparin gtt at time of admission due to elevated troponin - has since stopped Pt does self catheterize at home typically 1x/day Reports he had forgotten to cath and when he tried voiding he initially was unable to go When he did void, he reported gross hematuria A renal ultrasound was obtained noting mild right collecting system dilation without herb hydronephrosis, no left-sided hydronephrosis, echogenic material within the bladder suggestive of clot. A three-way Marquis catheter was placed by nursing staff. Patient was seen at bedside today. He was awake and ambulating in room on arrival. No acute distress. At the time of my exam, his Marquis catheter was draining maroon-colored urine. There was approximately 1200 mL of urine output in the bag. Patient denied any significant pain. No fever. Allergies Allergy/AdvReac Type Severity Reaction Status Date / Time No Known Allergies Allergy Verified 07/30/24 13:55 Home Medications Medication Instructions Recorded Confirmed Type aspirin 81 mg tablet,delayed 81 mg PO QPM 09/06/22 07/30/24 History release (Rowdy Low Dose Aspirin) tamsulosin 0.4 mg capsule (Flomax) 0.4 mg PO HS #90 caps 03/11/24 07/30/24 Rx atorvastatin 80 mg tablet (Lipitor) 80 mg PO QPM #90 tabs 03/20/24 07/30/24 Rx tirzepatide (weight loss) 10 10 mg (0.5 mL) subcut Q7D #2 mL 07/01/24 07/30/24 Rx mg/0.5 mL subcutaneous pen injector creatine monohydrate 5,000 mg oral 5,000 mg PO DAILY 07/30/24 07/30/24 History powder packet levothyroxine 100 mcg tablet 100 mcg PO DAILYBB 07/30/24 07/30/24 History (Euthyrox) lisinopril 10 mg tablet 10 mg PO QPM 07/30/24 07/30/24 History Patient History Medical History Acute urinary retention Chronic prostatitis History of COVID-19 Mid september,-home test- body aches, fever, fatigue, no hospitalization, resolved 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 Dr. Contreras H/O right inguinal hernia repair (01/16/22) Right inguinal hernia repair and umbilical hernia repair. Dr. Contreras S/P cardiac catheterization 01/2020- w/ 2 stents placed- follows w/ Ronal Raman last visit 11/2021 History of colonoscopy 08/2019 Repeat 3 yrs History of tooth extraction History of bilateral cataract extraction G[place]mith teeth removed History of dental surgery Family History Sister Colonic polyp Mother Hypothyroidism Colorectal cancer Hypertension Father Cardiac disorder Myocardial infarction Other No family history of adverse response to anesthesia Denies family history of Ovarian cancer Prostate cancer Breast cancer Social History Smoking Status: Never smoker Tobacco Type: Cigarettes Age Started Using Tobacco: 13; Age Quit Using Tobacco: 21; packs per day: 1; Second Hand Exposure: No; Do You Dip or Chew Tobacco: No; Tobacco Cessation Education Requested by Patient: No Hx Alcohol Use: No Hx Substance Use: No Preferred Language: Syriac Communication Ability: Effective Visual Impairment: No Limitations Hearing Ability: Normal Planer Off Bearer Required: No Beliefs That Will Affect Care: None marital status: Current Living Situation: Spouse current occupational status: 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 How many Children do You have: 1 Other Information That Helps Us Care for You: No Feels Safe at Home: Yes Safety Concerns: Feels Safe At This Time Childhood Exposure to Second-Hand Smoke: Yes Diet: regular caffeine: Yes during the past year weight has: remained stable Dental Care, Regularly: Yes Physical Activity Frequency: 5-6 Times per Week Seatbelt Use: always Sunscreen Use: No Do you think of yourself as: straight/heterosexual Assistive Devices: None Review of Systems Review of Systems: All systems reviewed & are unremarkable except as noted in HPI & below Physical Exam Constitutional: no acute distress Respiratory: no respiratory distress and no labored breathing Skin: No visible rashes or lesions to exposed skin areas Neurologic: moves all extremities and awake Psychiatric: A+Ox3, euthymic affect Genitourinary: Marquis intact Results & Data Vital Signs (Past 12 Hours) Vital Signs Temp Pulse Pulse Resp BP Pulse Ox O2 Del Method 07/31/24 14:04 71 07/31/24 11:15 36.3 C L 71 18 122/75 98 Room Air 07/31/24 08:00 36.5 C 71 18 133/81 98 Room Air 07/31/24 07:23 99 H 07/31/24 02:40 36.8 C 64 16 121/79 94 Room Air PG Care Time/CCT Total # of Minutes Spent Total Time Spent with Patient: Total time spent is greater than 50% in coordination of care (as documented) at patient's floor/unit and/or counseling patient: Coding Level of Care Code 53019 IN/OBS CONSULT LVL 4,60M Diagnoses Gross hematuria R31.0
[2024-07-31] MEDS: lisinopril 10 MG TAB PO SCH (19:47)
[2024-08-01 06:11] LABS: Hematocrit (blood only) 35.5 % (42.0-52.0); Hemoglobin 12.3 g/dl (14.0-18.0); Mean Corpuscular Hemoglobin 31.1 pg (25.0-34.0); Mean Corpuscular Hgb Conc 34.6 g/dL (32.0-36.0); Mean Corpuscular Volume 89.9 fL (80.0-100.0); Platelet Count 151 K/uL (130-400); RDW Coefficient of Variation 12.4 % (11.5-14.5); RDW Standard Deviation 41.2 fL (36.4-46.3); Red Blood Count 3.95 M/uL (4.70-6.10); White Blood Count 6.16 K/ul (4.8-10.8)
[2024-08-01 06:37] LABS: Albumin Globulin Ratio 1.6 (0.9-2); BUN Creatinine Ratio 15.1 (10-20); Creatinine Clr Calc Pharmacy 82.9 ml/min; Globulin 2.1 gm/dl (2.5-4.0); Potassium 4.4 mmol/L (3.5-5.1); Total Protein 5.5 gm/dl (6.0-8.3)
--- NOTE | 2024-08-01 08:09 | Hospitalist Progress Note ---
<Statement entered by Agustina Jackson MD - 08/01/24 17:05> EBV resulted - past infection CMV pending Date of Service August 01, 2024 Assessment & Plan (1) Neck pain: (2) History of ST elevation myocardial infarction (STEMI): (3) Hypertension: (4) Aortic root dilation: (5) Hypothyroidism: (6) Coronary artery disease: Plan #Leukopenia, elevated TB/AST/ALT, subjective fever/chills, Neck Pain (resolved), Patient reporting subjective fever/chills and brain fog with neck pain started on Sunday walking dogs. Did report some brain fog. Last dose Zepbound (no hx DM/BSG checks at home). Trip to [place] over the weekend but no leg edema/pleuritic pain/hypoxia or hx DVT/PE. CXR negative. Biofire negative. Lactic 1.0. CRP elevated 4.67 but normal ESR. Tick studies unremarkable. No hx etoh use or tylenol reported CT head negative for CVA, nonfocal/no meningeal signs. Troponin elevated 236 on admission and placed on heparing gtt by ER provider however no CP and discussion w/ cards and was stopped. Notable was also given asa 324mg and was continued on Heparin SQ BID for DVT proph and ECHO ordered and cardiology consulted and now w/ urinary retention and hematuria in setting of reporting straight cath for underlying BPH (on flomax once daily) with last cath ~48hr prior on Sunday and possible UTI, but could have had viral syndrome this past week given reports vs brewing UTI. Blood cx remain NGTD from admission Tx UTI/hematuria below #Hematuria, Possible UTI, BPH- hematuria developed overnight 07/30-07/31 - suspected 2nd to heparin/aspirin and straight cath at baseline but given subj ective fever/chills and UA ordered from admission w/ + nitrites/leuk esterase, 2+ bacteria and no epis, could have underlying UTI. Prior followed w/ urology and on flomax daily which has been continued on admission Urology consulted CTAP w/ Prostatomegaly with evidence of chronic outlet obstruction. There is a large amount of intraluminal hemorrhagic debris within the urinary bladder lumen is again noted. A bladder mass is not definitively seen, however findings could be correlated with cystoscopy. NPO AM 08/[address], irrigation as needed - per COLTON this AM/flushed, draining appropriately and NPO cancelled/continuing to monitor Ceftriaxone continued -Urine cx Ecoli. Resistance to ampicillin, gent, bactrim, but sensitive to Ceftriaxone and has been continued for now -consideration to de-escalate pending plan from urology/possible intervention w/ cysto for eval to ensure no underlying mass/malignancy. Did have recent weight loss but clear reason w/ zepbound use Discussed w/ patient and if remaining draining without need for cysto/irrigation and debridement of clot could potentially discharge 08/02 on PO antibiotics with outpatient urology follow up for evaluation and voiding trial, also possible REZUM or other procedure for enlarged prostate. Continues on flomax, ?consideration for proscar prior to dc Hgb stable w/ IVF prior and in setting of hematuria.ASA placed on hold, ok per cards fro short term. Heparin SQ on hold, no CP reported and remains on telemetry CBC w/ AM labs #Elevated Troponin, CAD - hx STEMI, follows w/ Dr Raman. Trop peak 236 on admission, ?demand ischemia from infection vs other w/ ? underlying event this past week w/ acute neck pain/diaphoresis. Some ST changes but no CP reported and troponin trended down on repeat. ECHO w/o wma and per cards no further evaluation needed Continues on statin, lisinopril. ASA placed on hold due to hematuria above Monitor for any CP, EKG if occurs #Hypothyroidism - TSH wnl and remains on 100mcg Synthroid daily #HTN - Continue lisinopril 10mg daily #Hypokalemia - 3.3 on admit, PO replacement ordered and remains stable. K 4.4 and will monitor w/ ongoing lisinopril use #LFT elevation - on admission. tick studies negative/babesia PCR pending. LFTs normalized on repeat testing, no RUQ pain EBV pending given possible recent viral illness this past week *Is on zepbound for weight loss and reports ~40lb weight loss --> as above, ?hypoglycemia and will check BSG AC/HS to monitor -- AM glu 104 and will monitor AC/HS to ensure no issues (prior A1c 5.2, not DM) DVT proph: Heparin SQ place on HOLD due to hematuria, has been ambulating in the room frequently, SCDs have been added and would rec continued ambulation Dispo: continued inpatient stay, monitoring hematuria. If no intervention with urology and brandon remaining to drain, consideration for discharge this weekend on PO antibiotics with outpatient urology follow up Admission and Anticipated Discharge Date Admission Date: July 30, 2024 Subjective Evaluated this morning around 10, ambulating in the room. NAD. Brandon flushed by Urology COLTON, no OR for cysto but discussed eventual benefit to eval underlying lesion to be sure however no enlarged lymph nodes concerning for metastatic disease and could be from underlying UTI +/- BPH and likely benefit from intervention for prostate eventually. Diet ordered and monitoring for now. If no planned intervention, discussed possible dc w/ brandon and outpatient follow up with Urology over the weekend pending course. No CP/SOB, nausea/vomiting, abdominal pain, nausea or vomiting. Questions/concerns addressed at this time. Physical Exam Physical Exam: General: 63yo male ambulating in the room, NAD HEENT: head atraumatic, normocephalic, mm improved, trachea midline Resp: even, unlabored, no wheezing/rales, on RA CV: regular, no significant mrg, NO pitting edema or calf tenderness, pulses present, cap refill wnl GI: +BS, soft/nontender : brandon draining maroon urine, no significant clot, draining appropriately/flushed by urology COLTON this morning MSK/Neuro: nonfocal, able to answer questions appropriately, not confused, no meningeal signs, ambulating in the room with steady gate and no assistive device Psych:AOx3, cooperative during exam Results & Data Results & Data Vital Signs (Past 12 Hours) Vital Signs Temp Pulse Pulse Resp BP Pulse Ox O2 Del Method 08/01/24 07:01 65 08/01/24 07:00 36.3 C L 74 18 108/72 98 Room Air 08/01/24 03:02 36.7 C 67 16 100/62 99 Room Air 07/31/24 23:21 36.8 C 67 18 125/74 98 Room Air 07/31/24 22:05 66 Laboratory Results Renal Ultrasound 07/31/24 09:18 RENAL ULTRASOUND CLINICAL HISTORY: Hematuria. COMPARISON STUDY: None. TECHNIQUE: Sonography of the kidneys and the urinary bladder was performed. FINDINGS: Several hepatic cysts are incidentally noted. The largest cyst measures 5.4 cm and contains a few thin septations The right kidney measures 13.5 x 5.4 x 6.4 cm and the left kidney measures 13.3 x 5.4 x 6.3 cm. There is mild right collecting system dilatation without herb hydronephrosis. There is no left hydronephrosis. 8.1 cm right lower pole renal cyst is present. There are left-sided parapelvic cysts. A Brandon catheter within the bladder is present. The prostate is enlarged. Echogenic material within the bladder suggests clot. IMPRESSION: 1. Mild right collecting system dilatation without herb hydronephrosis. No left hydronephrosis. 2. Echogenic material within the bladder suggestive of clot. A coexistent bladder mass is difficult to exclude by sonography although not definitively identified. Findings could be correlated with cystoscopy. 3. 8 cm right renal cyst. 4. Enlarged prostate. ACT 112: Negative or not required by law. Electronically signed by: Anson Angel M.D. 07/31/2024 10:52 AM Abdomen/Pelvis CT 07/31/24 14:18 CT abdomen pelvis wo/w con HISTORY: 63 years-old Male gross hematuria COMPARISON: Renal ultrasound 07/31/2024 TECHNIQUE: Multiple axial CT images of the abdomen and pelvis were obtained with and without IV contrast utilizing a hematuria protocol with delayed postcontrast images. A dose lowering technique was used consistent with the principals of ALARA. FINDINGS: Trace pleural effusions with mild dependent subsegmental bibasilar atelectasis. Extensive coronary artery calcifications. No pneumatosis or pneumoperitoneum. Spleen is enlarged measuring up to 14.4 cm. Unremarkable pancreas and adrenal glands. Mildly contracted gallbladder. Fluid attenuating foci throughout the liver are suggestive of cysts measuring up to 5.4 cm, some which are partially septated. Patency of the hepatic and portal veins. Bilateral perinephric stranding. No renal or ureteral calculi or hydronephrosis. Exophytic cyst of the mid to inferior pole right kidney measures 8.3 x 7.2 x 8.0 cm. Bilateral renal sinus cysts. No enhancing renal mass lesions are seen. No upper urothelial lesion is identified. Partially decompressed bladder with Brandon catheter in place. There is a large amount of intraluminal debris/blood products in the bladder lumen. Bladder wall thickening with perivesicular stranding. Prostatomegaly. Trace free pelvic fluid. Colonic diverticulosis without acute diverticulitis. Normal appendix. No acute fracture or destructive bone lesion. IMPRESSION: 1. No renal or ureteral calculi, hydronephrosis or upper urothelial lesion. 2. Prostamegaly with evidence of chronic outlet obstruction. 3. There is a large amount of intraluminal hemorrhagic debris within the urinary bladder lumen is again noted. A bladder mass is not definitively seen, however findings could be correlated with cystoscopy. 4. Bilateral renal cysts. 5. Colonic diverticulosis. 6. Trace pleural effusions with bibasilar atelectasis. ACT 112: Negative or not required by law. The above report was generated using voice recognition software. It may contain grammatical, syntax or spelling errors. Electronically signed by: Venancio Prince M.D. 07/31/2024 3:33 PM PG Care Time/CCT Total # of Minutes Spent Total Time Spent with Patient: Total time spent is greater than 50% in coordination of care (as documented) at patient's floor/unit and/or counseling patient: Coding Level of Care Code 11087 SUB INP/OBS CARE 3/50MIN Diagnoses Neck pain M54.[address] elevation myocardial infarction (STEMI) I25.2 Hypertension I10 Aortic root dilation I77.810 Hypothyroidism E03.9 Coronary artery disease I25.10
--- NOTE | 2024-08-01 12:49 | Urology Progress Note ---
<Statement entered by Bradford Mccullough MD - 08/01/24 13:04> 63-year-old male with gross hematuria, potentially related to CIC or UTI. He should have full workup as an outpatient with cystoscopy. Recent CT scan suggested some clot within the bladder. This may be challenging to irrigate out through his current catheter, but also seems unlikely to obstruct given the dependent position. No plan for surgical intervention at this point. Urology will follow along. Date of Service August 01, 2024 Assessment & Plan (1) Gross hematuria: Plan 63yo male admitted with leukopenia, elevated TB/AST/ALT, subjective fever/chills, Neck Pain - Urology consulted for hematuria Hx of BPH with CIC 1x/day. Pt developed gross hematuria yesterday Three-way Marquis catheter was placed by nursing staff. He is afebrile with stable vitals at present Labs-WBC 6.16, hemoglobin 13.2 -12.3 today, creatinine 0.93 Urine culture grew E. coli CT reviewed from yesterday -large amount of intraluminal hemorrhagic debris within the bladder, no renal or ureteral calculi, hydronephrosis or upper urothelial lesion. Marquis catheter was manually hand irrigated by nursing staff yesterday. On exam today, the Marquis catheter was currently draining light red urine without clot. I manually hand irrigated the catheter without issue. No clots. Pt tolerated well. Now draining light pink urine. Maintain Marquis catheter and continue to monitor output, can hand irrigate as needed for clots, retention, suprapubic pain. No plan for intervention at this time. Continue antibiotic therapy. Urology will follow along, please call with any questions/concerns. Admission and Anticipated Discharge Date Admission Date: July 30, 2024 Subjective Pt seen at bedside today No acute distress Has been NPO Marquis draining light red urine He did require hand irrigation yesterday by nursing staff No reported pain No fevers Review of Systems Constitutional: as per Subjective / HPI Genitourinary: + as per Subjective / HPI Physical Exam Constitutional: no acute distress Respiratory: no respiratory distress and no labored breathing Skin: No visible rashes or lesions to exposed skin areas Neurologic: moves all extremities and awake Psychiatric: A+Ox3, euthymic affect Genitourinary: Marquis intact and draining w/hematuria Results & Data Vital Signs (Past 12 Hours) Vital Signs Temp Pulse Pulse Resp BP Pulse Ox O2 Del Method 08/01/24 10:58 36.4 C L 65 18 106/64 99 Room Air 08/01/24 07:01 65 08/01/24 07:00 36.3 C L 74 18 108/72 98 Room Air 08/01/24 03:02 36.7 C 67 16 100/62 99 Room Air PG Care Time/CCT Total # of Minutes Spent Total Time Spent with Patient: Total time spent is greater than 50% in coordination of care (as documented) at patient's floor/unit and/or counseling patient: Coding Level of Care Code 80380 SUB INP/OBS CARE 3/50MIN Diagnoses Gross hematuria R31.0
[2024-08-01 15:17] LABS: CMV IgG Antibody <0.60 U/mL; CMV IgM Antibody <30.00 AU/mL
[2024-08-02 02:47] VITALS: RESP 18
[2024-08-02 06:42] LABS: Hematocrit (blood only) 34.4 % (42.0-52.0); Hemoglobin 12.1 g/dl (14.0-18.0); Mean Corpuscular Hemoglobin 31.7 pg (25.0-34.0); Mean Corpuscular Hgb Conc 35.2 g/dL (32.0-36.0); Mean Corpuscular Volume 90.1 fL (80.0-100.0); Mean Platelet Volume 10.3 fL (9.4-12.4); Platelet Count 167 K/uL (130-400); RDW Coefficient of Variation 12.4 % (11.5-14.5); Red Blood Count 3.82 M/uL (4.70-6.10); White Blood Count 5.52 K/ul (4.8-10.8)
[2024-08-02 07:18] LABS: BUN Creatinine Ratio 15.2 (10-20); Calcium 8.8 mg/dl (8.6-10.3); Creatinine Clr Calc Pharmacy 77.8 ml/min; Potassium 4.2 mmol/L (3.5-5.1)
--- NOTE | 2024-08-02 07:59 | Hospitalist Progress Note ---
Date of Service August 02, 2024 Assessment & Plan (1) Neck pain: (2) History of ST elevation myocardial infarction (STEMI): (3) Hypertension: (4) Aortic root dilation: (5) Hypothyroidism: (6) Coronary artery disease: Plan 63yo male presented with likely post-viral syndrome w/ acute neck pain/subjective fever/chills last week and feeling ill. Viral testing negative, CXR no acute process. Blood cx obtained on admission and troponin was elevated however no CP but was placed on Heparin gtt by ER provider and cards rec against such and was stopped but developed hematuria as below and found to have evidence for UTI possibly 2nd to CIC w/ underlying BPH and not taking his flomax daily. #Hematuria, Possible UTI, BPH- hematuria developed overnight 07/30-07/31 - suspected 2nd to heparin/aspirin and straight cath at baseline but given subjective fever/chills and UA ordered from admission w/ + nitrites/leuk esterase, 2+ bacteria and no epis, could have underlying UTI. Prior followed w/ urology and on flomax daily which has been continued on admission Urology consulted CTAP w/ Prostatomegaly with evidence of chronic outlet obstruction. There is a large amount of intraluminal hemorrhagic debris within the urinary bladder lumen is again noted. A bladder mass is not definitively seen, however findings could be correlated with cystoscopy. 3 way brandon placed, irrigated by hand/flushed 08/01 and no further irrigation required UA obtained and appeared infected, urine cx ecoli w/ some resistance Ceftriaxone IV (has received 3 doses) Hgb stable, hematuria slowing ASA remaining on hold for now, hopeful resume early this upcoming week. Consideration for proscar at mi for BPH Per urology, ok for voiding trial and nursing to remove this morning and monitoring this afternoon for any issues but if able to void without issues can plan for dc on Cipro to complete course, compliance w/ flomax daily and outpatient urology follow up for eval underlying malignancy/mass. Discussed monitoring for tendinopathy on FLQ #Leukopenia, elevated TB/AST/ALT, subjective fever/chills, Neck Pain (resolved), See prior notes, likely viral illness but now w/ above WBC normalized/afebrile, LFTs normalized on repeat and blood cultures remain NGTD Tx UTI/hematuria above #Elevated Troponin, CAD - hx STEMI, follows w/ Dr Raman. Trop peak 236 on admission, ?demand ischemia from infection vs other w/ ? underlying event this past week w/ acute neck pain/diaphoresis. Some ST changes but no CP reported and troponin trended down on repeat. ECHO w/o wma and per cards no further evaluation needed Continues on statin, lisinopril. ASA placed on hold due to hematuria above Monitor for any CP, EKG if occurs Downgrade off telemetry if remains inpatient but possible dc this afternoon as above #Hypothyroidism - TSH wnl and remains on 100mcg Synthroid daily #HTN - Continue lisinopril 10mg daily #Hypokalemia - replaced/resolved and remains stable #LFT elevation - on admission. tick studies negative/babesia PCR pending but LFTs normalized EBV pending given possible recent viral illness this past week *Is on zepbound for weight loss and reports ~40lb weight loss --> as above, ?hypoglycemia and will check BSG AC/HS to monitor -- POC 90-low 100s. --> Likely benefit from checking periodically at home to prevent lows w/ ongoing use if not eating/drinking regularly DVT proph: SCDs, ambulation, chemoproph contraindicated w/ hematuria above Dispo: continued inpatient stay/voiding trial, possible dc this afternoon on PO Cipro w/ Urology follow up Admission and Anticipated Discharge Date Admission Date: July 30, 2024 Subjective Eval this morning, sitting in chair. Brandon draining with grimm red urine in bag, pinker in tubing. Seen by Urology, discussed voiding trial which Mr Castaneda would very much like to try. Discussed will have nursing remove this morning and monitor for any issues but if voiding after lunch without issues could consider dc on Cipro with outpatient follow up. Flomax compliance encouraged and return sx discussed. No CP/SOB, abdominal pain nausea or vomiting. Discussed Cipro/side effects, thankful for discussion as is very active at baseline. Questions/concerns addressed at this time. Physical Exam 2 Physical Exam: General: 63yo male ambulating in the room, NAD HEENT: head atraumatic, normocephalic, mm stable, trachea midline Resp: even, unlabored, no wheezing/rales, on RA CV: regular, no significant mrg, NO pitting edema or calf tenderness, pulses present, cap refill wnl GI: +BS, soft/nontender : brandon draining bloody urine, clearer in tubing, no need for repeat irrigation overnight MSK/Neuro: nonfocal, able to answer questions appropriately, not confused, no meningeal signs, ambulating in the room with steady gate and no assistive device Psych:AOx3, cooperative during exam Results & Data Results & Data Vital Signs (Past 12 Hours) Vital Signs Temp Pulse Pulse Resp BP Pulse Ox O2 Del Method 08/02/24 02:46 36.4 C L 62 18 100/64 97 Room Air 08/01/24 22:52 36.4 C L 62 16 103/68 97 Room Air 08/01/24 21:47 60 Laboratory Results 08/02/24 05:44 08/02/24 05:44 PG Care Time/CCT Total # of Minutes Spent Total Time Spent with Patient: Total time spent is greater than 50% in coordination of care (as documented) at patient's floor/unit and/or counseling patient: Coding Level of Care Code 50177 SUB INP/OBS CARE 3/50MIN Diagnoses Neck pain M54.[address] elevation myocardial infarction (STEMI) I25.2 Hypertension I10 Aortic root dilation I77.810 Hypothyroidism E03.9 Coronary artery disease I25.10
--- NOTE | 2024-08-02 09:04 | Urology Progress Note ---
Date of Service August 02, 2024 Assessment & Plan (1) Gross hematuria: (2) BPH loc w/o ur obs/LUTS: Plan Hematuria is clearing well. There may be some residual clot in the bladder, however due to angulation from enlarged prostate I think these will be challenging to remove with manual irrigation. We discussed the possibility of clot evacuation under anesthesia, but this could also increase bleeding. Catheter may be causing irritation as well. We discussed a voiding trial, especially since he knows how to perform CIC. He was interested in having the catheter removed. We will remove catheter this morning. If he is able to void, I think he could reasonably be discharged home on oral antibiotics to cover his E. coli UTI. He will require further evaluation outpatient with cystoscopy and he was amenable to this plan. Urology will coordinate this as a next step. Admission and Anticipated Discharge Date Admission Date: July 30, 2024 Subjective Feeling well this morning Catheter has been draining without any issues overnight, urine gradually clearing Hemoglobin remains relatively stable (12.1 today from 12.3 yesterday). Creatinine 0.99. Urine culture demonstrating E. coli Physical Exam Physical Exam: Well-appearing, NAD Marquis catheter in place draining pink urine Results & Data Vital Signs (Past 12 Hours) Vital Signs Temp Pulse Pulse Resp BP Pulse Ox O2 Del Method 08/02/24 08:23 36.5 C 65 18 100/62 92 Room Air 08/02/24 02:46 36.4 C L 62 18 100/64 97 Room Air 08/01/24 22:52 36.4 C L 62 16 103/68 97 Room Air 08/01/24 21:47 60 PG Care Time/CCT Total # of Minutes Spent Total Time Spent with Patient: Total time spent is greater than 50% in coordination of care (as documented) at patient's floor/unit and/or counseling patient: Coding Level of Care Code 97373 SUB INP/OBS CARE 2/35MIN Diagnoses Gross hematuria R31.0 BPH loc w/o ur obs/LUTS N40.0
[2024-08-02 10:57] VITALS: BP 107/66; TEMP 97.3; O2SAT 98
--- NOTE | 2024-08-02 13:20 | Discharge Summary ---
Discharge Summary Date of Service August 02, 2024 Principal Dx & Hospital Course #1 = Principal Diagnosis (1) Gross hematuria: (2) Neck pain: (3) Elevated troponin: (4) History of ST elevation myocardial infarction (STEMI): (5) Hypertension: (6) Aortic root dilation: (7) Hypothyroidism: (8) Coronary artery disease: Plan 63yo male presented with likely post-viral syndrome w/ acute neck pain/subjective fever/chills last week and feeling ill. Viral testing negative, CXR no acute process. Blood cx obtained on admission and troponin was elevated however no CP but was placed on Heparin gtt by ER provider and cards rec against such and was stopped but developed hematuria as below and found to have evidence for UTI possibly 2nd to CIC w/ underlying BPH and not taking his flomax daily and ?if having UTI brewing as culprit for feeling ill this past week #Hematuria, Possible UTI, BPH- hematuria developed overnight 07/30-07/31 - suspected 2nd to heparin/aspirin and straight cath at baseline but given subjective fever/chills and UA ordered from admission w/ + nitrites/leuk esterase, 2+ bacteria and no epis, 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 Previously followed with Urology and prior CIC 2x/yr but has been much more frequent 3 way brandon placed, renal US ordered and urology consulted who ordered CTAP for eval CTAP w/ Prostatomegaly with evidence of chronic outlet obstruction. There is a large amount of intraluminal hemorrhagic debris within the urinary bladder lumen is again noted. A bladder mass is not definitively seen, however findings could be correlated with cystoscopy. Irrigated/flushed by urology COL[place] 08/01 and not needing since UA obtained and appeared infected, cx w/ e coli w/ some resistance Had been provided Ceftriaxone IV daily x 3 doses and review sensitivities unable to utilize bactrim and decision for Cipro 500mg BID. Discussed monitoring for tendinopathy on FLQ Blood cultures from admission remain NGTD and WBC normalized/remained afebrile and wanting to go home. Discussed w/ Urology AM 08/02 and believed to be clearing up/no intervention at this time and offered voiding trial which patient wanted and was removed/voided x 2 550cc without pain or issue and can discharge on PO Cipro, rec increased compliance w/ flomax daily and outpatient urology follow up for cysto/evaluation. Aspirin remained on hold and can resume this upcoming week if no longer having any issues. Rec consideration for proscar in f/u urology for enlarged prostate but also suspect benefit from intervention like REZUM for assistance in future #Leukopenia, elevated TB/AST/ALT, subjective fever/chills, Neck Pain (resolved) -See prior notes, likely viral illness this past week but ?if possibly related to brewing uti. Lyme testing negative, smear neg for inclusion bodies. PCR testing pending at [facility]. No acute findings on CTAP for GB pathology but does have mildly contracted GB and possible cysts however no RUQ tenderness and LFTs normalized on repeat testing and no recent tylenol/etoh use reported WBC normalized w/ tx above and continued PO abx at [facility]. No meningeal signs on exam and CT head negative on admission and mental status wnl on repeat evals #Elevated Troponin, CAD - hx STEMI, follows w/ Dr Raman. Trop peak 236 on admission, ?demand ischemia from infection vs other w/ ? underlying event this past week w/ acute neck pain/diaphoresis. Some ST changes but no CP reported and troponin trended down on repeat. ECHO w/o wma and per cards no further evaluation needed and continued on statin/lisinopril. Aspirin as above. No CP and remained stable SR/SB on monitor and not on BB at baseline #Hypothyroidism - TSH wnl and remained on 100mcg Synthroid daily #HTN - Continued lisinopril 10mg daily, BP stable #Hypokalemia - replaced/resolved and remains stable on repeat testing #LFT elevation - on admission. tick studies negative/babesia PCR pending but LFTs normalized. EBV pending given possible recent viral illness this past week *Is on zepbound for weight loss and reports ~40lb weight loss --> as above, ?hypoglycemia and will check BSG AC/HS to monitor -- POC 90-low 100s. --> Likely benefit from checking periodically at home to prevent lows w/ ongoing use if not eating/drinking regularly DVT proph: SCDs, ambulation, chemoproph contraindicated w/ hematuria above and no evidence for DVT/no hypoxia or pleuritic pain Dispo: [place] on PO abx, urology follow up Notes For Next Care Provider Ensure follow up with urology for cystoscopy for evaluation F/u Blood cultures, babesia PCR, EBV testing monitor for need for any repeat abd imaging for cyst to liver but no CBD dilatation/RUQ pain and LFTs normalized on repeat Medication Changes From Visit Cipro 500mg BID Admission HPI Per Admitting Provider 63yo male with PMHx significant for CAD s/p stent 2020, aortic root dilatation (4.2cm), HTN, hypothyroidism presented with subjective fever/chills, fatigue and brain fog since last Sunday when walking his dogs with acute sudden onset of neck pain followed by subjective fever/chills. Neck pain since resolved but not feeling "back to normal" Patient evaluated in A10, reports symptoms started on Sunday when walking dogs with acute onset of neck pain/fever/chills but no temp at home. He reports he felt he had a virus and went home to lay down and slept for about a day or so and by Sunday had been feeling well enough to travel to [place] to be with who was having medical procedure but then slept most of that evening and traveled back Sunday evening and has not felt right. Reports his neck pain is currently gone. He denies any leg swelling/edema or history of clot. No CP but was concerned about having a stroke. CT head is negative for acute CVA. No hx of DM but is on Zepbound for weight loss and increased and has been on 10mg but never checked his sugars. Last administration Zepbound was on SUNDAY. Troponin initially elevated 236--> 206 on repeat. No CP at present time or pain between shoulder blades. No cough/sputum production. No meningeal signs at present. Discussed obtaining ECHO, further testing for evaluation for cause including tick panel. No bites/ticks recently reported but does walk in the [place] per patient. No bulls-eye rash on exam noticeable however slight pink like rash anterior chest. Hx of heavy alcohol use/marijuana/psychedelics but quit >40 years ago this sunday. No recent alcohol or Tylenol Heparin gtt initiated in ER however placed on hold for now per Dr Key. Have ordered ECHO and repeat troponin to trend and patient to alert if any issues. CT head negative CXR negative, no hypoxia. Biofire negative WBC leukopenia/lymphopenia, plt 139, K 3.3. Lactic 1.0. TSH added and wnl 4.3. BUN/Cr 19/0.98, TB 1.2, AST 43, ALT 63, ALP 59 Admission Exam Per Admitting Provider General: 63yo male sitting up in bed, NAD HEENT: head atraumatic, normocephalic, mm slightly dry, trachea midline Resp: even, unlabored, no wheezing/rales, 98% on RA CV: regular, no significant mrg, NO pitting edema or calf tenderness, pulses present, cap refill wnl GI: +BS, soft/NT MSK/Neuro: nonfocal, able to answer questions appropriately, not confused but some "brain fog", no meningeal signs/bony step offs Psych:AOx3, cooperative and pleasant during exam Discharge Exam General: 63yo male ambulating in the room, NAD HEENT: head atraumatic, normocephalic, mm stable, trachea midline Resp: even, unlabored, no wheezing/rales, on RA CV: regular, no significant mrg, NO pitting edema or calf tenderness, pulses present, cap refill wnl GI: +BS, soft/nontender : brandon removed prior to dc and voiding since , 550cc reported by nursing MSK/Neuro: nonfocal, able to answer questions appropriately, not confused, no meningeal signs, ambulating in the room with steady gate and no assistive device Psych:AOx3, cooperative during exam Discharge Plan Discharge Items Patient Disposition: Home - Self-Care Reason For Visit: ELEVATED TROPONIN, FEVER/CHILLS, ?TICK ILLNESS VS Discharge Diagnosis: Urinary tract infection, hematuria Condition on Discharge: Fair Goals: You have been hospitalized for an acute medical problem. During your stay at [facility], we have made an effort to correct the problem that brought you to the hospital while keeping you as comfortable as possible. Medications were used to bring your condition under control and your discharge instructions will include directions for any medications you should take after leaving the hospital. Please make sure you see your Primary Care Provider as part of your follow up plan. Activity: As commented below Non-emergency contact: Primary Care Provider and Urologist Call non-emergency contact if: you have any medication questions, your symptoms worsen, your pain is not controlled, your pain is concerning for you and you have a fever Follow-up/Referrals: Ronal Boucher MD [Physician] - Mic Lange DO [Primary Care Provider] - Diet: Low Potassium (2gm) Addtl Attending Provider Instructions: You have been hospitalized for concerns for lightheaded/dizziness. CT head was negative for acute stroke. You could have had a viral illness this past week or the start of possible urinary tract infection due to enlarged prostate and outlet obstruction. Unfortunately you were placed on heparin for blood thinning agent for concerns elevated troponin and developed hematuria likely due to combination of infection and catheterization but also due to blood thinners. Thankfully, troponin evaluated and trended down and ECHO (ultrasound of the heart) did not show any evidence for wall motion abnormality concerning for cardiac event and this was stopped. Your urine showed ECOLI and you were given IV antibiotics with Ceftriaxone and discussed with urology to send home on oral antibiotics to complete the course with CIPROFLOXACIN. You have received 3 days of IV antibiotics and can start the ciprofloxacin tomorrow morning as your dose of IV this morning covers for 24 hours and you will continue twice daily for another 4 days to complete 7 day course. Brandon was removed and aspirin placed on hold but if stable without increased bleeding you can resume this on Sunday evening vs Sunday but I recommend carla cuadra with primary care/cardiology office if needing held longer. Please continue flomax daily to prevent retention issues and they can consider adding medication like Proscar to help shrink the prostate but you should also have follow up with urology to discuss possible cystoscopy for evaluation for any underlying malignancy as discussed. Please continue to stay well hydrated and drink plenty of fluids. Please follow up with primary care and urology in the next week to monitor your progress. Please discuss about getting machine to check blood sugars prior to resuming zepbound to ensure not having lows. Please return to the ER with any increased hematuria (blood in urine), fever/chills, inability to urinate or catheterize yourself, chest pain, shortness of breath, increased abdominal pain, or for any other symptoms concerning for you. It has been a pleasure being a part of the medical team providing for you while you have been in the hospital. Take care! Pending Studies at Discharge: Yes Studies:: blood cultures - no growth to date babesia pcr Stand-Alone Forms: My [facility] Independent Space, Smoking Cessation Medications and DC Order Prescriptions: New ciprofloxacin HCl 500 mg tablet 500 mg PO BID Qty: 8 0RF Continued atorvastatin [Lipitor] 80 mg tablet 80 mg PO QPM Qty: 90 3RF tirzepatide (weight loss) 10 mg/0.5 mL pen injector 10 mg subcut Q7D Qty: 2 2RF Rx Instructions: tamsulosin [Flomax] 0.4 mg capsule 0.4 mg PO HS Qty: 90 3RF creatine monohydrate 5,000 mg Powder In Packet 5,000 mg PO DAILY Rx Instructions: Mixed in morning shake levothyroxine [Euthyrox] 100 mcg tablet 100 mcg PO DAILYBB Rx Instructions: TAKE 1 TABLET BY MOUTH ONCE DAILY IN THE MORNING lisinopril 10 mg tablet 10 mg PO QPM Held aspirin [Rowdy Low Dose Aspirin] 81 mg tablet,delayed release (DR/EC) 81 mg PO QPM Hold Instructions: hold until discussed with PCP/cardiology but if not having issues can resume on Sunday Discharge Orders: Discharge Order (Routine); Ordered 08/02/24 Ordered By: Ashley Meyer Admission Data Admit Date/Time: 07/30/24 15:52 Attending Provider: Agustina Jackson Admit Provider: Agustina Jackson Primary Care Provider: Mic Lange Other Providers: Ronal Key; Ronal Boucher Hospital Stay Data Consultations 07/30/24 17:23 Consult Cardiology Routine 07/31/24 09:09 Consult Urology Routine Diagnostic Imagining Performed Head CT 07/30/24 12:27 CT head/brain wo con CLINICAL HISTORY: 63 years-old Male with dysequilibrium. Acutely altered mental status TECHNIQUE: Multiple axial CT images of the head were obtained without contrast. A dose lowering technique was utilized adhering to the principles of ALARA. CT DOSE: 625.8 mGy.cm COMPARISON: None. FINDINGS: No acute intracranial hemorrhage, midline shift, intracranial mass, hydrocephalus, territorial ischemia or abnormal extra-axial collection. Involutional changes. Mild white matter hypodensities may represent chronic microvascular ischemic disease. Cerebral vascular calcifications. The calvarium is intact. The paranasal sinuses, mastoid air cells, and middle ear cavities are clear. IMPRESSION: No acute intracranial abnormality. ACT 112: Negative or not required by law. The above report was generated using voice recognition software. It may contain grammatical, syntax or spelling errors. Electronically signed by: Venancio Prince M.D. 07/30/2024 1:16 PM Chest X-Ray 07/30/24 12:28 XR chest 2V PA/lateral CLINICAL HISTORY: fever/ chills COMPARISON STUDY: 02/07/2020 FINDINGS: Heart size and pulmonary vasculature are normal. No effusion or consolidation. IMPRESSION: No pneumonia seen. ACT 112: Negative or not required by law. Electronically signed by: James Ricketts M.D. 07/30/2024 1:28 PM Renal Ultrasound 07/31/24 09:18 RENAL ULTRASOUND CLINICAL HISTORY: Hematuria. COMPARISON STUDY: None. TECHNIQUE: Sonography of the kidneys and the urinary bladder was performed. FINDINGS: Several hepatic cysts are incidentally noted. The largest cyst measures 5.4 cm and contains a few thin septations The right kidney measures 13.5 x 5.4 x 6.4 cm and the left kidney measures 13.3 x 5.4 x 6.3 cm. There is mild right collecting system dilatation without herb hydronephrosis. There is no left hydronephrosis. 8.1 cm right lower pole renal cyst is present. There are left-sided parapelvic cysts. A Brandon catheter within the bladder is present. The prostate is enlarged. Echogenic material within the bladder suggests clot. IMPRESSION: 1. Mild right collecting system dilatation without herb hydronephrosis. No left hydronephrosis. 2. Echogenic material within the bladder suggestive of clot. A coexistent bladder mass is difficult to exclude by sonography although not definitively identified. Findings could be correlated with cystoscopy. 3. 8 cm right renal cyst. 4. Enlarged prostate. ACT 112: Negative or not required by law. Electronically signed by: Anson Angel M.D. 07/31/2024 10:52 AM Abdomen/Pelvis CT 07/31/24 14:18 CT abdomen pelvis wo/w con HISTORY: 63 years-old Male gross hematuria COMPARISON: Renal ultrasound 07/31/2024 TECHNIQUE: Multiple axial CT images of the abdomen and pelvis were obtained with and without IV contrast utilizing a hematuria protocol with delayed postcontrast images. A dose lowering technique was used consistent with the principals of KUMAR. FINDINGS: Trace pleural effusions with mild dependent subsegmental bibasilar atelectasis. Extensive coronary artery calcifications. No pneumatosis or pneumoperitoneum. Spleen is enlarged measuring up to 14.4 cm. Unremarkable pancreas and adrenal glands. Mildly contracted gallbladder. Fluid attenuating foci throughout the liver are suggestive of cysts measuring up to 5.4 cm, some which are partially septated. Patency of the hepatic and portal veins. Bilateral perinephric stranding. No renal or ureteral calculi or hydronephrosis. Exophytic cyst of the mid to inferior pole right kidney measures 8.3 x 7.2 x 8.0 cm. Bilateral renal sinus cysts. No enhancing renal mass lesions are seen. No upper urothelial lesion is identified. Partially decompressed bladder with Brandon catheter in place. There is a large amount of intraluminal debris/blood products in the bladder lumen. Bladder wall thickening with perivesicular stranding. Prostatomegaly. Trace free pelvic fluid. Colonic diverticulosis without acute diverticulitis. Normal appendix. No acute fracture or destructive bone lesion. IMPRESSION: 1. No renal or ureteral calculi, hydronephrosis or upper urothelial lesion. 2. Prostamegaly with evidence of chronic outlet obstruction. 3. There is a large amount of intraluminal hemorrhagic debris within the urinary bladder lumen is again noted. A bladder mass is not definitively seen, however findings could be correlated with cystoscopy. 4. Bilateral renal cysts. 5. Colonic diverticulosis. 6. Trace pleural effusions with bibasilar atelectasis. ACT 112: Negative or not required by law. The above report was generated using voice recognition software. It may contain grammatical, syntax or spelling errors. Electronically signed by: Venancio Prince M.D. 07/31/2024 3:33 PM Pending Results Patient Have Any Pending Studies at Discharge: Yes Discharge Instructions Given to Patient (Per Discharging Provider) You have been hospitalized for concerns for lightheaded/dizziness. CT head was negative for acute stroke. You could have had a viral illness this past week or the start of possible urinary tract infection due to enlarged prostate and outlet obstruction. Unfortunately you were placed on heparin for blood thinning agent for concerns elevated troponin and developed hematuria likely due to combination of infection and catheterization but also due to blood thinners. Thankfully, troponin evaluated and trended down and ECHO (ultrasound of the heart) did not show any evidence for wall motion abnormality concerning for cardiac event and this was stopped. Your urine showed ECOLI and you were given IV antibiotics with Ceftriaxone and discussed with urology to send home on oral antibiotics to complete the course with CIPROFLOXACIN. You have received 3 days of IV antibiotics and can start the ciprofloxacin tomorrow morning as your dose of IV this morning covers for 24 hours and you will continue twice daily for another 4 days to complete 7 day course. Brandon was removed and aspirin placed on hold but if stable without increased bleeding you can resume this on Sunday evening vs Sunday but I recommend talking with primary care/cardiology office if needing held longer. Please continue flomax daily to prevent retention issues and they can consider adding medication like Proscar to help shrink the prostate but you should also have follow up with urology to discuss possible cystoscopy for evaluation for any underlying malignancy as discussed. Please continue to stay well hydrated and drink plenty of fluids. Please follow up with primary care and urology in the next week to monitor your progress. Please discuss about getting machine to check blood sugars prior to resuming zepbound to ensure not having lows. Please return to the ER with any increased hematuria (blood in urine), fever/chills, inability to urinate or catheterize yourself, chest pain, shortness of breath, increased abdominal pain, or for any other symptoms concerning for you. It has been a pleasure being a part of the medical team providing for you while you have been in the hospital. Take care! Total Time Total Time Spent Total Time Spent (In Minutes): 55 Coding Level of Care Code 66458 INP/OBS DISCH >30 MIN Diagnoses Gross hematuria R31.0 Neck pain M54.2 Elevated troponin R79.[address] elevation myocardial infarction (STEMI) I25.2 Hypertension I10 Aortic root dilation I77.810 Hypothyroidism E03.9 Coronary artery disease I25.10
[2024-08-02 13:57] VITALS: PULSE 65
[2024-08-04 23:57] LABS: Babesia microti DNA Not Detected (Not Detected)
== END 2024-08-02 14:28 | disposition home or self-care (01) | DRG 690 ==
LOC: ED 11:21 → 2S 15:52 → INTOOBSV 15:52 → SUATTDRO 15:52 → 2S 16:37